=== PATIENT | male | born 1940 | race Caucasian/White ===

== ENCOUNTER 2023-01-12 18:51 | Emergency (ER) | payer MEDICARE, OTHER ==
--- NOTE | 2023-01-12 20:37 | ED Physician Documentation ---
History of Present Illness - Stated complaint Stated Complaint: LEG SWELLING - Chief complaint Chief Complaint: Ext Problem - History obtained from History obtained from: Patient - Additonal information Additional information: HPI from patient. Patient complains of gradual onset but steadily progressive swelling of bilateral lower extremities, scrotum.Denies history of similar symptoms. Does not offer shortness of breath as a chief complaint, but does indicate he is having some dyspnea on exertion on ROS; this JOSEPH has also been over past 3-4 days. Patient takes no medications and has no medication allergies. He does not have a primary care provider and, after much discussion, it is apparent that he has no recollection as to when he last saw a primary care provider on a routine basis. Patient denies chest pain/pressure/tightness. Patient denies fever, cough. Review of Systems Constitutional: denies: Fever, Chills, Sweats Cardiac: reports: Pedal edema. denies: Chest pain / pressure, Palpitations, Calf pain Respiratory: reports: Dyspnea. denies: Cough, Hemoptysis, Wheezing GI: reports: Reviewed and negative : denies: Dysuria, Frequency Skin: reports: Reviewed and negative Musculoskeletal: reports: Extremity swelling Neurologic: denies: Generalized weakness, Focal weakness, Numbness, Headache PD PAST MEDICAL HISTORY - Past Medical History Past Medical History: Yes Other Past Medical History: Patient says he was seen by a urologist in connection with visit to the emergency department at [facility] 1 or 2 years ago. The details are unclear, but patient says that there was suspicion of a tumor which has resulted in difficulty urinating; as result, patient self c aths several times each day - Present Medications Home Medications: Ambulatory Orders Medication Instructions Recorded Confirmed Apixaban [Eliquis] 5 mg PO BID #60 tablet 01/13/23 Furosemide [Lasix] 40 mg PO DAILY #14 tablet 01/13/23 Metoprolol Tartrate [Lopressor] 50 mg PO BID #60 tablet 01/13/23 - Allergies Allergies/Adverse Reactions: Allergies Allergy/AdvReac Type Severity Reaction Status Date / Time No Known Drug Allergies Allergy Verified 01/12/23 18:55 PD ED PE NORMAL - Vitals Vital signs reviewed: Yes - General General: Alert and oriented X 3, No acute distress, Well developed/nourished - HEENT HEENT: Moist mucous membranes - Neck Neck: No JVD - Respiratory Respiratory: No respiratory distress, Other (bibasial rales, predominantly on right) - Abdomen Abdomen: Soft, Non tender - Derm Derm: Normal color, Warm and dry PD ED PE EXPANDED - Cardiac Cardiac: Irregularly irregular - Extremities Extremities: Pedal edema bilateral (2+ pitting edema bilaterally from inguinal creases to toes) Results - Vitals Vitals: Oxygen O2 Source Room air - EKG (time done) No standard instances EKG releavant findings:: EKG personally interpreted by author of this note. Relevant findings are: Rate: Rate (enter#) (105) Rhythm: Atrial fibrillation QRS: Normal Ischemia: Non specific changes - Labs Labs: Laboratory Tests 01/12/23 01/12/23 01/12/23 20:57 20:57 20:57 WBC 9.3 RBC 4.77 Hgb 14.2 Hct 43.0 MCV 90.1 MCH 29.8 MCHC 33.0 RDW 14.8 Plt Count 237 MPV 9.9 Neut # (Auto) 6.1 Lymph # (Auto) 1.6 [place] # (Auto) 1.4 H Eos # (Auto) 0.0 Baso # (Auto) 0.1 Absolute Nucleated RBC 0.00 Nucleated RBC % 0.0 PT INR APTT Sodium 135 Potassium 4.2 Chloride 99 L Carbon Dioxide 25 Anion Gap 11.0 BUN 18 Creatinine 0.9 Estimated GFR (MDRD) 81 L Glucose 91 Calcium 9.2 Total Bilirubin 1.5 H AST 58 H ALT 46 Alkaline Phosphatase 153 H Troponin I High Sens 30.7 H* B-Natriuretic Peptide Total Protein 7.6 Albumin 3.8 Globulin 3.8 Albumin/Globulin Ratio 1.0 Lipase 31 TSH 01/12/23 01/13/23 01/13/23 20:57 02:01 02:01 WBC RBC Hgb Hct MCV MCH MCHC RDW Plt Count MPV Neut # (Auto) Lymph # (Auto) [place] # (Auto) Eos # (Auto) Baso # (Auto) Absolute Nucleated RBC Nucleated RBC % PT INR APTT Sodium Potassium Chloride Carbon Dioxide Anion Gap BUN Creatinine Estimated GFR (MDRD) Glucose Calcium Total Bilirubin AST ALT Alkaline Phosphatase Troponin I High Sens 31.4 H* B-Natriuretic Peptide 921 H Total Protein Albumin Globulin Albumin/Globulin Ratio Lipase TSH 2.90 01/13/23 04:43 WBC RBC Hgb Hct MCV MCH MCHC RDW Plt Count MPV Neut # (Auto) Lymph # (Auto) [place] # (Auto) Eos # (Auto) Baso # (Auto) Absolute Nucleated RBC Nucleated RBC % PT 16.4 H INR 1.5 H APTT 37.3 H Sodium Potassium Chloride Carbon Dioxide Anion Gap BUN Creatinine Estimated GFR (MDRD) Glucose Calcium Total Bilirubin AST ALT Alkaline Phosphatase Troponin I High Sens B-Natriuretic Peptide Total Protein Albumin Globulin Albumin/Globulin Ratio Lipase TSH - Rads (name of study) chest xray Relevant Findings:: Prelim report reviewed, See rad report PD Medical Decision Making - ED course Complexity details: reviewed results, re-evaluated patient, considered differential, d/w patient ED course: presents with chief c/o BLE edema and found to be in new-onset atrial fibrill ation. Timing of onset of atrial fibrillation is unknown; patient does not feel palpitations. Electrocardioversion in ED is not an option due to unknown onset. He has no EKG findings nor symptoms (specifically, no chest pain/pressure) to suggest ACS , and hs-cTn , although mildly elevated (30.2), is without significant change on 5-hour redraw (31.4). BNP elevated at 921 and this, combined with BLE edema and abnormalities on cxr (cardiomegaly, pulmonary effusions and edema) are s/o CHF. Normal TSH makes hyper/hypothyroid cause/contribution unlikely. Initial plan was to hold patient overnight in ED for admit in AM when beds become available; reason for admission would be mutifactorial: patient has no PMD and thus obtaining follow up in a timely fashion would be challenging, and medications for new-onset atrial fibrillation, CHF, and HTN can be monitored for appropriate effect and titrated accordingly. Patient was held in ED overnight, but it was found that metoprolol PO effected good rate control, adequate BP improvement (remained elevated but increasingly appropriate for outpatient f/u). He is given lovenox for anticoagulation, then rx eliquis. He is given lasix IV in ED with good UO and improvement in his subjective dyspnea (no respiratory difficulty/distress throughout ED stay). Lasix and metoprolol prescriptions also provided. Although echo was ordered, unclear if/when this would be done. Given his gradual but steady improvement overnight , with achievement of rate control (remains in atrial fibrillation), modest but adequate improvement in blood pressures, and brisk diuresis with no respiratory problems and normal room-air pulse ox, plan is to d/c home. Despite not having seen a PMD for many years, he does have insurance and thus confidence is high that he will be able to arrange follow up with a PMD in a reasonable timeframe (ideally, within no more than 2-3 weeks). We discussed his diagnoses, medications, and return precautions at length. He is comfortable with d/c home. Departure - Departure Disposition: , Self Care Clinical Impression: Peripheral edema Atrial fibrillation Qualifiers: Atrial fibrillation type: persistent (not longstanding) Qualified Code(s): I48.19 - Other persistent atrial fibrillation Hypertension Qualifiers: Hypertension type: unspecified Qualified Code(s): I10 - Essential (primary) hypertension Condition: Good Instructions: ED Afib, ED Edema Legs Bilateral, ED Hypertension New Begin Tx Prescriptions: Apixaban [Eliquis] 5 mg PO BID #60 tablet Furosemide [Lasix] 40 mg PO DAILY #14 tablet Metoprolol Tartrate [Lopressor] 50 mg PO BID #60 tablet Comments: Prescriptions for a blood thinner (apixaban), metoprolol (blood pressure medication that can also help control your heart rate). And furosemide (a diuretic, or "water pill") have all been electronically submitted to the [facility] pharmacy in [place]. During your stay in the emergency department, it is noted that you are in an abnormal heart rhythm called atrial fibrillation; information on this diagnosis are provided within these discharge sheets. As we discussed, one of the chief concerns/risks of atrial fibrillation is an associated risk of stroke. The blood thinner I am prescribing will help significantly lower this risk. Another problem with atrial fibrillation can be an abnormally elevated heart rate; the metoprolol should help control the heart rate. As we discussed, you had significantly elevated blood pressures during your emergency department stay. The metoprolol is also helpful in lowering blood pressure. You might need adjustments in the dose of the metoprolol, or possibly the addition of a second blood pressure medication, but this can be determined by your doctor when you are seen in follow-up. As we discussed, I would recommend that you record your blood pressure 2 or 3 times per day and bring a record of your blood pressures to your doctor when you follow-up. The abnormal heart rhythm (atrial fibrillation) is possibly causing the fluid buildup in your legs and your lungs (as shown on the chest x-ray). If not the cause, it is likely at least a contributing factor. As we discussed, an ultrasound of your heart (echocardiogram) might help and determining other causes and/or contributing factors regarding the fluid buildup. Your primary care provider can order an outpatient echocardiogram if they feel this would be a helpful test. I have prescribed the furosemide to help reduce the amount of fluid in the lungs and the legs. This effect is gradual. I am only providing a 2-week supply of the furosemide, as this requires follow-up to ensure that it is not affecting your kidney function tests nor your potassium level (your primary care provider can recheck these blood tests at their discretion). Discharge Date/Time: 01/13/23 10:50
[2023-01-12 21:07] LABS: BASOPHILS # (AUTO) 0.1 10^3/uL (0.0-0.1); BASOPHILS % (AUTO) 0.6 %; EOSINOPHILS % (AUTO) 0.2 %; HGB - HEMOGLOBIN 14.2 g/dL (14.0-18.0); LYMPHOCYTES # (AUTO) 1.6 10^3/uL (1.5-3.5); LYMPHOCYTES % (AUTO) 17.6 %; MEAN CORPUSCULAR HEMOGLOBIN 29.8 pg (27.0-31.0); MEAN CORPUSCULAR VOLUME 90.1 fL (80.0-94.0); MEAN PLATELET VOLUME 9.9 fL (7.4-11.4); MONOCYTES # (AUTO) 1.4 10^3/uL (0.0-1.0); MONOCYTES % (AUTO) 15.1 %; NEUTROPHILS # (AUTO) 6.1 10^3/uL (1.5-6.6); NEUTROPHILS % (AUTO) 66.3 %; PLT - PLATELET COUNT 237 10^3/uL (130-450); RED BLOOD COUNT 4.77 10^6/uL (4.70-6.10); RED CELL DISTRIBUTION WIDTH 14.8 % (12.0-15.0); WHITE BLOOD COUNT 9.3 x10^3/uL (4.8-10.8)
[2023-01-12] MEDS ORDERED: diltiaZEM INJ 5 MG/ML VIAL IVP STA (21:09)
[2023-01-12 21:22] LABS: ALBUMIN 3.8 g/dL (3.2-5.5); BILIRUBIN,TOTAL 1.5 mg/dL (0.2-1.0); CALCIUM 9.2 mg/dL (8.5-10.3); CREATININE 0.9 mg/dL (0.6-1.2); POTASSIUM 4.2 mmol/L (3.5-5.0); TOTAL PROTEIN 7.6 g/dL (6.7-8.2)
--- NOTE | 2023-01-12 22:49 | XRAY Report ---
PROCEDURE: Chest 2 View X-Ray INDICATIONS: dyspnea TECHNIQUE: 2 views of the chest were acquired. COMPARISON: None. FINDINGS: Surgical changes and devices: None. Lungs and pleura: There is mild pulmonary edema. Small bilateral pleural effusions are present. Asso ciated medial bibasilar opacities likely representing compressive atelectasis. No pneumothorax. Mediastinum: Mediastinal contours appear normal. Heart size is mildly enlarged. Bones and chest wall: No suspicious bony lesions. Overlying soft tissues appear unremarkable. IMPRESSION: 1. Mild cardiomegaly with pulmonary edema and small pleural effusions compatible with congestive hear t failure. Reviewed by: Salvatore Smith MD on 01/12/2023 10:48 PM PDT Approved by: Salvatore Smith MD on 01/12/2023 10:48 PM PDT Station ID: [id number]
[2023-01-12] MEDS ORDERED: METOPROLOL TARTRATE 50 MG TABLET PO STA (23:41)
[2023-01-13] MEDS ORDERED: FUROSEMIDE 40 MG/4 ML VIAL IVP STA (01:53)
[2023-01-13] MEDS ORDERED: ENOXAPARIN 80 MG/0.8 ML SYRINGE SUBQ STA (02:36)
[2023-01-13 04:54] LABS: INR 1.5 (0.8-1.2); PT - PROTHROMBIN TIME 16.4 secs (9.9-12.6)
[2023-01-13 05:01] LABS: PARTIAL THROMBOPLASTIN TIME 37.3 secs (24.9-33.3)
[2023-01-13 09:54] VITALS: BP 176/117
== END 2023-01-13 10:50 | disposition home or self-care (01) ==
LOC: ED 18:51
DX: R60.0 Localized edema (principal); I10 Essential (primary) hypertension; I48.19 Other persistent atrial fibrillation
CPT/HCPCS: 36415; 71046; 80053; 83690; 83880; 84443; 84484; 85025; 85610; 85730; 93005; 96372; 96374; 96375; 99284; A9270; J1650

== ENCOUNTER 2023-01-27 08:18 | Outpatient (CLI) | payer MEDICARE, OTHER | END 2023-01-27 23:59 | disposition critical access hospital (66) | LOC: EMS 08:18 | DX: M79.89 Other specified soft tissue disorders (principal); M79.604 Pain in right leg; L53.9 Erythematous condition, unspecified; S91.301A Unspecified open wound, right foot, initial encounter; X58.XXXA Exposure to other specified factors, initial encounter | CPT/HCPCS: A0425; A0429 ==

== ENCOUNTER 2023-01-27 08:39 | Inpatient (IN) | payer MEDICARE, OTHER ==
[2023-01-27] MEDS ORDERED: cefTRIAXone 1 GM in SODIUM CHLORIDE 0.9% MINIBAG 100 ML IV STA (09:50)
[2023-01-27 10:18] LABS: BASOPHILS % (AUTO) 0.3 %; EOSINOPHILS # (AUTO) 0.1 10^3/uL (0.0-0.7); EOSINOPHILS % (AUTO) 0.4 %; HCT - HEMATOCRIT 41.9 % (42.0-52.0); HGB - HEMOGLOBIN 13.4 g/dL (14.0-18.0); LYMPHOCYTES # (AUTO) 1.3 10^3/uL (1.5-3.5); LYMPHOCYTES % (AUTO) 8.9 %; MEAN CORPUSCULAR HEMOGLOBIN 29.1 pg (27.0-31.0); MEAN CORPUSCULAR VOLUME 91.1 fL (80.0-94.0); MEAN PLATELET VOLUME 9.6 fL (7.4-11.4); MONOCYTES # (AUTO) 1.7 10^3/uL (0.0-1.0); NEUTROPHILS # (AUTO) 11.7 10^3/uL (1.5-6.6); NEUTROPHILS % (AUTO) 78.1 %; PLT - PLATELET COUNT 352 10^3/uL (130-450)
[2023-01-27 10:20] LABS: SLIDE REVIEW? Indicated
[2023-01-27 10:41] LABS: ALBUMIN/GLOBULIN RATIO 0.6 (1.0-2.2); BILIRUBIN,TOTAL 2.3 mg/dL (0.2-1.0); CALCIUM 8.5 mg/dL (8.5-10.3); CREATININE 0.9 mg/dL (0.6-1.2); TOTAL PROTEIN 7.9 g/dL (6.7-8.2)
[2023-01-27 10:42] LABS: POTASSIUM 2.2 mmol/L (3.5-5.0)
[2023-01-27 10:44] LABS: DIFFERENTIAL COMMENT MANUAL=AUTO DIFF; PLATELET ESTIMATE, MANUAL NORMAL (130-450,000) (NORMAL); PLATELET MORPHOLOGY NORMAL APPEARANCE (NORMAL); WBC MORPHOLOGY (MULTIPLE) NORMAL APPEARANCE (NORMAL)
--- NOTE | 2023-01-27 10:55 | ED Physician Documentation ---
History of Present Illness - Stated complaint Stated Complaint: CELLULITIS - Chief complaint Chief Complaint: Wound - History obtained from History obtained from: Patient - History of Present Illness Timing: How many weeks ago (2) - Additonal information Additional information: 82-year-old Gio Lewis lives on his [place] in the [place] in [place] and 2 weeks ago he presented to the emergency department with lower extremity swelling and dyspnea and was found to be in new onset atrial fibrillation. He was started on metoprolol Lasix and Eliquis and had improvement in the swelling especially in his left leg and he placed a compression stocking on his right foot that went up to his ankle and yesterday he went to take this off and discovered that his leg is red from the tip of his toes to the knee and that he has some open wounds to the area where the cuff of the compression stocking rests just above his ankle. He called the ambulance for transport to the hospital with concerns about infection in his leg. Review of Systems Constitutional: denies: Fever Eyes: denies: Decreased vision Ears: denies: Ear pain Nose: denies: Rhinorrhea / runny nose, Congestion Throat: denies: Sore throat Cardiac: denies: Chest pain / pressure, Palpitations Respiratory: denies: Dyspnea, Cough GI: denies: Abdominal Pain, Nausea, Vomiting, Constipation, Diarrhea : reports: Other (the patient self caths). denies: Dysuria, Frequency Musculoskeletal: reports: Extremity pain, Extremity swelling Neurologic: denies: Generalized weakness, Focal weakness, Numbness PD PAST MEDICAL HISTORY - Past Medical History Past Medical History: Yes : Other - Past Surgical History Past Surgical History: No - Present Medications Home Medications: Ambulatory Orders Medication Instructions Recorded Confirmed Apixaban [Eliquis] 10 mg PO DAILY 01/27/23 01/27/23 Furosemide [Lasix] 80 mg PO DAILY 01/27/23 01/27/23 Gabapentin [Neurontin] 3 cap PO DAILY 01/27/23 01/27/23 Losartan [Cozaar] 1 tab PO DAILY 01/27/23 01/27/23 Metoprolol Tartrate [Lopressor] 2 tab PO DAILY 01/27/23 01/27/23 Naproxen Sodium [Aleve] 1 tab PO DAILY PRN 01/27/23 01/27/23 - Allergies Allergies/Adverse Reactions: Allergies Allergy/AdvReac Type Severity Reaction Status Date / Time No Known Drug Allergies Allergy Verified 01/12/23 18:55 - Social History Does the pt smoke?: No Smoking Status: Never smoker PD ED PE NORMAL - Vitals Vital signs reviewed: Yes (hypertensive mild ) - General General: Alert and oriented X 3, No acute distress, Well developed/nourished - HEENT HEENT: Atraumatic, PERRL, EOMI - Neck Neck: Supple, no meningeal sign, No bony TTP - Cardiac Cardiac: No murmur - Respiratory Respiratory: No respiratory distress, Clear bilaterally - Abdomen Abdomen: Soft, Non tender - Back Back: No CVA TTP, No spinal TTP - Derm Derm: Normal color, Warm and dry, No rash - Extremities Extremities: Other (There is marked swelling to the right lower extremity that extends from the foot to the knee. The lower extremity is erythematous there is a line consistent with the top of the a compression stocking that has necrotic tissue along the stripe posteriorly on the calf.There is an anterior ulceration.) - Neuro Neuro: Alert and oriented X 3, supervisor spring up 2-12 intact, No motor deficit, No sensory deficit, Normal speech Eye Opening: Spontaneous Motor: Obeys Commands Verbal: Oriented GCS Score: 15 - Psych Psych: Normal mood, Normal affect Results - Vitals Vitals: Vital Signs - 24 hr 01/27/23 01/27/23 01/27/23 09:13 11:00 12:29 Temperature 37.0 C Heart Rate 91 88 90 Respiratory 20 16 17 Rate Blood Pressure 128/103 H 157/107 H 137/98 H O2 Saturation 100 100 98 01/27/23 13:31 Temperature Heart Rate Respiratory 17 Rate Blood Pressure 150/114 H O2 Saturation 98 Oxygen O2 Source Room air - Labs Labs: Microbiology 01/27/23 09:57 Wound Culture - Preliminary Leg - Right Laboratory Tests 01/27/23 01/27/23 01/27/23 10:09 10:09 10:09 WBC 15.0 H RBC 4.60 L Hgb 13.4 L Hct 41.9 L MCV 91.1 MCH 29.1 MCHC 32.0 RDW 16.0 H Plt Count 352 MPV 9.6 Neut # (Auto) 11.7 H Lymph # (Auto) 1.3 L [place] # (Auto) 1.7 H Eos # (Auto) 0.1 Baso # (Auto) 0.0 Absolute Nucleated RBC 0.00 Band Neuts % (Manual) Not Reportable Abnorm Lymph % (Manual) Not Reportable Nucleated RBC % 0.0 Neutrophils # (Manual) Not Reportable Lymphocytes # (Manual) Not Reportable Monocytes # (Manual) Not Reportable Eosinophils # (Manual) Not Reportable Basophils # (Manual) Not Reportable Differential Comment MANUAL=AUTO DIFF Manual Slide Review Indicated WBC Morphology NORMAL APPEARANCE Platelet Estimate NORMAL (130-450,000) Platelet Morphology NORMAL APPEARANCE RBC Morph Micro Appear 1+ TARGET CELLS ESR Sodium 141 Potassium 2.2 L* Chloride 93 L Carbon Dioxide 39 H* Anion Gap 9.0 BUN 21 H Creatinine 0.9 Estimated GFR (MDRD) 81 L Glucose 95 Lactic Acid 1.4 Calcium 8.5 Total Bilirubin 2.3 H AST 45 H ALT 52 Alkaline Phosphatase 170 H Troponin I High Sens B-Natriuretic Peptide Total Protein 7.9 Albumin 3.0 L Globulin 4.9 H Albumin/Globulin Ratio 0.6 L Lipase 43 01/27/23 01/27/23 01/27/23 10:09 10:09 10:09 WBC RBC Hgb Hct MCV MCH MCHC RDW Plt Count MPV Neut # (Auto) Lymph # (Auto) [place] # (Auto) Eos # (Auto) Baso # (Auto) Absolute Nucleated RBC Band Neuts % (Manual) Abnorm Lymph % (Manual) Nucleated RBC % Neutrophils # (Manual) Lymphocytes # (Manual) Monocytes # (Manual) Eosinophils # (Manual) Basophils # (Manual) Differential Comment Manual Slide Review WBC Morphology Platelet Estimate Platelet Morphology RBC Morph Micro Appear ESR 14 Sodium Potassium Chloride Carbon Dioxide Anion Gap BUN Creatinine Estimated GFR (MDRD) Glucose Lactic Acid Calcium Total Bilirubin AST ALT Alkaline Phosphatase Troponin I High Sens 32.0 H* B-Natriuretic Peptide 724 H Total Protein Albumin Globulin Albumin/Globulin Ratio Lipase PD Medical Decision Making - ED course Reviewed Lab Results: We reviewed a complete blood count showing an elevated white blood cell count of 15,000 with a left shift. He has normal hemoglobin hematocrit and platelets. The patient's electrolytes showed a critically low potassium of 2.2 and elevated carbon dioxide of 39 and a low chloride of 93 BUN elevated at 21 bilirubin 2.3 AST 45 mildly elevated mildly elevated alkaline phosphatase lactate is 1.4 my interpretation of these results is it appears the patient may have hypokalemia as a result of diuresis and this looks to have caused some contraction alkalosis. The elevated white blood cell count is consistent with the infection seen on examination and indicates an a significant infection. ED course: 82-year-old male with peripheral edema as a result of congestive failure related to atrial fibrillation has gained control of his atrial fibrillation and is diuresing. He has developed an infection in the right lower extremity related to the use of a compression stocking. The infection appears significant and the patient's electrolyte abnormalities combined with the appearance of infection indicate hospitalization. I have talked to our hospitalist Dr. Gaming and she will admit the patient for further care. I did ask for a wound care consult. Here in the ED he has been given IV rocephin and potassium. We consulted wound care and Dr. Aguayo presented to the emergency department to evaluate the patient. He recommends an arterial Doppler of the right lower extremity as there is some monophasic waveforms in the [id number] ultrasound used. He recommends hospitalization for care of the cellulitis and congestive failure. He does point out the patient has not had echocardiogram as yet. Departure - Departure Disposition: [facility] DC/Xfer Clinical Impression: Hypokalemia Cellulitis Qualifiers: Site of cellulitis: extremity Site of cellulitis of extremity: lower extremity Laterality: right Qualified Code(s): L03.115 - Cellulitis of right lower limb Discharge Date/Time: 01/27/23 14:55
[2023-01-27] MEDS ORDERED: POTASSIUM BICARB 25 MEQ TABLET PO STA (11:07)
[2023-01-27] MEDS ORDERED: POTASSIUM CHLOR 10 MEQ/100 ML 10 MEQ/100 ML BAG IV ONE (11:07)
[2023-01-27] MEDS ORDERED: ONDANSETRON 4 MG/2 ML VIAL IVP PRN (13:44)
[2023-01-27] MEDS ORDERED: SODIUM CHLORIDE FLUSH 0.9% 10 ML SYRINGE IVP PRN (13:44)
[2023-01-27] MEDS ORDERED: FUROSEMIDE 20 MG/2 ML VIAL IVP SCH (14:00)
--- NOTE | 2023-01-27 14:00 | HISTORY & PHYSICAL EXAMINATION ---
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 He has not seen a doctor in many years. He is retired and wanted to be [place]. 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 Two weeks ago he came to our ER with complaints of slowly progressing leg edema and new shortness of breath w/ exertion. He was found to be in heart failure on chest x-ray and in new onset of atrial fib. He was discharged from that ER visit on Metoprolol, Eliquis and Lasix. He has been taking these medications as prescribed and also using compression RILEY hose for the leg swelling. When he took off the RILEY hose last night, he noticed there was redness of his R leg from ankle up to the thigh, and a line of skin breakdown where the lower edge of the RILEY hose was compressing his skin. He put on Neosporin and a gauze bandage. This morning he saw the linear open wound was draining pus and\\ he called an ambulance and was brought into the ER. He denies a fever or chills. Wound cultu res and blood cultures were taken, and he was given IV Ceftriaxone. Lab work-up showed elevated WBC of 15, but normal Lactic Acid level, he has a potassium of 2.2 and he has been ordered to get potassium replacement. Wound consult was requested and Dr. Stark from the [facility] saw him and was concerned about arterial insufficiency and has ordered an ultrasound arterial of the leg. The ED provider spoke to me about this patient. The patient will be admitted for management of severe hypokalemia caused by diuretic use and for treating R leg cellulitis and an purulent leg wound. I spoke to him about his CODE BLUE wishes and he wants to be a full code. History - Past Medical History Cardiovascular: reports: Congestive heart failure, Atrial fibrillation : reports: Retention (and he does self-catheterization) MRSA Hx?: No - Family & Social History Family History Comment/Other: No diseases run in the family. He has no natural children. He has a half sister who and another half sister who is alive. Living arrangement: Other (He lives on a boat in [place]) Living Situation: Alone Social History Notes: He is retired full-time [employer]. 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 He drives a car. He quit smoking 20 years ago. He drinks no alcohol. There is no drug abuse history. - Substance History Use: Uses substance without health or social issues: NONE Meds/Allgy - Home Medications Home Medications: Ambulatory Orders Medication Instructions Recorded Confirmed Apixaban [Eliquis] 10 mg PO DAILY 01/27/23 01/27/23 Furosemide [Lasix] 80 mg PO DAILY 01/27/23 01/27/23 Gabapentin [Neurontin] 3 cap PO DAILY 01/27/23 01/27/23 Losartan [Cozaar] 1 tab PO DAILY 01/27/23 01/27/23 Metoprolol Tartrate [Lopressor] 2 tab PO DAILY 01/27/23 01/27/23 Naproxen Sodium [Aleve] 1 tab PO DAILY PRN 01/27/23 01/27/23 - Allergies Allergies/Adverse Reactions: Allergies Allergy/AdvReac Type Severity Reaction Status Date / Time No Known Drug Allergies Allergy Verified 01/12/23 18:55 Review of Systems - Cardiovascular Cariovascular: reports: Edema - Genitourinary Genitourinary: reports: Other (Urinary retention and needs to self-cath) - Integumentary Integumentary: reports: Lesions (R leg redness and open wounds near R ankle) - All Other Systems All Other Systems: reports: Reviewed and negative Exam - Vital Signs Vital Signs: Vital Signs x48h Temp Pulse Resp BP Pulse Ox 01/27/23 13:31 17 150/114 H 98 01/27/23 12:29 90 17 137/98 H 98 01/27/23 11:00 88 16 157/107 H 100 01/27/23 09:13 37.0 C 91 20 128/103 H 100 - Physical Exam General Appearance: positive: No acute distress, Alert, Other (Elderly thin male, wearing a cap) Eyes Bilateral: positive: EOMI, Other (Sclerae are icteric) ENT: positive: ENT inspection nml, No signs of dehydration Neck: positive: Nml inspection, No JVD Respiratory: positive: No respiratory distress, Breath sounds nml Cardiovascular: positive: No murmur, Irregularly irregular Abdomen: positive: Non-tender, No distention Skin: positive: Warm, Dry, Other (Icteric) Extremities: positive: Other (2+ edema of both legs to above the knees. Right leg has a diffuse redness from the ankle up to the groin. There is a grade 1 round clean abrasion, size of a quarter, on the anterior ankle. There is a circumferential linear wound at the ankle level, which is draining yellow pus.) Conclusion/Plan - Problem List (1) Hypokalemia Conclusion/Plan: All labs were reviewed. His K is 2.2. This is likely from being on diuretics for 2-week This is <2.5, and he is at risk of arrhythmias Plan: Admit to inpatient status, monitor for dysrhythmias on telemetry Replace potassium. Monitor serum potassium every 12 hours (2) Cellulitis Conclusion/Plan: The source appears to be the linear wound which is circumferential, at the spot where the lower RILEY stockings were impinging his skin, which is draining yellow pus Plan: Await wound culture and blood culture results Continue with IV antibiotics, will use empiric IV Vanco for gram-positive plus MRSA coverage Start probiotics Await recommendations from the [facility]ound Clinic excellence consultant, Dr Stark, regarding drressing to manage the open wound Give pain meds if needed Qualifiers: Site of cellulitis: extremity Site of cellulitis of extremity: lower extremity Laterality: right Qualified Code(s): L03.115 - Cellulitis of right lower limb (3) Atrial fibrillation Conclusion/Plan: Two weeks ago, this was a new finding for him and he was started on beta-duane and Eliquis. He has been compliant with both meds. The heart rate at rest is under control today. Plan: Continue with a beta-blockerbut will change Tartrate to Succinate for even be tter HR control Continue his Eliquis dose Monitor rhythm on telemetry Check his TSH Qualifiers: Atrial fibrillation type: unspecified chronic Qualified Code(s): I48.20 - Chronic atrial fibrillation, unspecified; I48.2 - Chronic atrial fibrillation (4) CHF (congestive heart failure) Conclusion/Plan: Two weeks ago when he presented in new A-fib he had leg edema and pulmonary edema on chest x-ray. An outpatient Echo was planned. He had not yet seen a (new) PCP to have that done. Two weeks ago he had troponins done x2 which were normal at 30 and 34. There was no BNP done today An Echocardiogram was just done today. This shows LV systolic failure and RV systolic failure. These were likely caused by having rapid A-fib, for unknown duration. Plan: Will add spironolactone and LEWIS inhibitor, continue his beta-duane. Woill order a low salt diet. Will hold the Lasix for 1-2 days, given the contraction alkalosis on labs (CO2 39), and prerenal azotemia on labs (BUN/creat 21/0.9) (all labs were reviewed) Check troponins x2, and a resting EKG Obtain a CXR Check BNP and follow this daily while we are treating CHF Follow his daily weight, I's and O's, electrolytes and magnesium daily, replace if low (5) Hypertension Conclusion/Plan: He is running blood pressures around 150 systolic/100-1 10 diastolic Plan: We will add Lisinopril and spironolactone and continue a beta-duane, for CHF management as well as for blood pressure control Order low-salt diet Qualifiers: Hypertension type: unspecified Qualified Code(s): I10 - Essential (primary) hypertension (6) Elevated bilirubin Conclusion/Plan: The patient denies alcohol use or abuse. He has a mildly elevated AST and alk phos plus this bili is elevated at 2.3. 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 Since EKG from 01/12/2023, similar findings. - Other Other Results/Comments: Attestation: The patient is expected to be hospitalized greater than 2 midnights and is expected to be discharged or transferred to another facility within 96 hours: Yes
--- NOTE | 2023-01-27 14:34 | PHARMACY PROGRESS NOTE ---
- Therapy Status Vancomycin regimen day #: 1 Therapy status: Awaiting steady state Basis for treatment: Empirical Treatment indication: CELLULITIS Trough goal: 15-20 - KULWINDER Risk Risk level for Acute Kidney Injury: Moderate Acute Kidney Injury risk factors: Goal trough >15 - Monitoring and Recommendation Clinical response to treatment: I&O Previous 24 hours 01/25/23 01/26/23 01/27/23 23:59 23:59 23:59 Intake Total 200 Balance 200 Lab Results 01/27/23 01/27/23 10:09 10:09 ESR 14 BUN 21 H Creatinine 0.9 Estimated GFR (MDRD) 81 L Monitoring plan: Daily serum creatinine Next trough due prior to maintenance dose #: 4 Next trough due (date/time): 14:30
--- NOTE | 2023-01-27 14:50 | XRAY Report ---
PROCEDURE: Chest 1 View X-Ray INDICATIONS: CHF TECHNIQUE: One view of the chest was acquired. COMPARISON: None. FINDINGS: Surgical changes and devices: None. Lungs and pleura: No pleural effusions or pneumothorax. Lungs are clear. Mediastinum: Mediastinal contours appear normal. Mild cardiomegaly. Bones and chest wall: No suspicious bony lesions. Overlying soft tissues appear unremarkable. IMPRESSION: Mild cardiomegaly. No acute pulmonary process. Reviewed by: Guy Torres MD on 01/27/2023 2:49 PM PDT Approved by: Guy Torres MD on 01/27/2023 2:49 PM PDT Station ID: [id number]
[2023-01-27] MEDS ORDERED: VANCOMYCIN INJ 1 GM, VANCOMYCIN INJ 500 MG in SODIUM CHLORIDE 0.9% 500 ML IV ONE (15:00)
[2023-01-27] MEDS ORDERED: VANCOMYCIN INJ 1.5 GM in SODIUM CHLORIDE 0.9% 500 ML IV ONE (15:00)
--- NOTE | 2023-01-27 15:05 | PHARMACY PROGRESS NOTE ---
- Best Possible Medication History Admit Date and Time: 01/27/23 1348 Processed by: Pharmacy Medication History completed: Yes Patient Interview: Completed Secondary Source(s): Pharmacy records (Takes all his meds in the morning) As the person ultimately responsible for medication therapy, providers are able to order a medication from an existing home medication list in [facility] via the "Reconcile Routine" prior to Confirmation of that medication by applications support lead. Such practice is discouraged except when the physician, in their clinical judgment, deems that a medical need exists for a medication without regard to previous use.
[2023-01-27] MEDS: SODIUM CHLORIDE FLUSH 0.9% 10 ML SYRINGE IVP SCH ×2 (15:46→23:43)
[2023-01-27] MEDS ORDERED: lisinopriL 5 MG TABLET PO STA (16:57)
[2023-01-27] MEDS: POTASSIUM CHLOR 10 MEQ/100 ML 10 MEQ/100 ML BAG IV SCH ×4 (19:23→23:34)
[2023-01-27] MEDS ORDERED: METOPROLOL TARTRATE 50 MG TABLET PO SCH (21:00)
[2023-01-27] MEDS: APIXABAN 5 MG TABLET PO SCH (21:48)
[2023-01-27] MEDS: METOPROLOL SUCCINATE 50 MG TABLET PO SCH (21:48)
--- NOTE | 2023-01-28 01:20 | Ultrasound Report ---
PROCEDURE: Duplex Lwr Ext Arterial RT INDICATIONS: open wounds/cellulitis TECHNIQUE: Color and pulse Doppler interrogation was performed of the right lower extremity arterial system, wit h image documentation. COMPARISON: None. FINDINGS: Common femoral artery: 105 cm/sec, with monophasic low resistance flow. Deep femoral artery: 210 cm/sec, with monophasic flow. Proximal superficial femoral artery: 48 cm/sec, with monophasic flow. Mid superficial femoral artery: 39 cm/sec, with monophasic flow. Distal superficial femoral artery: 19 cm/sec, with monophasic flow. Popliteal artery: 104 cm/sec, with monophasic low resistance flow. Posterior tibial artery: 36-43 cm/sec, with monophasic flow. Anterior tibial artery/dorsalis pedis: 26, 22 cm/sec, with monophasic flow. Brock-scale imaging description: There is severe atherosclerotic plaque within the right lower extrem ity. IMPRESSION: 1. Multifocal stenoses within the right lower extremity including hemodynamically significant stenose s within the profunda and distal superficial femoral arteries. 2. Sequelae of multifocal narrowing in the lower leg. Reviewed by: Salvatore Smith MD on 01/28/2023 1:19 AM PDT Approved by: Salvatore Smith MD on 01/28/2023 1:19 AM PDT Station ID: [id number]
[2023-01-28 06:29] LABS: BASOPHILS % (AUTO) 0.4 %; EOSINOPHILS # (AUTO) 0.1 10^3/uL (0.0-0.7); EOSINOPHILS % (AUTO) 0.8 %; HCT - HEMATOCRIT 34.7 % (42.0-52.0); HGB - HEMOGLOBIN 11.2 g/dL (14.0-18.0); LYMPHOCYTES # (AUTO) 1.5 10^3/uL (1.5-3.5); LYMPHOCYTES % (AUTO) 13.8 %; MEAN CORPUSCULAR HEMOGLOBIN 29.5 pg (27.0-31.0); MEAN CORPUSCULAR HGB CONC 32.3 g/dL (32.0-36.0); MEAN CORPUSCULAR VOLUME 91.3 fL (80.0-94.0); MEAN PLATELET VOLUME 9.6 fL (7.4-11.4); MONOCYTES # (AUTO) 1.3 10^3/uL (0.0-1.0); MONOCYTES % (AUTO) 11.7 %; NEUTROPHILS # (AUTO) 7.8 10^3/uL (1.5-6.6); NEUTROPHILS % (AUTO) 72.5 %; PLT - PLATELET COUNT 300 10^3/uL (130-450); RED CELL DISTRIBUTION WIDTH 16.2 % (12.0-15.0); WHITE BLOOD COUNT 10.7 x10^3/uL (4.8-10.8)
[2023-01-28 06:46] LABS: ALBUMIN 2.2 g/dL (3.2-5.5); BILIRUBIN,DIRECT 0.6 mg/dL (0.1-0.5); BILIRUBIN,TOTAL 1.3 mg/dL (0.2-1.0); CALCIUM 7.9 mg/dL (8.5-10.3); CREATININE 0.8 mg/dL (0.6-1.2); POTASSIUM 3.1 mmol/L (3.5-5.0); TOTAL PROTEIN 6.1 g/dL (6.7-8.2)
[2023-01-28 08:08] LABS: CHOL/HDL RATIO 3.7 (<5.0); CHOLESTEROL 104 mg/dL; HDL CHOLESTEROL 28 mg/dL; LDL CHOLESTEROL,CALCULATED 65 mg/dL; LDL/HDL RATIO 2.3 (<3.6); TRIGLYCERIDES 56 mg/dL; VLDL CHOLESTEROL 11 mg/dL
[2023-01-28] MEDS: LOSARTAN 50 MG TABLET PO SCH (08:52)
[2023-01-28] MEDS: FUROSEMIDE 40 MG TABLET PO SCH (08:52)
[2023-01-28] MEDS: APIXABAN 5 MG TABLET PO SCH ×2 (08:52→20:45)
[2023-01-28] MEDS: METOPROLOL SUCCINATE 50 MG TABLET PO SCH ×2 (08:52→20:45)
[2023-01-28] MEDS: SPIRONOLACTONE 25 MG TABLET PO SCH (08:52)
[2023-01-28] MEDS: GABAPENTIN 300 MG CAPSULE PO SCH (08:52)
[2023-01-28] MEDS: SODIUM CHLORIDE FLUSH 0.9% 10 ML SYRINGE IVP SCH ×2 (08:53→18:14)
[2023-01-28] MEDS: ACETAMINOPHEN 325 MG TABLET PO PRN (08:55)
[2023-01-28] MEDS ORDERED: lisinopriL 5 MG TABLET PO SCH (09:00)
[2023-01-28] MEDS ORDERED: ASPIRIN EC 81 MG TABLET PO SCH (09:00)
[2023-01-28] MEDS ORDERED: APIXABAN 5 MG TABLET PO SCH (09:00)
--- NOTE | 2023-01-28 12:04 | PROVIDER PROGRESS NOTE ---
Assessment/Plan - Problem List (1) Open wound of right lower leg with complication Assessment/Plan: He presented with a line of skin breakdown where the lower edge of the RILEY hose was compressing his skin, circumferential around his R ankle. It had developed 2 days ago. By the time I saw him for admission yesterday, it was draining copious amounts of yellow pus. Wound solutions delivery consultant Dr Stark saw him yesterday, advised dressings, antibx and W/U for PVD. That arterial US was abnormal (see #3). The patient thinks it is draining less then yesterday already. The nurse just placed honey and a dry dressing on it, and wrapped it. Plan: Continue dressing changes, iv antibx Await Wound cx to tailor antibx Will order narcotics for pain when bearing weight, but will order PT and OT to start working with him. Await consult with recommendations from the [facility] delivery consultant, Dr Stark, regarding dressing changes etc to manage the open wound Dr Stark wants to see him weekly in [facility]. I updated the patient today with this entire plan. (2) Infection due to beta-hemolytic Streptococcus Assessment/Plan: The wound culture is growing beta-hemolytic group strep. Plan: We will stop IV vancomycin We will change to IV ampicillin (3) Cellulitis Qualifiers: Site of cellulitis: extremity Site of cellulitis of extremity: lower extremity Laterality: right Qualified Code(s): L03.115 - Cellulitis of right lower limb Assessment/Plan: The source appears to be the circumferential linear wound of the R ankle that was draining yellow pus. The entire right leg is red and the patient describes pain when bearing weight on the right Plan: Await wound culture and blood culture results Continue with IV antibiotics, will use empiric IV Vanco for gram-positive plus MRSA coverage Cont probiotics Start pain meds if needed Qualifiers: Site of cellulitis: extremity Site of cellulitis of extremity: lower extremity Laterality: right Qualified Code(s): L03.115 - Cellulitis of right lower limb (4) PVD (peripheral vascular disease) Assessment/Plan: Arterial Doppler ultrasound of the right leg was done yesterday evening and showed several areas with severe atherosclerotic stenosis Plan: I will order 1 baby aspirin daily added to his regimen Check lipids and treat with a statin if needed, target LDL will be <70 and want a high HDL. This PVD will impede his wound healing. He will need further outpatient work-up and management with a vascular specialist going forward. I told him that today. (5) Atrial fibrillation Conclusion/Plan: Two weeks ago, this was a new finding for him and he was started on beta-duane and Eliquis. He has been compliant with both meds. The heart rate at rest is under control I changed Metoprolol Tartrate to Succinate for even better HR control Plan: Continue with the beta-duane Continue his Eliquis dose Monitor rhythm on telemetry Check his TSH and if needed his T4 Qualifiers: Atrial fibrillation type: unspecified chronic Qualified Code(s): I48.20 - Chronic atrial fibrillation, unspecified; I48.2 - Chronic atrial fibrillation (6) Chronic systolic CHF (congestive heart failure) Conclusion/Plan: Two weeks ago when he presented to the ER in [facility], he c/o leg edema and pulmonary edema was seen on chest x-ray. An outpatient Echo was planned. He had not yet seen his PCP to have that Echo ordered & done. Two weeks ago he had troponins done x2 which were normal at 30 and 34. His Echocardiogram was done at admission yesterday 01/27 which showed LV systolic failure and RV systolic failure. These were likely caused by having rapid A- fib, for unknown duration. Troponins x2 again were unremarkable yesterday BNP at admission was 724 and today is 996. His admission CXR yesterday showed no pulm edema. I started him on Spironolactone and LEWIS inhibitor, continued a beta-duane, and ordered a low salt diet. I planned on holding the Lasix for a day, given the contraction alkalosis on labs (CO2 39), and prerenal azotemia on labs (BUN/creat 21/0.9) (all labs were reviewed) Plan: Continue Toprol, Losartan, Spironolactone Restart Lasix po Follow his daily weight, I's and O's, electrolytes and magnesium daily, replace if low (7) Hypokalemia Conclusion/Plan: All labs were reviewed. His K was 2.2. at admission, likely from being on diur etics for 2-week Since K was <2.5, he is at risk of arrhythmias, he was admitted and placed on telemetry. K replacement was ordered. Today K is 3.1 Plan: Cont to monitor for dysrhythmias on telemetry Replace potassium. Monitor serum potassium every 12 hours (8) Hypertension Conclusion/Plan: He was running blood pressures around 150 systolic/100-110 diastolic. I started him on Lisinopril and spironolactone and continued a beta-duane, for systolic page failure management as well as for blood pressure control Low-salt diet ordered. Plan: I will change the Lisinopril order and resume his Losartan dose, which she was taking at home, and will continue the spironolactone, beta-duane and low-salt diet. Qualifiers: Hypertension type: unspecified Qualified Code(s): I10 - Essential (primary) hypertension (9) Elevated bilirubin Conclusion/Plan: I re-questioned him today, and the patient denied alcohol use or abuse. He said he did not notice being jaundiced. He denies any history of gallbladder problems or CA with liver mets, as we spoke today. He had a mildly elevated AST and alk phos plus bili elevated at 2.3. 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 Today he gave me details that a Urologist in [place] saw him once and told him his prostate is very hard, and possibly cancerous. Patient responded that he did not want surgery. No other management was ever ordered for him such as prostate biopsy, seeds or chemo, or even tamsulosin or finasteride. He has been self cathing for 2 years. Plan: I will order that patient can self cath himself as needed, put supplies in room. Patient has an appointment with his PCP next week and I will urge that he has a Urology referral - Current Meds Current Meds: Current Medications Generic Name Dose Route Start Last Admin Trade Name Freq PRN Reason Stop Dose Admin Acetaminophen 650 mg 01/27/23 13:44 01/28/23 08:55 Acetaminophen 325 Mg Tablet PO 650 mg Q4HR PRN Administration Pain 1 to 4, or Fever Apixaban 5 mg 01/27/23 21:00 01/28/23 08:52 Apixaban 5 Mg Tablet PO 5 mg BID JOSE Administration Aspirin 162 mg 01/28/23 09:00 01/28/23 08:52 Aspirin Ec 81 Mg Tablet PO 162 mg DAILY JOSE Administration Furosemide 40 mg 01/28/23 09:00 01/28/23 08:52 Furosemide 40 Mg Tablet PO 40 mg DAILY JOSE Administration Gabapentin 900 mg 01/28/23 09:00 01/28/23 08:52 Gabapentin 300 Mg Capsule PO 900 mg DAILY JOSE Administration Losartan Potassium 50 mg 01/28/23 09:00 01/28/23 08:52 Losartan 50 Mg Tablet PO 50 mg DAILY OJSE Administration Metoprolol Succinate 50 mg 01/27/23 21:00 01/28/23 08:52 Metoprolol Succinate 50 Mg Tablet PO 50 mg BID JOSE Administration Sodium Chloride 10 ml 01/27/23 17:00 01/28/23 08:53 Sodium Chloride Flush 0.9% 10 Ml Syringe IVP 10 ml 0100,0900,1700 JOSE Administration Spironolactone 25 mg 01/28/23 09:00 01/28/23 08:52 Spironolactone 25 Mg Tablet PO 25 mg DAILY JOSE Administration - Lab Result Fish Bone Diagrams: 01/28/23 05:57 01/28/23 05:57 - Additional Planning My Orders: My Active Orders 01/27/23 13:44 Activity Orders [RC] Q2HR IO [RC] IOSHIFT Incentive Spirometry - RT [RC] .tid Initiate Bowel Care Protocol [RC] .protocol Initiate Line Care Protocol [RC] QSHIFT Initiate Personal Care Protoco [RC] .protocol Oxygen Therapy [RC] .PRN Telemetry- [RC] Q4HR Vital Signs [RC] Q4HR Acetaminophen [Tylenol] 650 mg PO Q4HR PRN Ondansetron Inj [Zofran Inj] 4 mg IVP Q6HR PRN Sodium Chloride Flush 0.9% [Normal Saline Flush 0.9%] 10 ml IVP PRN PRN Code Status [OTHERS] Routine Condition of Patient [OTHERS] Routine DVT Prophylaxis [OTHERS] Routine 01/27/23 13:45 Daily Weight [RC] 0600 IV Insert [RC] .ONCE 01/27/23 13:46 Initiate Line Care Protocol [RC] QSHIFT 01/27/23 Dinner Low Sodium Diet [DIET] 01/27/23 17:00 Sodium Chloride Flush 0.9% [Normal Saline Flush 0.9%] 10 ml IVP 0100,0900,1700 01/27/23 21:00 Apixaban [Eliquis] 5 mg PO BID Metoprolol Succinate [Toprol Xl] 50 mg PO BID 01/28/23 Evaluate and Treat OT [OT] Routine Evaluate and Treat PT [PT] Routine 01/28/23 09:00 Aspirin EC [Ecotrin] 162 mg PO DAILY Furosemide [Lasix] 40 mg PO DAILY Gabapentin [Neurontin] 900 mg PO DAILY Losartan [Cozaar] 50 mg PO DAILY Spironolactone [Aldactone] 25 mg PO DAILY 01/28/23 11:59 Miscellaenous Nursing Order [RC] QSHIFT Straight Catheter Insertion [RC] PRN 01/28/23 15:00 Vancomycin Inj [Vancomycin] 1 gm Vancomycin Inj [Vancomycin Hcl] 500 mg Sodium Chloride 0.9% [Normal Saline 0.9%] 500 ml IV Q24H 01/28/23 21:00 Atorvastatin [Lipitor] 40 mg PO QPM 01/29/23 05:00 BMP - BASIC METABOLIC PANEL [CHEM] DAILYLAB BNP - B-NATRIURETIC PEPTIDE [IAI] DAILYLAB CBC - COMP BLD CT W/AUTO DIFF [HEME] DAILYLAB LIVER PANEL [CHEM] DAILYLAB MAGNESIUM [CHEM] DAILYLAB 01/30/23 05:00 BMP - BASIC METABOLIC PANEL [CHEM] DAILYLAB CBC - COMP BLD CT W/AUTO DIFF [HEME] DAILYLAB LIVER PANEL [CHEM] DAILYLAB MAGNESIUM [CHEM] DAILYLAB 01/30/23 14:30 VANCOMYCIN TROUGH [CHEM] Timed Objective Vital Signs: Vital Signs - 24 hr 01/27/23 01/27/23 01/27/23 12:29 13:31 14:15 Temperature 36.4 C L Heart Rate 90 88 Heart Rate [ Brachial] Respiratory 17 17 16 Rate Blood Pressure 137/98 H 150/114 H 141/85 H Blood Pressure [Right Brachial artery] O2 Saturation 98 98 100 01/27/23 01/27/23 01/27/23 14:42 15:54 15:55 Temperature 36.7 C Heart Rate Heart Rate [ 53 L 92 Brachial] Respiratory 17 18 Rate Blood Pressure Blood Pressure 143/130 H 166/118 H [Right Brachial artery] O2 Saturation 100 01/27/23 01/27/23 01/28/23 20:34 23:51 05:00 Temperature 37.3 C 37.8 C 37.6 C Heart Rate Heart Rate [ 101 H 107 H 104 H Brachial] Respiratory 16 18 18 Rate Blood Pressure Blood Pressure 111/73 112/74 127/81 H [Right Brachial artery] O2 Saturation 97 96 93 01/28/23 01/28/23 08:25 11:42 Temperature 37.2 C 36.5 C Heart Rate Heart Rate [ 106 H 88 Brachial] Respiratory 18 18 Rate Blood Pressure Blood Pressure 101/80 92/63 [Right Brachial artery] O2 Saturation 93 95 Oxygen O2 Source Room air I&O (Last 24 Hrs): Intake and Output Totals x24h 01/26/23 01/27/23 01/28/23 23:59 23:59 23:59 Intake Total 1476.25 220 Output Total 600 1500 Balance 876.25 -1280 - Results Results: Laboratory Results WBC 10.7 x10^3/uL (4.8-10.8) 01/28/23 05:57 RBC 3.80 10^6/uL (4.70-6.10) L 01/28/23 05:57 Hgb 11.2 g/dL (14.0-18.0) L 01/28/23 05:57 Hct 34.7 % (42.0-52.0) L 01/28/23 05:57 MCV 91.3 fL (80.0-94.0) 01/28/23 05:57 MCH 29.5 pg (27.0-31.0) 01/28/23 05:57 MCHC 32.3 g/dL (32.0-36.0) 01/28/23 05:57 RDW 16.2 % (12.0-15.0) H 01/28/23 05:57 Plt Count 300 10^3/uL (130-450) 01/28/23 05:57 MPV 9.6 fL (7.4-11.4) 01/28/23 05:57 Neut # (Auto) 7.8 10^3/uL (1.5-6.6) H 01/28/23 05:57 Lymph # (Auto) 1.5 10^3/uL (1.5-3.5) 01/28/23 05:57 [place] # (Auto) 1.3 10^3/uL (0.0-1.0) H 01/28/23 05:57 Eos # (Auto) 0.1 10^3/uL (0.0-0.7) 01/28/23 05:57 Baso # (Auto) 0.0 10^3/uL (0.0-0.1) 01/28/23 05:57 Absolute Nucleated RBC 0.00 x10^3/uL 01/28/23 05:57 Band Neuts % (Manual) Not Reportable 01/27/23 10:09 Abnorm Lymph % (Manual) Not Reportable 01/27/23 10:09 Nucleated RBC % 0.0 /100WBC 01/28/23 05:57 Neutrophils # (Manual) Not Reportable 01/27/23 10:09 Lymphocytes # (Manual) Not Reportable 01/27/23 10:09 Monocytes # (Manual) Not Reportable 01/27/23 10:09 Eosinophils # (Manual) Not Reportable 01/27/23 10:09 Basophils # (Manual) Not Reportable 01/27/23 10:09 Differential Comment MANUAL=AUTO DIFF 01/27/23 10:09 Manual Slide Review Indicated 01/27/23 10:09 WBC Morphology NORMAL APPEARANCE (NORMAL) 01/27/23 10:09 Platelet Estimate NORMAL (130-450,000) (NORMAL) 01/27/23 10:09 Platelet Morphology NORMAL APPEARANCE (NORMAL) 01/27/23 10:09 RBC Morph Micro Appear 1+ ANISOCYTOSIS (NORMAL) 1+ TARGET CELLS (NORMAL) 01/27/23 10:09 RBC Morph Micro Appear 1+ ANISOCYTOSIS (NORMAL) 1+ TARGET CELLS (NORMAL) 01/27/23 10:09 ESR 14 mm/Hr (0-20) 01/27/23 10:09 Sodium 143 mmol/L (135-145) 01/28/23 05:57 Potassium 3.1 mmol/L (3.5-5.0) L 01/28/23 05:57 Chloride 101 mmol/L (101-111) 01/28/23 05:57 Carbon Dioxide 34 mmol/L (21-32) H 01/28/23 05:57 Anion Gap 8.0 (6-13) 01/28/23 05:57 BUN 18 mg/dL (6-20) 01/28/23 05:57 Creatinine 0.8 mg/dL (0.6-1.2) 01/28/23 05:57 Estimated GFR (MDRD) 93 (>89) 01/28/23 05:57 Glucose 104 mg/dL (70-100) H 01/28/23 05:57 Lactic Acid 1.4 mmol/L (0.5-2.2) 01/27/23 10:09 Calcium 7.9 mg/dL (8.5-10.3) L 01/28/23 05:57 Magnesium 2.0 mg/dL (1.7-2.8) 01/28/23 05:57 Total Bilirubin 1.3 mg/dL (0.2-1.0) H 01/28/23 05:57 Direct Bilirubin 0.6 mg/dL (0.1-0.5) H 01/28/23 05:57 AST 32 IU/L (10-42) 01/28/23 05:57 ALT 36 IU/L (10-60) 01/28/23 05:57 Alkaline Phosphatase 125 IU/L (42-121) H 01/28/23 05:57 Troponin I High Sens 29.1 ng/L (2.3-19.7) H* 01/27/23 17:09 B-Natriuretic Peptide 996 pg/mL (5-100) H 01/28/23 05:57 Total Protein 6.1 g/dL (6.7-8.2) L 01/28/23 05:57 Albumin 2.2 g/dL (3.2-5.5) L 01/28/23 05:57 Globulin 3.9 g/dL (2.1-4.2) 01/28/23 05:57 Albumin/Globulin Ratio 0.6 (1.0-2.2) L 01/27/23 10:09 Triglycerides 56 mg/dL (-149) 01/28/23 05:57 Cholesterol 104 mg/dL (-199) 01/28/23 05:57 LDL Cholesterol, Calc 65 mg/dL (-129) 01/28/23 05:57 VLDL Cholesterol 11 mg/dL 01/28/23 05:57 HDL Cholesterol 28 mg/dL (60-) L 01/28/23 05:57 LDL/HDL Ratio 2.3 (<3.6) 01/28/23 05:57 Cholesterol/HDL Ratio 3.7 (<5.0) 01/28/23 05:57 Lipase 43 U/L (22-51) 01/27/23 10:09
[2023-01-28] MEDS ORDERED: POTASSIUM BICARB 25 MEQ TABLET PO ONE (13:43)
[2023-01-28] MEDS: POTASSIUM CHLOR 10 MEQ/100 ML 10 MEQ/100 ML BAG IV SCH ×4 (13:54→19:24)
[2023-01-28] MEDS ORDERED: VANCOMYCIN INJ 1 GM, VANCOMYCIN INJ 500 MG in SODIUM CHLORIDE 0.9% 500 ML IV SCH (15:00)
[2023-01-28] MEDS ORDERED: VANCOMYCIN INJ 1.5 GM in SODIUM CHLORIDE 0.9% 500 ML IV SCH (15:00)
[2023-01-28] MEDS: AMPICILLIN 2 GM in SODIUM CHLORIDE 0.9% MINIBAG 100 ML IV SCH (18:14)
[2023-01-28] MEDS ORDERED: ATORVASTATIN 40 MG TABLET PO SCH (21:00)
[2023-01-29] MEDS: AMPICILLIN 2 GM in SODIUM CHLORIDE 0.9% MINIBAG 100 ML IV SCH ×4 (00:10→18:06)
[2023-01-29] MEDS: SODIUM CHLORIDE FLUSH 0.9% 10 ML SYRINGE IVP SCH ×3 (00:16→18:08)
[2023-01-29] MEDS: ACETAMINOPHEN 325 MG TABLET PO PRN (01:13)
[2023-01-29 05:49] LABS: BASOPHILS % (AUTO) 0.3 %; EOSINOPHILS # (AUTO) 0.2 10^3/uL (0.0-0.7); EOSINOPHILS % (AUTO) 1.3 %; HCT - HEMATOCRIT 33.4 % (42.0-52.0); HGB - HEMOGLOBIN 10.7 g/dL (14.0-18.0); LYMPHOCYTES # (AUTO) 1.9 10^3/uL (1.5-3.5); LYMPHOCYTES % (AUTO) 16.2 %; MEAN CORPUSCULAR HEMOGLOBIN 29.2 pg (27.0-31.0); MEAN PLATELET VOLUME 9.7 fL (7.4-11.4); MONOCYTES # (AUTO) 1.5 10^3/uL (0.0-1.0); MONOCYTES % (AUTO) 12.9 %; NEUTROPHILS # (AUTO) 7.9 10^3/uL (1.5-6.6); NEUTROPHILS % (AUTO) 68.3 %; PLT - PLATELET COUNT 301 10^3/uL (130-450); RED BLOOD COUNT 3.67 10^6/uL (4.70-6.10); RED CELL DISTRIBUTION WIDTH 16.2 % (12.0-15.0); WHITE BLOOD COUNT 11.6 x10^3/uL (4.8-10.8)
[2023-01-29 06:03] LABS: ALBUMIN 2.2 g/dL (3.2-5.5); BILIRUBIN,DIRECT 0.4 mg/dL (0.1-0.5); BILIRUBIN,TOTAL 1.1 mg/dL (0.2-1.0); TOTAL PROTEIN 6.2 g/dL (6.7-8.2)
[2023-01-29] MEDS: OMEGA-3 ACID ETHYL ESTERS 1 GM CAPSULE PO SCH (08:01)
[2023-01-29] MEDS: METOPROLOL SUCCINATE 50 MG TABLET PO SCH ×2 (08:01→22:08)
[2023-01-29] MEDS: FUROSEMIDE 40 MG TABLET PO SCH (08:01)
[2023-01-29] MEDS: ASPIRIN EC 81 MG TABLET PO SCH (08:01)
[2023-01-29] MEDS: SPIRONOLACTONE 25 MG TABLET PO SCH (08:01)
[2023-01-29] MEDS: LOSARTAN 50 MG TABLET PO SCH (08:01)
[2023-01-29] MEDS: APIXABAN 5 MG TABLET PO SCH ×2 (08:01→22:08)
[2023-01-29] MEDS: GABAPENTIN 300 MG CAPSULE PO SCH (08:01)
[2023-01-29] MEDS: MULTIVITAMIN W/MINERALS TABLET PO SCH (08:36)
[2023-01-29] MEDS: MEDIHONEY TOP SCH (14:04)
--- NOTE | 2023-01-29 17:59 | PROVIDER PROGRESS NOTE ---
Assessment/Plan - Problem List (1) Open wound of right lower leg with complication Assessment/Plan: He presented with a line of skin breakdown where the lower edge of the RILEY hose was compressing his skin, circumferential around his R ankle. It had developed 2 days before admission. By the time I saw him at admission, it was draining copious yellow pus. Wound it infrastructure consultant Dr Stark saw him, advised dressings with Medihoney, antibx and W/U for PVD. Thet arterial US was abnormal showing PVD (see #3). The patient thinks it is draining less each day. The nurse just placed honey and a dry dressing on it, and wrapped it. Plan: Continue dressing changes, iv antibx Await Strep sensitivities to tailor antibx as I transition him to po antibx Cont narcotics for pain when bearing weight, cont working with PT and OT. He was on a boat and has to climb a ladder plus some stairs which will be difficult with his leg and ankle pain. He very likely will need a SNF before returning home to his boat. Dr Stark wants to see him weekly [facility]. (2) Infection due to beta-hemolytic Streptococcus Assessment/Plan: The wound culture is growing beta-hemolytic group strep. I stopped IV vancomycin Plan: Cont IV ampicillin Await Strep sensitivities to tailor antibx as I transition him to po antibx (3) Cellulitis Qualifiers: Site of cellulitis: extremity Site of cellulitis of extremity: lower extremity Laterality: right Qualified Code(s): L03.115 - Cellulitis of right lower limb Assessment/Plan: The source appears to be the circumferential linear wound of the R ankle that was draining yellow pus. The entire right leg is red and the patient describes pain when bearing weight on the right leg. Blood cx are neg to date Plan: Await wound culture sensitivities Continue with IV antibiotics Cont probiotics Cont prn pain meds Qualifiers: Site of cellulitis: extremity Site of cellulitis of extremity: lower extremity Laterality: right Qualified Code(s): L03.115 - Cellulitis of right lower limb (4) PVD (peripheral vascular disease) Assessment/Plan: Arterial Doppler ultrasound of the right leg was done and showed several areas with severe atherosclerotic stenosis. I checked his fasting lipids and his LDL is already <70 but we want a high HDL >45, and his HDL was low at 28 (all labs were reviewed). Plan: Cont 1 baby aspirin daily Cont [place]-3 to increase HDL This PVD will impede his wound healing. He will need further outpatient work-up and management with a vascular specialist going forward, which I discussed with him on 01/28 (5) Atrial fibrillation Conclusion/Plan: Two weeks ago, Afib was a new finding for him and he was started on beta-duane and Eliquis. He has been compliant with both meds. The heart rate at rest is under control I changed Metoprolol Tartrate to Succinate for even better HR control I checked his TSH and is is WNL Plan: Continue with Toprol Continue his Eliquis dose Monitor rhythm on telemetry during PT to assure rate control Qualifiers: Atrial fibrillation type: unspecified chronic Qualified Code(s): I48.20 - Chronic atrial fibrillation, unspecified; I48.2 - Chronic atrial fibrillation (6) Chronic systolic CHF (congestive heart failure) Conclusion/Plan: Two weeks ago when he presented to the ER in [facility], he c/o leg edema and pulmonary edema was seen on chest x-ray. He was put on oral Lasix. An outpatient Echo was planned. He had not yet seen his PCP to have that Echo ordered & done. Two weeks ago he had troponins done x2 which were normal at 30 and 34. His Echocardiogram was done at admission 01/27 which showed mildly depressed LV systolic failure and RV systolic failure. These were likely caused by having rapid A-fib, for unknown duration. Troponins x2 again were unremarkable at admission now. BNP at admission was 724>> 996 >> 680 today (back on resumed meds) His admission CXR yesterday showed no pulm edema. I started him on Spironolactone and LEWIS inhibitor, continued a beta-duane, and ordered a low salt diet. I held his Lasix for a day, given the admission contraction alkalosis on labs (CO2 39), and admission prerenal azotemia on labs (BUN/creat 21/0.9) (all labs were reviewed) Plan: Continue Toprol, Losartan, Spironolactone and the resumed Lasix Follow his daily weight, I's and O's, electrolytes and magnesium daily, replace if low (7) Hypokalemia Conclusion/Plan: All labs were reviewed. His K was 2.2. at admission, likely from being on diuretics for 2-week Since K was <2.5, he is at risk of arrhythmias, he was admitted and placed on telemetry. K replacement was ordered. Today K is 4 Plan: Cont to monitor for dysrhythmias on telemetry Replace potassium if needed monitoring BMP daily. (8) Hypertension Conclusion/Plan: He was running blood pressures around 150 systolic/100-110 diastolic at admission. I started him on Lisinopril and Spironolactone and continued a beta-duane, for systolic heart failure management, as well as for blood pressure control Low-salt diet ordered. Plan: Continue Toprol, Losartan, Spironolactone and the resumed Lasix and low-salt diet. Qualifiers: Hypertension type: unspecified Qualified Code(s): I10 - Essential (primary) hypertension (9) Elevated bilirubin Conclusion/Plan: I re-questioned him, and the patient denied alcohol use or abuse. He said he did not notice being jaundiced. He denies any history of gallbladder problems or cancer with liver mets. On admission labs, he had a mildly elevated AST, alk phos and bili elevated at 2.3. 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 The details are that a Urologist in [place] saw him once and told him his prostate is very hard, and possibly cancerous. Patient responded that he did not want surgery. No other management was ever ordered for him such as prostate biopsy, seeds or chemo, or even tamsulosin or finasteride. He has been self cathing for 2 years. Plan: I will order that patient can self cath himself as needed, put supplies in room. Patient has an appointment with his PCP next week and I will urge that he has a Urology referral - Current Meds Current Meds: Current Medications Generic Name Dose Route Start Last Admin Trade Name Freq PRN Reason Stop Dose Admin Acetaminophen 650 mg 01/27/23 13:44 01/29/23 01:13 Acetaminophen 325 Mg Tablet PO 650 mg Q4HR PRN Administration Pain 1 to 4, or Fever Apixaban 5 mg 01/27/23 21:00 01/29/23 08:01 Apixaban 5 Mg Tablet PO 5 mg BID JOSE Administration Aspirin 81 mg 01/29/23 09:00 01/29/23 08:01 Aspirin Ec 81 Mg Tablet PO 81 mg DAILY JOSE Administration Furosemide 40 mg 01/28/23 09:00 01/29/23 08:01 Furosemide 40 Mg Tablet PO 40 mg DAILY JOSE Administration Gabapentin 900 mg 01/28/23 09:00 01/29/23 08:01 Gabapentin 300 Mg Capsule PO 900 mg DAILY JOSE Administration Ampicillin Sodium 2 gm/ Sodium 100 mls @ 100 mls/hr 01/28/23 18:00 01/29/23 12:33 Chloride IV 01/29/23 23:59 Infused Q6HR JOSE Infusion Losartan Potassium 50 mg 01/28/23 09:00 01/29/23 08:01 Losartan 50 Mg Tablet PO 50 mg DAILY JOSE Administration Metoprolol Succinate 50 mg 01/27/23 21:00 01/29/23 08:01 Metoprolol Succinate 50 Mg Tablet PO 50 mg BID JOSE Administration Multi-Ingredient Gel 1 ml 01/29/23 13:57 01/29/23 14:04 [facility] 44 Ml Tube TOP Not Given UD JOSE Multivitamins/Minerals 1 tab 01/29/23 08:00 01/29/23 08:36 Multivitamin W/Minerals Tablet PO 1 tab DAILYWM JOSE Administration [id number] Ethyl Esters 1 gm 01/29/23 09:00 01/29/23 08:01 [place]-3 Acid Ethyl Esters 1 Gm Capsule PO 1 gm DAILY JOSE Administration Sodium Chloride 10 ml 01/27/23 17:00 01/29/23 08:01 Sodium Chloride Flush 0.9% 10 Ml Syringe IVP 10 ml 0100,0900,1700 JOSE Administration Spironolactone 25 mg 01/28/23 09:00 01/29/23 08:01 Spironolactone 25 Mg Tablet PO 25 mg DAILY JOSE Administration - Lab Result Fish Bone Diagrams: 01/29/23 04:46 01/29/23 04:46 - Additional Planning My Orders: My Active Orders 01/28/23 18:00 Ampicillin [Ampicillin Sodium] 2 gm Sodium Chloride 0.9% Minibag [Normal Saline 0.9% Minibag] 100 ml IV Q6HR 01/29/23 08:00 Multivitamin W/Minerals [Theragran M] 1 tab PO DAILYWM 01/29/23 09:00 Aspirin EC [Ecotrin] 81 mg PO DAILY [place]-3 Acid Ethyl Esters [Lovaza] 1 gm PO DAILY 01/29/23 Lunch Low Sodium Diet [DIET] 01/29/23 13:56 [facility]ellaenous [facility] 01/29/23 13:57 Medihoney 1 ml TOP 01/30/23 05:00 BMP - BASIC METABOLIC PANEL [CHEM] DAILYLAB CBC - COMP BLD CT W/AUTO DIFF [HEME] DAILYLAB LIVER PANEL [CHEM] DAILYLAB MAGNESIUM [CHEM] DAILYLAB Subjective - Subjective Patient Reports: Feeling Better (Review. Was able to walk with partial weightbearing on the right leg and foot when he worked with PT) Objective Vital Signs: Vital Signs - 24 hr 01/28/23 01/29/23 01/29/23 21:00 00:14 04:53 Temperature 36.5 C 36.9 C 36.9 C Heart Rate [ 96 101 H 103 H Brachial] Respiratory 20 18 16 Rate Blood Pressure 96/61 130/75 124/73 [Right Brachial artery] O2 Saturation 96 95 96 01/29/23 01/29/23 01/29/23 08:04 12:08 17:00 Temperature 37.0 C 37.0 C 37.5 C Heart Rate [ 65 99 110 H Brachial] Respiratory 18 18 16 Rate Blood Pressure 130/95 H 97/66 128/87 H [Right Brachial artery] O2 Saturation 95 96 97 Oxygen O2 Source Room air I&O (Last 24 Hrs): Intake and Output Totals x24h 01/27/23 01/28/23 01/29/23 23:59 23:59 23:59 Intake Total 1476.25 1950 1120 Output Total 600 2800 1850 Balance 876.25 850 -730 General: Alert, Oriented x3 HEENT: Mucous membr. moist/pink Neck: Supple, No JVD Neuro: Alert, Non Focal Cardiovascular: No murmurs Respiratory: No respiratory distress, Breath sounds nml Abdomen: Soft, No tenderness Extremities: Other (1+ edemaof legs. The right leg is bandaged from the knee all the way down to the toes) - Results Results: Laboratory Results WBC 11.6 x10^3/uL (4.8-10.8) H 01/29/23 04:46 RBC 3.67 10^6/uL (4.70-6.10) L 01/29/23 04:46 Hgb 10.7 g/dL (14.0-18.0) L 01/29/23 04:46 Hct 33.4 % (42.0-52.0) L 01/29/23 04:46 MCV 91.0 fL (80.0-94.0) 01/29/23 04:46 MCH 29.2 pg (27.0-31.0) 01/29/23 04:46 MCHC 32.0 g/dL (32.0-36.0) 01/29/23 04:46 RDW 16.2 % (12.0-15.0) H 01/29/23 04:46 Plt Count 301 10^3/uL (130-450) 01/29/23 04:46 MPV 9.7 fL (7.4-11.4) 01/29/23 04:46 Neut # (Auto) 7.9 10^3/uL (1.5-6.6) H 01/29/23 04:46 Lymph # (Auto) 1.9 10^3/uL (1.5-3.5) 01/29/23 04:46 [place] # (Auto) 1.5 10^3/uL (0.0-1.0) H 01/29/23 04:46 Eos # (Auto) 0.2 10^3/uL (0.0-0.7) 01/29/23 04:46 Baso # (Auto) 0.0 10^3/uL (0.0-0.1) 01/29/23 04:46 Absolute Nucleated RBC 0.00 x10^3/uL 01/29/23 04:46 Band Neuts % (Manual) Not Reportable 01/27/23 10:09 Abnorm Lymph % (Manual) Not Reportable 01/27/23 10:09 Nucleated RBC % 0.0 /100WBC 01/29/23 04:46 Neutrophils # (Manual) Not Reportable 01/27/23 10:09 Lymphocytes # (Manual) Not Reportable 01/27/23 10:09 Monocytes # (Manual) Not Reportable 01/27/23 10:09 Eosinophils # (Manual) Not Reportable 01/27/23 10:09 Basophils # (Manual) Not Reportable 01/27/23 10:09 Differential Comment MANUAL=AUTO DIFF 01/27/23 10:09 Manual Slide Review Indicated 01/27/23 10:09 WBC Morphology NORMAL APPEARANCE (NORMAL) 01/27/23 10:09 Platelet Estimate NORMAL (130-450,000) (NORMAL) 01/27/23 10:09 Platelet Morphology NORMAL APPEARANCE (NORMAL) 01/27/23 10:09 RBC Morph Micro Appear 1+ ANISOCYTOSIS (NORMAL) 1+ TARGET CELLS (NORMAL) 01/27/23 10:09 RBC Morph Micro Appear 1+ ANISOCYTOSIS (NORMAL) 1+ TARGET CELLS (NORMAL) 01/27/23 10:09 ESR 14 mm/Hr (0-20) 01/27/23 10:09 Sodium 139 mmol/L (135-145) 01/29/23 04:46 Potassium 4.0 mmol/L (3.5-5.0) 01/29/23 04:46 Chloride 99 mmol/L (101-111) L 01/29/23 04:46 Carbon Dioxide 33 mmol/L (21-32) H 01/29/23 04:46 Anion Gap 7.0 (6-13) 01/29/23 04:46 BUN 20 mg/dL (6-20) 01/29/23 04:46 Creatinine 1.0 mg/dL (0.6-1.2) 01/29/23 04:46 Estimated GFR (MDRD) 72 (>89) L 01/29/23 04:46 Glucose 109 mg/dL (70-100) H 01/29/23 04:46 Lactic Acid 1.4 mmol/L (0.5-2.2) 01/27/23 10:09 Calcium 8.0 mg/dL (8.5-10.3) L 01/29/23 04:46 Magnesium 2.0 mg/dL (1.7-2.8) 01/29/23 04:46 Total Bilirubin 1.1 mg/dL (0.2-1.0) H 01/29/23 04:46 Direct Bilirubin 0.4 mg/dL (0.1-0.5) 01/29/23 04:46 AST 38 IU/L (10-42) 01/29/23 04:46 ALT 37 IU/L (10-60) 01/29/23 04:46 Alkaline Phosphatase 154 IU/L (42-121) H 01/29/23 04:46 Troponin I High Sens 29.1 ng/L (2.3-19.7) H* 01/27/23 17:09 B-Natriuretic Peptide 680 pg/mL (5-100) H 01/29/23 04:46 Total Protein 6.2 g/dL (6.7-8.2) L 01/29/23 04:46 Albumin 2.2 g/dL (3.2-5.5) L 01/29/23 04:46 Globulin 4.0 g/dL (2.1-4.2) 01/29/23 04:46 Albumin/Globulin Ratio 0.6 (1.0-2.2) L 01/27/23 10:09 Triglycerides 56 mg/dL (-149) 01/28/23 05:57 Cholesterol 104 mg/dL (-199) 01/28/23 05:57 LDL Cholesterol, Calc 65 mg/dL (-129) 01/28/23 05:57 VLDL Cholesterol 11 mg/dL 01/28/23 05:57 HDL Cholesterol 28 mg/dL (60-) L 01/28/23 05:57 LDL/HDL Ratio 2.3 (<3.6) 01/28/23 05:57 Cholesterol/HDL Ratio 3.7 (<5.0) 01/28/23 05:57 Lipase 43 U/L (22-51) 01/27/23 10:09 TSH 2.65 uIU/mL (0.34-5.60) 01/29/23 04:46
[2023-01-29] MEDS: HYDROcod/ACETAM 5/325 MG TABLET PO PRN (18:52)
[2023-01-30] MEDS: SODIUM CHLORIDE FLUSH 0.9% 10 ML SYRINGE IVP SCH ×3 (01:30→16:23)
[2023-01-30 04:57] LABS: BASOPHILS # (AUTO) 0.1 10^3/uL (0.0-0.1); BASOPHILS % (AUTO) 0.5 %; EOSINOPHILS # (AUTO) 0.1 10^3/uL (0.0-0.7); EOSINOPHILS % (AUTO) 0.9 %; HCT - HEMATOCRIT 35.5 % (42.0-52.0); HGB - HEMOGLOBIN 11.1 g/dL (14.0-18.0); LYMPHOCYTES # (AUTO) 2.3 10^3/uL (1.5-3.5); LYMPHOCYTES % (AUTO) 17.3 %; MEAN CORPUSCULAR HEMOGLOBIN 28.8 pg (27.0-31.0); MEAN CORPUSCULAR HGB CONC 31.3 g/dL (32.0-36.0); MEAN PLATELET VOLUME 9.7 fL (7.4-11.4); MONOCYTES # (AUTO) 1.6 10^3/uL (0.0-1.0); MONOCYTES % (AUTO) 12.4 %; NEUTROPHILS # (AUTO) 8.9 10^3/uL (1.5-6.6); NEUTROPHILS % (AUTO) 67.8 %; PLT - PLATELET COUNT 367 10^3/uL (130-450); RED BLOOD COUNT 3.86 10^6/uL (4.70-6.10); RED CELL DISTRIBUTION WIDTH 16.4 % (12.0-15.0); WHITE BLOOD COUNT 13.1 x10^3/uL (4.8-10.8)
[2023-01-30 05:15] LABS: ALBUMIN 2.3 g/dL (3.2-5.5); BILIRUBIN,DIRECT 0.4 mg/dL (0.1-0.5); BILIRUBIN,TOTAL 1.1 mg/dL (0.2-1.0); CALCIUM 8.2 mg/dL (8.5-10.3); CREATININE 0.9 mg/dL (0.6-1.2); MAGNESIUM 1.9 mg/dL (1.7-2.8); POTASSIUM 4.2 mmol/L (3.5-5.0); TOTAL PROTEIN 6.4 g/dL (6.7-8.2)
[2023-01-30 05:40] LABS: DIFFERENTIAL COMMENT MANUAL=AUTO DIFF; PLATELET ESTIMATE, MANUAL NORMAL (130-450,000) (NORMAL); RBC MORPHOLOGY (MULTIPLE) NORMAL APPEARANCE (NORMAL)
[2023-01-30] MEDS: ASPIRIN EC 81 MG TABLET PO SCH (09:18)
[2023-01-30] MEDS: GABAPENTIN 300 MG CAPSULE PO SCH (09:18)
[2023-01-30] MEDS: FUROSEMIDE 40 MG TABLET PO SCH (09:18)
[2023-01-30] MEDS: APIXABAN 5 MG TABLET PO SCH ×2 (09:18→21:32)
[2023-01-30] MEDS: LOSARTAN 50 MG TABLET PO SCH (09:18)
[2023-01-30] MEDS: METOPROLOL SUCCINATE 50 MG TABLET PO SCH ×2 (09:18→21:32)
[2023-01-30] MEDS: AMOX/CLAV 875 MG/125 MG TABLET PO SCH ×2 (09:18→21:32)
[2023-01-30] MEDS: MULTIVITAMIN W/MINERALS TABLET PO SCH (09:18)
[2023-01-30] MEDS: OMEGA-3 ACID ETHYL ESTERS 1 GM CAPSULE PO SCH (09:18)
[2023-01-30] MEDS: SPIRONOLACTONE 25 MG TABLET PO SCH (09:18)
[2023-01-30] MEDS: MEDIHONEY TOP SCH (10:54)
--- NOTE | 2023-01-30 13:06 | PROVIDER PROGRESS NOTE ---
Assessment/Plan - Problem List (1) Open wound of right lower leg with complication Assessment/Plan: He presented with a line of skin breakdown where the lower edge of the RILEY hose was compressing his skin, nearly circumferential around his R ankle. It had developed 2 days before admission. At admission, it was draining copious yellow pus. He was started on iv antibx. Wound functional consultant Dr Stark saw him, advised dressings q3days with Medihoney and Meplex, antibx and W/U for PVD. That arterial US was abnormal showing PVD (see #3). WBC has only slightly improved, was 15 at admission >> 10>> 11>> 13 today (all labs were reviewed). Today, the round ankle wound anteriorly has a wet purulent base (was dry p reviously), and the circumferential wound is widening, and base of wound appears yellow and necrotic with red edges. It is tender. Plan: Continue dressing changes, antibx Cont narcotics for pain when bearing weight, cont working with PT and OT. He was on a boat and has to climb a ladder plus some stairs which will be difficult with his leg and ankle pain. He very likely will need a PT and OT rehab before returning home to his boat. I will update Dr Stark for possible debridement now of the [address] Stark wants to see him weekly [facility], next appt 02/01. Follow CBC daily. (2) Infection due to beta-hemolytic Streptococcus Assessment/Plan: The wound culture is growing beta-hemolytic group strep. I stopped IV vancomycin and started iv Ampicillin then changed to po Augmentin. WBC has only slightly improved, WBC was 15 at admission >> 10>> 11>> 13 today (all labs were reviewed). Plan: Cont po antibx Follow CBC daily (3) Cellulitis Qualifiers: Site of cellulitis: extremity Site of cellulitis of extremity: lower extremity Laterality: right Qualified Code(s): L03.115 - Cellulitis of right lower limb Assessment/Plan: Improved The source appears to be the circumferential linear wound of the R ankle that was draining yellow pus. The entire right leg was red at admission. Today the redness is from ankle to below the R knee Blood cx are neg to date Plan: Continue with antibiotics and probiotics Cont prn pain meds Qualifiers: Site of cellulitis: extremity Site of cellulitis of extremity: lower extremity Laterality: right Qualified Code(s): L03.115 - Cellulitis of right lower limb (4) PVD (peripheral vascular disease) Assessment/Plan: Arterial Doppler ultrasound of the right leg was done and showed several areas with severe atherosclerotic stenosis. I checked his fasting lipids and his LDL is already <70 but we want a high HDL >45, and his HDL was low at 28 (all labs were reviewed). Plan: Cont 1 baby aspirin daily Cont [place]-3 to increase HDL This PVD will impede his wound healing. He will need further outpatient work-up and management with a vascular specialist going forward, which I discussed with him on 01/28 (5) Atrial fibrillation Conclusion/Plan: Two weeks ago, Afib was a new finding for him and he was started on beta-duane and Eliquis. He has been compliant with both meds. The heart rate at rest is under control I changed Metoprolol Tartrate to Succinate for even better HR control I checked his TSH and is is WNL Plan: Continue with Toprol and Eliquis Will stop Telemetry Qualifiers: Atrial fibrillation type: unspecified chronic Qualified Code(s): I48.20 - Chronic atrial fibrillation, unspecified; I48.2 - Chronic atrial fibrillation (6) Chronic systolic CHF (congestive heart failure) Conclusion/Plan: Two weeks ago when he presented to the ER in [facility], he c/o leg edema and pulmonary edema was seen on chest x-ray. He was put on oral Lasix. An outpatient Echo was planned. He had not yet seen his PCP to have that Echo ordered & done. Two weeks ago he had troponins done x2 which were normal at 30 and 34. His Echocardiogram was done at admission 01/27 which showed mildly depressed LV systolic failure and RV systolic failure. These were likely caused by having rapid A-fib, for unknown duration. Troponins x2 again were unremarkable at admission now. BNP at admission was 724>> 996 >> 680 (back on resumed meds) His admission CXR yesterday showed no pulm edema. I started him on Spironolactone and LEWIS inhibitor, continued a beta-duane, and ordered a low salt diet. I held his Lasix for a day, given the admission contraction alkalosis on labs (C O2 39), and admission prerenal azotemia on labs (BUN/creat 21/0.9) (all labs were reviewed) Plan: Continue Toprol, Losartan, Spironolactone and Lasix Follow his daily weight, I's and O's, electrolytes and magnesium daily, replace if low (7) Hypertension Conclusion/Plan: He was running blood pressures around 150 systolic/100-110 diastolic at admission. I started him on Lisinopril and Spironolactone and continued a beta-duane, for systolic heart failure management, as well as for blood pressure control Low-salt diet ordered. Plan: Continue Toprol, Losartan, Spironolactone and Lasix and low-salt diet. Qualifiers: Hypertension type: unspecified Qualified Code(s): I10 - Essential (primary) hypertension (8) Elevated bilirubin Conclusion/Plan: I re-questioned him, and the patient denied alcohol use or abuse. He said he did not notice being jaundiced. He denies any history of gallbladder problems or cancer with liver mets. On admission labs, he had a mildly elevated AST, alk phos and bili elevated at 2.3. 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 The details are that a Urologist in [place] saw him once and told him his prostate is very hard, and possibly cancerous. Patient responded that he did not want surgery. No other management was ever ordered for him such as prostate biopsy, seeds or chemo, or even tamsulosin or finasteride. He has been self cathing for 2 years. Plan: I ordered that patient can self cath himself as needed, put supplies in room. Patient has an appointment with his PCP next week and I will urge that he has a Urology referral (10) Hypokalemia Conclusion/Plan: IMPROVED All labs were reviewed. His K was 2.2. at admission, likely from being on diuretics for 2-week Since K was <2.5, he was at risk of arrhythmias, he was admitted and placed on telemetry. K replacement was ordered. Today K is 4.2 Plan: Will follow BMP intermittently - Current Meds Current Meds: Current Medications Generic Name Dose Route Start Last Admin Trade Name Candis PRN Reason Stop Dose Admin Acetaminophen 650 mg 01/27/23 13:44 01/29/23 01:13 Acetaminophen 325 Mg Tablet PO 650 mg Q4HR PRN Administration Pain 1 to 4, or Fever Hydrocodone Bitart/Acetaminophen 1 tab 01/28/23 12:35 01/29/23 18:52 Hydrocod/Acetam 5/325 Mg Tablet PO 1 tab Q4HR PRN Administration Moderate Pain (Level 4-6) Amoxicillin/Clavulanate Potassium 1 tab 01/30/23 08:00 01/30/23 09:18 Amox/Clav 875 Mg/125 Mg Tablet PO 1 tab BID@0800,2100 JOSE Administration Apixaban 5 mg 01/27/23 21:00 01/30/23 09:18 Apixaban 5 Mg Tablet PO 5 mg BID JOSE Administration Aspirin 81 mg 01/29/23 09:00 01/30/23 09:18 Aspirin Ec 81 Mg Tablet PO 81 mg DAILY JOSE Administration Furosemide 40 mg 01/28/23 09:00 01/30/23 09:18 Furosemide 40 Mg Tablet PO 40 mg DAILY JOSE Administration Gabapentin 900 mg 01/28/23 09:00 01/30/23 09:18 Gabapentin 300 Mg Capsule PO 900 mg DAILY JOSE Administration Losartan Potassium 50 mg 01/28/23 09:00 01/30/23 09:18 Losartan 50 Mg Tablet PO 50 mg DAILY JOSE Administration Metoprolol Succinate 50 mg 01/27/23 21:00 01/30/23 09:18 Metoprolol Succinate 50 Mg Tablet PO 50 mg BID JOSE Administration Multi-Ingredient Gel 1 ml 01/29/23 13:57 01/30/23 10:54 [facility] 44 Ml Tube TOP 1 ml UD JOSE Administration Multivitamins/Minerals 1 tab 01/29/23 08:00 01/30/23 09:18 Multivitamin W/Minerals Tablet PO 1 tab DAILYWM JOSE Administration [id number] Ethyl Esters 1 gm 01/29/23 09:00 01/30/23 09:18 [place]-3 Acid Ethyl Esters 1 Gm Capsule PO 1 gm DAILY JOSE Administration Sodium Chloride 10 ml 01/27/23 13:44 01/29/23 19:12 Sodium Chloride Flush 0.9% 10 Ml Syringe IVP 10 ml PRN PRN Administration NEEDED PER PROVIDER ORDERS Sodium Chloride 10 ml 01/27/23 17:00 01/30/23 10:16 Sodium Chloride Flush 0.9% 10 Ml Syringe IVP 10 ml 0100,0900,1700 JOSE Administration Spironolactone 25 mg 01/28/23 09:00 01/30/23 09:18 Spironolactone 25 Mg Tablet PO 25 mg DAILY JOSE Administration - Lab Result Fish Bone Diagrams: 01/30/23 04:13 01/30/23 04:13 - Additional Planning My Orders: My Active Orders 01/29/23 13:56 Miscellaenous Nursing Order [RC] QSHIFT 01/29/23 13:57 Medihoney 1 ml TOP UD 01/30/23 08:00 Amox/Clav 875/125 [Augmentin 875/125 Tab] 1 tab PO BID@0800,2100 Objective Vital Signs: Vital Signs - 24 hr 01/29/23 01/29/23 01/29/23 17:00 19:39 23:02 Temperature 37.5 C 37.2 C 37.1 C Heart Rate [ 110 H 96 92 Brachial] Respiratory 16 18 16 Rate Blood Pressure 128/87 H 115/75 87/53 L [Right Brachial artery] O2 Saturation 97 93 95 01/30/23 01/30/23 01/30/23 00:01 04:10 08:17 Temperature 37.3 C 36.9 C Heart Rate [ 97 94 106 H Brachial] Respiratory 18 18 Rate Blood Pressure 102/60 107/81 H 125/77 [Right Brachial artery] O2 Saturation 95 97 01/30/23 12:00 Temperature 37.4 C Heart Rate [ 103 H Brachial] Respiratory 18 Rate Blood Pressure 100/71 [Right Brachial artery] O2 Saturation 96 Oxygen O2 Source Room air I&O (Last 24 Hrs): Intake and Output Totals x24h 01/28/23 01/29/23 01/30/23 23:59 23:59 23:59 Intake Total 1950 1580 880 Output Total 2800 2150 1600 Balance -296 -867 -142 - Results Results: Laboratory Results WBC 13.1 x10^3/uL (4.8-10.8) H 01/30/23 04:13 RBC 3.86 10^6/uL (4.70-6.10) L 01/30/23 04:13 Hgb 11.1 g/dL (14.0-18.0) L 01/30/23 04:13 Hct 35.5 % (42.0-52.0) L 01/30/23 04:13 MCV 92.0 fL (80.0-94.0) 01/30/23 04:13 MCH 28.8 pg (27.0-31.0) 01/30/23 04:13 MCHC 31.3 g/dL (32.0-36.0) L 01/30/23 04:13 RDW 16.4 % (12.0-15.0) H 01/30/23 04:13 Plt Count 367 10^3/uL (130-450) 01/30/23 04:13 MPV 9.7 fL (7.4-11.4) 01/30/23 04:13 Neut # (Auto) 8.9 10^3/uL (1.5-6.6) H 01/30/23 04:13 Lymph # (Auto) 2.3 10^3/uL (1.5-3.5) 01/30/23 04:13 [place] # (Auto) 1.6 10^3/uL (0.0-1.0) H 01/30/23 04:13 Eos # (Auto) 0.1 10^3/uL (0.0-0.7) 01/30/23 04:13 Baso # (Auto) 0.1 10^3/uL (0.0-0.1) 01/30/23 04:13 Absolute Nucleated RBC 0.00 x10^3/uL 01/30/23 04:13 Band Neuts % (Manual) Not Reportable 01/30/23 04:13 Abnorm Lymph % (Manual) Not Reportable 01/30/23 04:13 Nucleated RBC % 0.0 /100WBC 01/30/23 04:13 Neutrophils # (Manual) Not Reportable 01/30/23 04:13 Lymphocytes # (Manual) Not Reportable 01/30/23 04:13 Monocytes # (Manual) Not Reportable 01/30/23 04:13 Eosinophils # (Manual) Not Reportable 01/30/23 04:13 Basophils # (Manual) Not Reportable 01/30/23 04:13 Differential Comment MANUAL=AUTO DIFF 01/30/23 04:13 Manual Slide Review Indicated 01/27/23 10:09 WBC Morphology NORMAL APPEARANCE (NORMAL) 01/27/23 10:09 Platelet Estimate NORMAL (130-450,000) (NORMAL) 01/30/23 04:13 Platelet Morphology NORMAL APPEARANCE (NORMAL) 01/27/23 10:09 RBC Morph Micro Appear NORMAL APPEARANCE (NORMAL) 01/30/23 04:13 ESR 14 mm/Hr (0-20) 01/27/23 10:09 Sodium 139 mmol/L (135-145) 01/30/23 04:13 Potassium 4.2 mmol/L (3.5-5.0) 01/30/23 04:13 Chloride 102 mmol/L (101-111) 01/30/23 04:13 Carbon Dioxide 31 mmol/L (21-32) 01/30/23 04:13 Anion Gap 6.0 (6-13) 01/30/23 04:13 BUN 19 mg/dL (6-20) 01/30/23 04:13 Creatinine 0.9 mg/dL (0.6-1.2) 01/30/23 04:13 Estimated GFR (MDRD) 81 (>89) L 01/30/23 04:13 Glucose 97 mg/dL (70-100) 01/30/23 04:13 Lactic Acid 1.4 mmol/L (0.5-2.2) 01/27/23 10:09 Calcium 8.2 mg/dL (8.5-10.3) L 01/30/23 04:13 Magnesium 1.9 mg/dL (1.7-2.8) 01/30/23 04:13 Total Bilirubin 1.1 mg/dL (0.2-1.0) H 01/30/23 04:13 Direct Bilirubin 0.4 mg/dL (0.1-0.5) 01/30/23 04:13 AST 45 IU/L (10-42) H 01/30/23 04:13 ALT 42 IU/L (10-60) 01/30/23 04:13 Alkaline Phosphatase 178 IU/L (42-121) H 01/30/23 04:13 Troponin I High Sens 29.1 ng/L (2.3-19.7) H* 01/27/23 17:09 B-Natriuretic Peptide 680 pg/mL (5-100) H 01/29/23 04:46 Total Protein 6.4 g/dL (6.7-8.2) L 01/30/23 04:13 Albumin 2.3 g/dL (3.2-5.5) L 01/30/23 04:13 Globulin 4.1 g/dL (2.1-4.2) 01/30/23 04:13 Albumin/Globulin Ratio 0.6 (1.0-2.2) L 01/27/23 10:09 Triglycerides 56 mg/dL (-149) 01/28/23 05:57 Cholesterol 104 mg/dL (-199) 01/28/23 05:57 LDL Cholesterol, Calc 65 mg/dL (-129) 01/28/23 05:57 VLDL Cholesterol 11 mg/dL 01/28/23 05:57 HDL Cholesterol 28 mg/dL (60-) L 01/28/23 05:57 LDL/HDL Ratio 2.3 (<3.6) 01/28/23 05:57 Cholesterol/HDL Ratio 3.7 (<5.0) 01/28/23 05:57 Lipase 43 U/L (22-51) 01/27/23 10:09 TSH 2.65 uIU/mL (0.34-5.60) 01/29/23 04:46
[2023-01-30] MEDS: HYDROcod/ACETAM 5/325 MG TABLET PO PRN (19:54)
[2023-01-31] MEDS: SODIUM CHLORIDE FLUSH 0.9% 10 ML SYRINGE IVP SCH ×3 (02:54→16:17)
--- NOTE | 2023-01-31 08:44 | PROVIDER PROGRESS NOTE ---
Assessment/Plan - Problem List (1) Open wound of right lower leg with complication Assessment/Plan: He presented with a line of skin breakdown where the lower edge of the RILEY hose was compressing his skin, nearly circumferential around his R ankle. It had developed 2 days before admission. At admission, it was draining copious yellow pus. He was started on iv antibx. Wound business management consultant Dr Stark saw him, advised dressing changes q3days with Medihoney and Meplex. He advised antibx and W/U for PVD. That arterial US was abnormal showing PVD (see #3). WBC was 15 at admission >> 10>> 11>> 13>> 10 today (all labs were reviewed). However, his ESR was 14 at admission and is 61 today. I viewed the wound yestetrday 01/30, during a q3d dressing change by nursing. The ankle wound anteriorly, was round, had a wet purulent base (was dry previously), and the circumferential wound on the posterior ankle was widening, and base of wound appeared yellow and necrotic with red edges. It was tender. Plan: Follow ESR and WBC Continue dressing changes, antibx Cont narcotics for pain when bearing weight, cont working with PT and OT. [place] and has to climb a ladder plus some stairs which will be difficult with his leg and ankle pain. He thinks he will manage w/ forearm crutches (which I can order) and help from [place] around [place]. Dr Stark wants to see him [facility], next appt is tomorrow 02/01. He possibly needs debridement of the 2 R ankle wounds. (2) Infection due to beta-hemolytic Streptococcus Assessment/Plan: The wound culture is growing beta-hemolytic group strep. I stopped IV vancomycin and started iv Ampicillin then changed to po Augmentin. WBC has improved but ESR samantha (see #1) Plan: Cont po antibx Follow ESR and WBC (3) Cellulitis Qualifiers: Site of cellulitis: extremity Site of cellulitis of extremity: lower ex tremity Laterality: right Qualified Code(s): L03.115 - Cellulitis of right lower limb Assessment/Plan: Improved The source appears to be the wound of the R ankle. The entire right leg was red at admission. Since yesterday 01/30, the redness is now from ankle to below the R knee Blood cx are neg to date Plan: Continue with antibiotics and probiotics Cont prn pain meds Qualifiers: Site of cellulitis: extremity Site of cellulitis of extremity: lower extremity Laterality: right Qualified Code(s): L03.115 - Cellulitis of right lower limb (4) PVD (peripheral vascular disease) Assessment/Plan: Arterial Doppler ultrasound of the right leg was done and showed several areas with severe atherosclerotic stenosis. I checked his fasting lipids and his LDL is already <70 but we want a high HDL >45, and his HDL was low at 28 (all labs were reviewed). Plan: Cont 1 baby aspirin daily Cont Aurora-3 to increase HDL This PVD will impede his wound healing. He will need further outpatient work-up and management with a vascular specialist going forward, which I discussed with him on 01/28 (5) Atrial fibrillation Conclusion/Plan: Two weeks ago, Afib was a new finding for him and he was started on beta-duane and Eliquis. He has been compliant with both meds. The heart rate at rest is under control I changed Metoprolol Tartrate to Succinate for even better HR control I checked his TSH and is is WNL Telemetry was stopped yesterday 01/30, due to HR control. Plan: Continue with Toprol and Eliquis Qualifiers: Atrial fibrillation type: unspecified chronic Qualified Code(s): I48.20 - Chronic atrial fibrillation, unspecified; I48.2 - Chronic atrial fibrillation (6) Chronic systolic CHF (congestive heart failure) Conclusion/Plan: Two weeks ago when he presented to the ER in [facility], he c/o leg edema and pulmonary edema was seen on chest x-ray. He was put on oral Lasix. An outpatient Echo was planned. He had not yet seen his PCP to have that Echo ordered & done. Two weeks ago he had troponins done x2 which were normal at 30 and 34. His Echocardiogram was done at admission 01/27 which showed mildly depressed LV systolic failure and RV systolic failure. These were likely caused by having rapid A-fib, for unknown duration. Troponins x2 again were unremarkable at admission now. BNP at admission was 724>> 996 >> 680 (back on resumed meds) His admission CXR yesterday showed no pulm edema. I started him on Spironolactone and LEWIS inhibitor, continued a beta-duane, and ordered a low salt diet. I held his Lasix for a day, given the admission contraction alkalosis on labs (CO2 39), and admission prerenal azotemia on labs (BUN/creat 21/0.9) (all labs were reviewed) Plan: Continue Toprol, Losartan, Spironolactone and Lasix Follow his daily weight, I's and O's, electrolytes and magnesium daily, replace if low (7) Hypertension Conclusion/Plan: He was running blood pressures around 150 systolic/100-110 diastolic at admission. I started him on Lisinopril and Spironolactone and continued a beta-duane, for systolic heart failure management, as well as for blood pressure control Low-salt diet ordered. Plan: Continue Toprol, Losartan, Spironolactone and Lasix and low-salt diet. Qualifiers: Hypertension type: unspecified Qualified Code(s): I10 - Essential (primary) hypertension (8) Elevated bilirubin Conclusion/Plan: I re-questioned him, and the patient denied alcohol use or abuse. He said he did not notice being jaundiced. He denies any history of gallbladder problems or cancer with liver mets. On admission labs, he had a mildly elevated AST, alk phos and bili elevated at 2.3. 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 The details are that a Urologist in [place] saw him once and told him his prostate is very hard, and possibly cancerous. Patient responded that he did not want surgery. No other management was ever ordered for him such as prostate biopsy, seeds or chemo, or even tamsulosin or finasteride. He has been self cathing for 2 years. Plan: I ordered that patient can self cath himself as needed, put supplies in room. Patient has an appointment with his PCP next week and I will urge that he has a Urology referral (10) Hypokalemia Conclusion/Plan: IMPROVED All labs were reviewed. His K was 2.2. at admission, likely from being on diuretics for 2-week Since K was <2.5, he was at risk of arrhythmias, he was admitted and placed on telemetry. K replacement was ordered. Today K is 4.2 Plan: Will follow BMP intermittently - Current Meds Current Meds: Current Medications Generic Name Dose Route Start Last Admin Trade Name Freq PRN Reason Stop Dose Admin Acetaminophen 650 mg 01/27/23 13:44 01/29/23 01:13 Acetaminophen 325 Mg Tablet PO 650 mg Q4HR PRN Administration Pain 1 to 4, or Fever Hydrocodone Bitart/Acetaminophen 1 tab 01/28/23 12:35 01/30/23 19:54 Hydrocod/Acetam 5/325 Mg Tablet PO 1 tab Q4HR PRN Administration Moderate Pain (Level 4-6) Amoxicillin/Clavulanate Potassium 1 tab 01/30/23 08:00 01/30/23 21:32 Amox/Clav 875 Mg/125 Mg Tablet PO 1 tab BID@0800,2100 JOSE Administration Apixaban 5 mg 01/27/23 21:00 01/30/23 21:32 Apixaban 5 Mg Tablet PO 5 mg BID JOSE Administration Aspirin 81 mg 01/29/23 09:00 01/30/23 09:18 Aspirin Ec 81 Mg Tablet PO 81 mg DAILY JOSE Administration Furosemide 40 mg 01/28/23 09:00 01/30/23 09:18 Furosemide 40 Mg Tablet PO 40 mg DAILY JOSE Administration Gabapentin 900 mg 01/28/23 09:00 01/30/23 09:18 Gabapentin 300 Mg Capsule PO 900 mg DAILY JOSE Administration Losartan Potassium 50 mg 01/28/23 09:00 01/30/23 09:18 Losartan 50 Mg Tablet PO 50 mg DAILY JOSE Administration Metoprolol Succinate 50 mg 01/27/23 21:00 01/30/23 21:32 Metoprolol Succinate 50 Mg Tablet PO 50 mg BID JOSE Administration Multi-Ingredient Gel 1 ml 01/29/23 13:57 01/30/23 10:54 [facility] 44 Ml Tube TOP 1 ml UD JOSE Administration Multivitamins/Minerals 1 tab 01/29/23 08:00 01/30/23 09:18 Multivitamin W/Minerals Tablet PO 1 tab DAILYWM JOSE Administration Egbod-5-Qbey Ethyl Esters 1 gm 01/29/23 09:00 01/30/23 09:18 Aurora-3 Acid Ethyl Esters 1 Gm Capsule PO 1 gm DAILY JOSE Administration Sodium Chloride 10 ml 01/27/23 13:44 01/29/23 19:12 Sodium Chloride Flush 0.9% 10 Ml Syringe IVP 10 ml PRN PRN Administration NEEDED PER PROVIDER ORDERS Sodium Chloride 10 ml 01/27/23 17:00 01/31/23 02:54 Sodium Chloride Flush 0.9% 10 Ml Syringe IVP 10 ml 0100,0900,1700 JOSE Administration Spironolactone 25 mg 01/28/23 09:00 01/30/23 09:18 Spironolactone 25 Mg Tablet PO 25 mg DAILY JOSE Administration - Lab Result Fish Bone Diagrams: 01/31/23 09:04 01/31/23 09:04 - Additional Planning My Orders: My Active Orders 01/30/23 08:00 Amox/Clav 875/125 [Augmentin 875/125 Tab] 1 tab PO BID@0800,2100 01/31/23 05:00 ESR- ERYTHROCYTE SEDIMENT RATE [HEME] Routine Subjective - Subjective Patient Reports: No Complaints (He is getting itching of his right leg below the knee therefore he thinks there is a healing. The right leg below the knee to the heel is bandaged today.) Objective Vital Signs: Vital Signs - 24 hr 01/30/23 01/30/23 01/30/23 12:00 16:22 20:01 Temperature 37.4 C 37.5 C 36.5 C Heart Rate [ 103 H 96 94 Brachial] Respiratory 18 20 20 Rate Blood Pressure 100/71 101/60 95/58 L [Right Brachial artery] O2 Saturation 96 96 96 01/31/23 01/31/23 01/31/23 00:28 05:00 08:40 Temperature 37.1 C 36.8 C 36.8 C Heart Rate [ 103 H 85 96 Brachial] Respiratory 18 18 18 Rate Blood Pressure 124/87 H 116/78 109/81 H [Right Brachial artery] O2 Saturation 95 95 96 Oxygen O2 Source Room air I&O (Last 24 Hrs): Intake and Output Totals x24h 01/29/23 01/30/23 01/31/23 23:59 23:59 23:59 Intake Total 1580 1470 300 Output Total 2150 2600 1500 Balance -570 -1130 -1200 General: Alert, Oriented x3 HEENT: Mucous membr. moist/pink Neck: Supple, No JVD Neuro: Alert, Non Focal Cardiovascular: No murmurs Respiratory: No respiratory distress, Breath sounds nml Abdomen: Normal bowel sounds, Soft, No tenderness Extremities: Other (Marked wrinkling of both shins, feet and toes. Mild redness of the right leg below the knee. The bandage was not removed (It is bandaged from below the knee down to and including the ankle and heel)) - Results Results: Laboratory Results WBC 13.1 x10^3/uL (4.8-10.8) H 01/30/23 04:13 RBC 3.86 10^6/uL (4.70-6.10) L 01/30/23 04:13 Hgb 11.1 g/dL (14.0-18.0) L 01/30/23 04:13 Hct 35.5 % (42.0-52.0) L 01/30/23 04:13 MCV 92.0 fL (80.0-94.0) 01/30/23 04:13 MCH 28.8 pg (27.0-31.0) 01/30/23 04:13 MCHC 31.3 g/dL (32.0-36.0) L 01/30/23 04:13 RDW 16.4 % (12.0-15.0) H 01/30/23 04:13 Plt Count 367 10^3/uL (130-450) 01/30/23 04:13 MPV 9.7 fL (7.4-11.4) 01/30/23 04:13 Neut # (Auto) 8.9 10^3/uL (1.5-6.6) H 01/30/23 04:13 Lymph # (Auto) 2.3 10^3/uL (1.5-3.5) 01/30/23 04:13 Island # (Auto) 1.6 10^3/uL (0.0-1.0) H 01/30/23 04:13 Eos # (Auto) 0.1 10^3/uL (0.0-0.7) 01/30/23 04:13 Baso # (Auto) 0.1 10^3/uL (0.0-0.1) 01/30/23 04:13 Absolute Nucleated RBC 0.00 x10^3/uL 01/30/23 04:13 Band Neuts % (Manual) Not Reportable 01/30/23 04:13 Abnorm Lymph % (Manual) Not Reportable 01/30/23 04:13 Nucleated RBC % 0.0 /100WBC 01/30/23 04:13 Neutrophils # (Manual) Not Reportable 01/30/23 04:13 Lymphocytes # (Manual) Not Reportable 01/30/23 04:13 Monocytes # (Manual) Not Reportable 01/30/23 04:13 Eosinophils # (Manual) Not Reportable 01/30/23 04:13 Basophils # (Manual) Not Reportable 01/30/23 04:13 Differential Comment MANUAL=AUTO DIFF 01/30/23 04:13 Manual Slide Review Indicated 01/27/23 10:09 WBC Morphology NORMAL APPEARANCE (NORMAL) 01/27/23 10:09 Platelet Estimate NORMAL (130-450,000) (NORMAL) 01/30/23 04:13 Platelet Morphology NORMAL APPEARANCE (NORMAL) 01/27/23 10:09 RBC Morph Micro Appear NORMAL APPEARANCE (NORMAL) 01/30/23 04:13 ESR 14 mm/Hr (0-20) 01/27/23 10:09 Sodium 139 mmol/L (135-145) 01/30/23 04:13 Potassium 4.2 mmol/L (3.5-5.0) 01/30/23 04:13 Chloride 102 mmol/L (101-111) 01/30/23 04:13 Carbon Dioxide 31 mmol/L (21-32) 01/30/23 04:13 Anion Gap 6.0 (6-13) 01/30/23 04:13 BUN 19 mg/dL (6-20) 01/30/23 04:13 Creatinine 0.9 mg/dL (0.6-1.2) 01/30/23 04:13 Estimated GFR (MDRD) 81 (>89) L 01/30/23 04:13 Glucose 97 mg/dL (70-100) 01/30/23 04:13 Lactic Acid 1.4 mmol/L (0.5-2.2) 01/27/23 10:09 Calcium 8.2 mg/dL (8.5-10.3) L 01/30/23 04:13 Magnesium 1.9 mg/dL (1.7-2.8) 01/30/23 04:13 Total Bilirubin 1.1 mg/dL (0.2-1.0) H 01/30/23 04:13 Direct Bilirubin 0.4 mg/dL (0.1-0.5) 01/30/23 04:13 AST 45 IU/L (10-42) H 01/30/23 04:13 ALT 42 IU/L (10-60) 01/30/23 04:13 Alkaline Phosphatase 178 IU/L (42-121) H 01/30/23 04:13 Troponin I High Sens 29.1 ng/L (2.3-19.7) H* 01/27/23 17:09 B-Natriuretic Peptide 680 pg/mL (5-100) H 01/29/23 04:46 Total Protein 6.4 g/dL (6.7-8.2) L 01/30/23 04:13 Albumin 2.3 g/dL (3.2-5.5) L 01/30/23 04:13 Globulin 4.1 g/dL (2.1-4.2) 01/30/23 04:13 Albumin/Globulin Ratio 0.6 (1.0-2.2) L 01/27/23 10:09 Triglycerides 56 mg/dL (-149) 01/28/23 05:57 Cholesterol 104 mg/dL (-199) 01/28/23 05:57 LDL Cholesterol, Calc 65 mg/dL (-129) 01/28/23 05:57 VLDL Cholesterol 11 mg/dL 01/28/23 05:57 HDL Cholesterol 28 mg/dL (60-) L 01/28/23 05:57 LDL/HDL Ratio 2.3 (<3.6) 01/28/23 05:57 Cholesterol/HDL Ratio 3.7 (<5.0) 01/28/23 05:57 Lipase 43 U/L (22-51) 01/27/23 10:09 TSH 2.65 uIU/mL (0.34-5.60) 01/29/23 04:46
[2023-01-31 09:09] LABS: BASOPHILS # (AUTO) 0.1 10^3/uL (0.0-0.1); BASOPHILS % (AUTO) 0.5 %; EOSINOPHILS # (AUTO) 0.1 10^3/uL (0.0-0.7); EOSINOPHILS % (AUTO) 1.1 %; HCT - HEMATOCRIT 34.2 % (42.0-52.0); LYMPHOCYTES # (AUTO) 1.4 10^3/uL (1.5-3.5); LYMPHOCYTES % (AUTO) 13.1 %; MEAN CORPUSCULAR HEMOGLOBIN 29.6 pg (27.0-31.0); MEAN CORPUSCULAR HGB CONC 32.2 g/dL (32.0-36.0); MEAN CORPUSCULAR VOLUME 91.9 fL (80.0-94.0); MONOCYTES # (AUTO) 1.3 10^3/uL (0.0-1.0); MONOCYTES % (AUTO) 12.4 %; NEUTROPHILS # (AUTO) 7.6 10^3/uL (1.5-6.6); NEUTROPHILS % (AUTO) 71.7 %; PLT - PLATELET COUNT 358 10^3/uL (130-450); RED BLOOD COUNT 3.72 10^6/uL (4.70-6.10); RED CELL DISTRIBUTION WIDTH 16.1 % (12.0-15.0); WHITE BLOOD COUNT 10.6 x10^3/uL (4.8-10.8)
[2023-01-31] MEDS: MULTIVITAMIN W/MINERALS TABLET PO SCH (09:12)
[2023-01-31] MEDS: FUROSEMIDE 40 MG TABLET PO SCH (09:12)
[2023-01-31] MEDS: METOPROLOL SUCCINATE 50 MG TABLET PO SCH ×2 (09:12→21:02)
[2023-01-31] MEDS: ASPIRIN EC 81 MG TABLET PO SCH (09:12)
[2023-01-31] MEDS: OMEGA-3 ACID ETHYL ESTERS 1 GM CAPSULE PO SCH (09:12)
[2023-01-31] MEDS: SPIRONOLACTONE 25 MG TABLET PO SCH (09:12)
[2023-01-31] MEDS: APIXABAN 5 MG TABLET PO SCH ×2 (09:12→21:00)
[2023-01-31] MEDS: AMOX/CLAV 875 MG/125 MG TABLET PO SCH ×2 (09:12→20:59)
[2023-01-31] MEDS: LOSARTAN 50 MG TABLET PO SCH (09:12)
[2023-01-31] MEDS: MEDIHONEY TOP SCH (09:13)
[2023-01-31] MEDS: GABAPENTIN 300 MG CAPSULE PO SCH (09:13)
[2023-01-31 09:16] LABS: CALCIUM 8.2 mg/dL (8.5-10.3); CREATININE 0.9 mg/dL (0.6-1.2); POTASSIUM 4.5 mmol/L (3.5-5.0)
[2023-01-31] MEDS ORDERED: LIDOCAINE 2% URO-JET 5 ML SYRINGE UR ONE (14:18)
[2023-01-31] MEDS: HYDROcod/ACETAM 5/325 MG TABLET PO PRN (19:41)
[2023-02-01] MEDS: SODIUM CHLORIDE FLUSH 0.9% 10 ML SYRINGE IVP SCH ×3 (04:48→17:10)
[2023-02-01] MEDS: HYDROcod/ACETAM 5/325 MG TABLET PO PRN ×3 (05:28→22:00)
[2023-02-01 05:31] LABS: BASOPHILS % (AUTO) 0.5 %; HGB - HEMOGLOBIN 11.3 g/dL (14.0-18.0); LYMPHOCYTES % (AUTO) 14.2 %; MEAN CORPUSCULAR HEMOGLOBIN 28.5 pg (27.0-31.0); MEAN CORPUSCULAR HGB CONC 30.5 g/dL (32.0-36.0); MEAN CORPUSCULAR VOLUME 93.4 fL (80.0-94.0); MEAN PLATELET VOLUME 9.4 fL (7.4-11.4); MONOCYTES % (AUTO) 12.9 %; NEUTROPHILS % (AUTO) 70.3 %; PLT - PLATELET COUNT 435 10^3/uL (130-450); RED BLOOD COUNT 3.96 10^6/uL (4.70-6.10); RED CELL DISTRIBUTION WIDTH 16.2 % (12.0-15.0); WHITE BLOOD COUNT 12.9 x10^3/uL (4.8-10.8)
[2023-02-01 05:37] LABS: ABNORMAL LYMPHS % (MANUAL) 0 %; BAND NEUTROPHILS % (MANUAL) 0 %
[2023-02-01 05:43] LABS: CALCIUM 8.6 mg/dL (8.5-10.3); POTASSIUM 5.6 mmol/L (3.5-5.0)
[2023-02-01 05:49] LABS: DIFFERENTIAL COMMENT MANUAL DIFFERENTIAL; LYMPHOCYTES # (MANUAL) 2.6 10^3/uL (1.5-3.5); LYMPHOCYTES % (MANUAL) 20 %; MONOCYTES # (MANUAL) 1.3 10^3/uL (0.0-1.0); PLATELET ESTIMATE, MANUAL NORMAL (130-450,000) (NORMAL); PLATELET MORPHOLOGY NORMAL APPEARANCE (NORMAL); RBC MORPHOLOGY (MULTIPLE) NORMAL APPEARANCE (NORMAL); WBC MORPHOLOGY (MULTIPLE) NORMAL APPEARANCE (NORMAL)
--- NOTE | 2023-02-01 08:02 | PROVIDER PROGRESS NOTE ---
Assessment/Plan - Problem List (1) Open wound of right lower leg with complication Assessment/Plan: He presented with a line of skin breakdown where the lower edge of the RILEY hose was compressing his skin, nearly circumferential, mostly posterior, around his R ankle. It had developed 2 days before admission. At admission, it was draining copious yellow pus. He was started on empiric iv antibx. Wound device sales consultant Dr Stark saw him that day, advised dressing changes q3days with Medihoney and Meplex. He advised antibx and W/U for PVD. That arterial US was abnormal showing PVD (see #3). All labs were reviewed. WBC was 15 at admission >> 10>> 11>> 13>> 10 >> 12.9 today. And his ESR was 14 at admission>> 61 yesterday>> 60 today. I viewed the wound on 01/30, during a q3d dressing change by nursing. The ankle wound anteriorly, was round, had a wet purulent base (was dry previously), and the circumferential wound on the posterior ankle was enlarging, appeared yellow and necrotic with red edges. It was tender. I spoke to Wound clinic nurse Romy, who saw him today (and she had discussed him with Dr Stark). His posterior R ankle wound was unwrapped and looks worse. A new culture was taken. It could not be debrided due to severe pain. Dr Stark advised W/U for osteomyelitis. Plan: Repeat wound cx was taken today at the Wound Clinic appt, await those results Because his WBC and ESR have not improved, I will stop oral antibx and resume iv antibx, using Rocephin 2 gm daily Will order XRays of R ankle to eval for osteo, as advised by Dr Stark. He may also need R ankle MRI. Follow ESR and WBC Continue dressing changes as rec by Wound clinic Cont narcotics for pain. [place] and has to climb a ladder plus some stairs, which will be difficult with his leg and ankle pain. He thinks he will manage using forearm crutches (which I would be able to order if not available in our PT dept) and thinks he will get help from [place] PT wants to check his mobility with forearm crutches before he is [facility]. (2) Infection due to beta-hemolytic Streptococcus Assessment/Plan: The wound culture grew beta-hemolytic Strep. His iv Vanco was then changed to iv Ampicillin, which was changed to po Augmentin when the redness of his leg cellulitis got better. WBC has been fluctuating but ESR samantha (see #1) Plan: Repeat wound cx was taken today at the Wound Clinic appt, await those results Will stop oral antibx and resume iv antibx, using Rocephin 2 gm daily Follow ESR and WBC (3) Cellulitis Qualifiers: Site of cellulitis: extremity Site of cellulitis of extremity: lower extremity Laterality: right Qualified Code(s): L03.115 - Cellulitis of right lower limb Assessment/Plan: Improved The source appeared to be the wound of the R ankle. The entire right leg was red at admission. Since 01/30, the redness is now only from ankle to below the R knee Blood cx are neg to date Plan: Continue with antibiotics and probiotics Cont prn pain meds Qualifiers: Site of cellulitis: extremity Site of cellulitis of extremity: lower extremity Laterality: right Qualified Code(s): L03.115 - Cellulitis of right lower limb (4) Hyerkalemia All labs were reviewed. Patient was admitted with hypokalemia from being on Lasix at home for 2 weeks. Now he has been on spironolactone and losartan for several days which are likely adding to potassium retention Plan: Because his blood pressure is running 90-100 systolic, I will decrease the losartan from 50 mg daily to 12.5 mg daily. Continue the spironolactone. Recheck Potassium in 12 hours, give D50 and Insulin if needed Follow BMP daily (5) PVD (peripheral vascular disease) Assessment/Plan: Arterial Doppler ultrasound of the right leg was done and showed several areas with severe atherosclerotic stenosis. I checked his fasting lipids and his LDL is already <70 but we want a high HDL >45, and his HDL was low at 28 (all labs were reviewed). Plan: Cont 1 baby aspirin daily Cont [place]-3 to increase HDL This PVD will impede his wound healing. He will need further outpatient work-up and management with a vascular specialist going forward, which I discussed with him on 01/28 (6) Chronic Atrial fibrillation Conclusion/Plan: Two weeks ago, Afib was a new finding for him and he was started on beta-duane and Eliquis. He has been compliant with both meds. The heart rate at rest is under control I changed Metoprolol Tartrate to Succinate for even better HR control I checked his TSH and it is WNL Telemetry was stopped yesterday 01/30, due to good HR control. Plan: Continue with Toprol and Eliquis Qualifiers: Atrial fibrillation type: unspecified chronic Qualified Code(s): I48.20 - Chronic atrial fibrillation, unspecified; I48.2 - Chronic atrial fibrillation (7) Chronic systolic CHF (congestive heart failure) Conclusion/Plan: Two weeks ago when he presented to the ER in [facility], he c/o leg edema and pu lmonary edema was seen on chest x-ray. He was put on oral Lasix. An outpatient Echo was planned. He had not yet seen his PCP to have that Echo ordered & done. Two weeks ago he had troponins done x2 which were normal at 30 and 34. His Echocardiogram was done this admission on 01/27 which showed depressed LVEF of 45% and depressed RVEF. These were likely caused by having rapid A-fib, for unknown duration. Troponins x2 again were unremarkable at this admission. BNP at admission was 724>> 996 >> 680 (back on resumed meds) His admission CXR at admission showed no pulm edema. I started him on Spironolactone and LEWIS inhibitor, after the Echo result, continued a beta-duane, and ordered a low salt diet. I held his Lasix for a day, given the admission contraction alkalosis on labs (CO2 39), and admission prerenal azotemia on labs (BUN/creat 21/0.9) (all labs were reviewed) Plan: Continue Toprol, Losartan (today at lower dose), Spironolactone and Lasix (also at lower dose today due to soft BP). Follow his daily weight, I's and O's, electrolytes and magnesium daily, replace if low (8) Hx Hypertension Conclusion/Plan: He was running blood pressures around 150 systolic/100-110 diastolic at admission. I restarted his Losartan, Lasix and started him on Spironolactone and continued a beta-duane, for CHF and HTN treatment. Low-salt diet ordered. For the last few days his blood pressure has been "soft" at 90-110 systolic. Plan: Continue Toprol, and Spironolactone I will decrease the Losartan from 50 mg daily to 12.5 mg daily I will decrease the Lasix from 40 mg daily to 20 mg daily Qualifiers: Hypertension type: unspecified Qualified Code(s): I10 - Essential (primary) hypertension (9) Elevated bilirubin Conclusion/Plan: I re-questioned him, and the patient denied alcohol use or abuse. He said he did not notice being jaundiced. He denies any history of gallbladder problems or cancer with liver mets. On admission labs, he had a mildly elevated AST, alk phos and bili was elevated at 2.3. 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 The details are that a Urologist in [place] saw him once and told him his prostate is very hard, and possibly cancerous. Patient responded that he did not want surgery. No other management was ever ordered for him such as prostate biopsy, seeds or chemo, or even tamsulosin or finasteride. He has been self cathing for 2 years. I ordered that patient can self cath himself as needed, put supplies in room. Patient has been straight cathing here (and for 2 years) and he stated on 01/31, that he is irritating his urethra, because of being on Lasix. He requested a Moser. I ordered Moser be inserted on 01/31. Plan: Moser care Patient has an appointment with his PCP next week and he needs a Urology referral (11) Hypokalemia Conclusion/Plan: RESOLVED All labs were reviewed. His K was 2.2. at admission, likely from being on diuretics for 2-week. K was replaced. - Current Meds Current Meds: Current Medications Generic Name Dose Route Start Last Admin Trade Name Freq PRN Reason Stop Dose Admin Acetaminophen 650 mg 01/27/23 13:44 01/29/23 01:13 Acetaminophen 325 Mg Tablet PO 650 mg Q4HR PRN Administration Pain 1 to 4, or Fever Hydrocodone Bitart/Acetaminophen 1 tab 01/28/23 12:35 02/01/23 05:28 Hydrocod/Acetam 5/325 Mg Tablet PO 1 tab Q4HR PRN Administration Moderate Pain (Level 4-6) Amoxicillin/Clavulanate Potassium 1 tab 01/30/23 08:00 01/31/23 20:59 Amox/Clav 875 Mg/125 Mg Tablet PO 1 tab BID@0800,2100 JOSE Administration Apixaban 5 mg 01/27/23 21:00 01/31/23 21:00 Apixaban 5 Mg Tablet PO 5 mg BID JOSE Administration Aspirin 81 mg 01/29/23 09:00 01/31/23 09:12 Aspirin Ec 81 Mg Tablet PO 81 mg DAILY JOSE Administration Furosemide 40 mg 01/28/23 09:00 01/31/23 09:12 Furosemide 40 Mg Tablet PO 40 mg DAILY JOSE Administration Gabapentin 900 mg 01/28/23 09:00 01/31/23 09:13 Gabapentin 300 Mg Capsule PO 900 mg DAILY JOSE Administration Metoprolol Succinate 50 mg 01/27/23 21:00 01/31/23 21:02 Metoprolol Succinate 50 Mg Tablet PO Not Given BID JOSE Multi-Ingredient Gel 1 ml 01/29/23 13:57 01/31/23 09:13 [facility] 44 Ml Tube TOP 1 ml UD JOSE Administration Multivitamins/Minerals 1 tab 01/29/23 08:00 01/31/23 09:12 Multivitamin W/Minerals Tablet PO 1 tab DAILYWM JOSE Administration Kmzta-1-Ayrp Ethyl Esters 1 gm 01/29/23 09:00 01/31/23 09:12 [place]-3 Acid Ethyl Esters 1 Gm Capsule PO 1 gm DAILY JOSE Administration Sodium Chloride 10 ml 01/27/23 13:44 01/29/23 19:12 Sodium Chloride Flush 0.9% 10 Ml Syringe IVP 10 ml PRN PRN Administration NEEDED PER PROVIDER ORDERS Sodium Chloride 10 ml 01/27/23 17:00 02/01/23 04:48 Sodium Chloride Flush 0.9% 10 Ml Syringe IVP 10 ml 0100,0900,1700 JOSE Administration Spironolactone 25 mg 01/28/23 09:00 01/31/23 09:12 Spironolactone 25 Mg Tablet PO 25 mg DAILY JOSE Administration - Lab Result Fish Bone Diagrams: 02/01/23 04:51 02/01/23 04:51 - Additional Planning My Orders: My Active Orders 01/31/23 08:44 Miscellaenous Nursing Order [RC] QSHIFT 01/31/23 14:17 Moser Insertion [RC] QSHIFT 02/01/23 09:00 Losartan [Cozaar] 12.5 mg PO DAILY 02/02/23 05:00 BMP - BASIC METABOLIC PANEL [CHEM] DAILYLAB 02/03/23 05:00 BMP - BASIC METABOLIC PANEL [CHEM] DAILYLAB 02/04/23 05:00 BMP - BASIC METABOLIC PANEL [CHEM] DAILYLAB Objective Vital Signs: Vital Signs - 24 hr 01/31/23 01/31/23 01/31/23 08:40 12:06 15:49 Temperature 36.8 C 36.8 C 36.8 C Heart Rate [ 96 88 90 Brachial] Respiratory 18 18 24 Rate Blood Pressure 109/81 H 92/53 L 97/60 [Right Brachial artery] O2 Saturation 96 95 96 01/31/23 01/31/23 01/31/23 20:12 21:02 23:59 Temperature 36.7 C 36.9 C Heart Rate [ 88 87 Brachial] Respiratory 24 24 Rate Blood Pressure 99/65 95/60 100/64 [Right Brachial artery] O2 Saturation 97 96 02/01/23 05:00 Temperature 36.7 C Heart Rate [ 96 Brachial] Respiratory 20 Rate Blood Pressure 119/83 H [Right Brachial artery] O2 Saturation 98 Oxygen O2 Source Room air I&O (Last 24 Hrs): Intake and Output Totals x24h 01/30/23 01/31/23 02/01/23 23:59 23:59 23:59 Intake Total 1470 2080 Output Total 2600 4300 1800 Balance -1130 -2220 -1800 - Results Results: Laboratory Results WBC 12.9 x10^3/uL (4.8-10.8) H 02/01/23 04:51 RBC 3.96 10^6/uL (4.70-6.10) L 02/01/23 04:51 Hgb 11.3 g/dL (14.0-18.0) L 02/01/23 04:51 Hct 37.0 % (42.0-52.0) L 02/01/23 04:51 MCV 93.4 fL (80.0-94.0) 02/01/23 04:51 MCH 28.5 pg (27.0-31.0) 02/01/23 04:51 MCHC 30.5 g/dL (32.0-36.0) L 02/01/23 04:51 RDW 16.2 % (12.0-15.0) H 02/01/23 04:51 Plt Count 435 10^3/uL (130-450) 02/01/23 04:51 MPV 9.4 fL (7.4-11.4) 02/01/23 04:51 Neut # (Auto) Not Reportable 02/01/23 04:51 Lymph # (Auto) Not Reportable 02/01/23 04:51 [place] # (Auto) Not Reportable 02/01/23 04:51 Eos # (Auto) Not Reportable 02/01/23 04:51 Baso # (Auto) Not Reportable 02/01/23 04:51 Absolute Nucleated RBC Not Reportable 02/01/23 04:51 Total Counted 100 02/01/23 04:51 Band Neuts % (Manual) 0 % (0-10) 02/01/23 04:51 Abnorm Lymph % (Manual) 0 % 02/01/23 04:51 Nucleated RBC % Not Reportable 02/01/23 04:51 Neutrophils # (Manual) 9.0 10^3/uL (1.5-6.6) H 02/01/23 04:51 Lymphocytes # (Manual) 2.6 10^3/uL (1.5-3.5) 02/01/23 04:51 Monocytes # (Manual) 1.3 10^3/uL (0.0-1.0) H 02/01/23 04:51 Eosinophils # (Manual) 0.0 10^3/uL (0-0.7) 02/01/23 04:51 Basophils # (Manual) 0.0 10^3/uL (0-0.1) 02/01/23 04:51 Differential Comment MANUAL DIFFERENTIAL 02/01/23 04:51 Manual Slide Review Indicated 01/27/23 10:09 WBC Morphology NORMAL APPEARANCE (NORMAL) 02/01/23 04:51 Platelet Estimate NORMAL (130-450,000) (NORMAL) 02/01/23 04:51 Platelet Morphology NORMAL APPEARANCE (NORMAL) 02/01/23 04:51 RBC Morph Micro Appear NORMAL APPEARANCE (NORMAL) 02/01/23 04:51 ESR 60 mm/Hr (0-20) H 02/01/23 04:51 Sodium 141 mmol/L (135-145) 02/01/23 04:51 Potassium 5.6 mmol/L (3.5-5.0) H 02/01/23 04:51 Chloride 101 mmol/L (101-111) 02/01/23 04:51 Carbon Dioxide 32 mmol/L (21-32) 02/01/23 04:51 Anion Gap 8.0 (6-13) 02/01/23 04:51 BUN 19 mg/dL (6-20) 02/01/23 04:51 Creatinine 1.0 mg/dL (0.6-1.2) 02/01/23 04:51 Estimated GFR (MDRD) 72 (>89) L 02/01/23 04:51 Glucose 101 mg/dL (70-100) H 02/01/23 04:51 Lactic Acid 1.4 mmol/L (0.5-2.2) 01/27/23 10:09 Calcium 8.6 mg/dL (8.5-10.3) 02/01/23 04:51 Magnesium 1.9 mg/dL (1.7-2.8) 01/30/23 04:13 Total Bilirubin 1.1 mg/dL (0.2-1.0) H 01/30/23 04:13 Direct Bilirubin 0.4 mg/dL (0.1-0.5) 01/30/23 04:13 AST 45 IU/L (10-42) H 01/30/23 04:13 ALT 42 IU/L (10-60) 01/30/23 04:13 Alkaline Phosphatase 178 IU/L (42-121) H 01/30/23 04:13 Troponin I High Sens 29.1 ng/L (2.3-19.7) H* 01/27/23 17:09 B-Natriuretic Peptide 680 pg/mL (5-100) H 01/29/23 04:46 Total Protein 6.4 g/dL (6.7-8.2) L 01/30/23 04:13 Albumin 2.3 g/dL (3.2-5.5) L 01/30/23 04:13 Globulin 4.1 g/dL (2.1-4.2) 01/30/23 04:13 Albumin/Globulin Ratio 0.6 (1.0-2.2) L 01/27/23 10:09 Triglycerides 56 mg/dL (-149) 01/28/23 05:57 Cholesterol 104 mg/dL (-199) 01/28/23 05:57 LDL Cholesterol, Calc 65 mg/dL (-129) 01/28/23 05:57 VLDL Cholesterol 11 mg/dL 01/28/23 05:57 HDL Cholesterol 28 mg/dL (60-) L 01/28/23 05:57 LDL/HDL Ratio 2.3 (<3.6) 01/28/23 05:57 Cholesterol/HDL Ratio 3.7 (<5.0) 01/28/23 05:57 Lipase 43 U/L (22-51) 01/27/23 10:09 TSH 2.65 uIU/mL (0.34-5.60) 01/29/23 04:46
[2023-02-01] MEDS ORDERED: LOSARTAN 50 MG TABLET PO SCH (09:00)
[2023-02-01] MEDS: SPIRONOLACTONE 25 MG TABLET PO SCH (09:29)
[2023-02-01] MEDS: ASPIRIN EC 81 MG TABLET PO SCH (09:29)
[2023-02-01] MEDS: APIXABAN 5 MG TABLET PO SCH ×2 (09:29→20:58)
[2023-02-01] MEDS: OMEGA-3 ACID ETHYL ESTERS 1 GM CAPSULE PO SCH (09:30)
[2023-02-01] MEDS: GABAPENTIN 300 MG CAPSULE PO SCH (09:30)
[2023-02-01] MEDS: AMOX/CLAV 875 MG/125 MG TABLET PO SCH (09:30)
[2023-02-01] MEDS: MULTIVITAMIN W/MINERALS TABLET PO SCH (09:30)
[2023-02-01] MEDS: FUROSEMIDE 40 MG TABLET PO SCH (09:30)
[2023-02-01] MEDS: METOPROLOL SUCCINATE 50 MG TABLET PO SCH ×2 (10:33→20:58)
[2023-02-01] MEDS: MEDIHONEY TOP SCH (11:33)
--- NOTE | 2023-02-01 15:58 | XRAY Report ---
PROCEDURE: Ankle 2 View RT INDICATIONS: eval for osteo. Ankle wound. TECHNIQUE: 2 views of the ankle were acquired. COMPARISON: None. FINDINGS: Bones: No fractures or dislocations. Ankle mortise is normally aligned. No suspicious bony lesions . Soft tissues: No tibiotalar joint effusion. Achilles tendon appears normal. Skin irregularity of th e posterior medial ankle. IMPRESSION: Skin irregularity the posterior medial ankle, without underlying erosion to suggest osteomyelitis. Reviewed by: Vahid Pettit on 02/01/2023 3:56 PM PDT Approved by: Vahid Pettit on 02/01/2023 3:56 PM PDT Station ID: [id number]
[2023-02-01] MEDS: cefTRIAXone 2 GM in SODIUM CHLORIDE 0.9% MINIBAG 100 ML IV SCH (17:09)
[2023-02-01] MEDS: SACCHAROMYCES BOULARDII 250 MG CAPSULE PO SCH (17:09)
[2023-02-01] MEDS ORDERED: GADOBUTROL 7.5 MMOL/7.5 ML VIAL ONE (18:11)
[2023-02-01] MEDS ORDERED: GADOBUTROL 7.5 MMOL/7.5 ML VIAL IVP ONE (18:45)
--- NOTE | 2023-02-01 19:40 | MRI Report ---
PROCEDURE: ANKLE W/WO - RT INDICATIONS: Eval for osteo CONTRAST: gadavist 7.4 TECHNIQUE: Noncontrast sagittal T1 spin echo and T2 fast spin echo with fat saturation, axial proton density fas t spin echo and T2 fast spin echo with fat saturation, axial T1 spin echo with fat saturation, bynum l T1 spin echo and T2 fast spin echo with fat saturation through the ankle/hindfoot. Post-contrast a xial, coronal, and sagittal T1 spin echo with fat saturation through the ankle/hindfoot. COMPARISON: Right ankle radiograph dated 02/01/2023. FINDINGS: Image quality: Excellent. Bones and joints: Ulceration involving posterior medial distal lower leg soft tissue is seen. There i s adjacent soft tissue swelling and edema extending to distal lower leg and around ankle joint. No di screte drainable abscess collection is noted. Shallow ulceration is also noted involving anterior asp ect of distal lower leg with surrounding soft tissue edema and swelling. No suspicious osseous enhanc ement. Midfoot and hindfoot joint osteoarthritic changes are seen. No marrow edema. No fracture or d islocation. No cortical erosion or abnormal periosteal reaction. No hindfoot coalitions. No osteocho ndral injuries of the talar dome. No pathologic joint effusions. Medial structures: The posterior tibialis, flexor digitorum longus, and flexor hallucis longus tendo ns are intact. The posterior tibial neurovascular bundle appears normal within the tarsal tunnel, wi thout extrinsic mass effect. The deep and superficial layers of the deltoid ligament as well as spri ng ligament are mildly thickened. Lateral structures: The anterior talofibular, calcaneofibular, and posterior talofibular ligaments a ppear mildly thickened. More superiorly, the anterior and posterior tibiofibular ligaments appear no rmal, as is the intermalleolar ligament. The peroneus longus and brevis tendons demonstrate normal l ocation and morphology. The sinus tarsi demonstrates normal fatty signal. Anterior structures: The tibialis anterior, extensor hallucis longus, and extensor digitorum longus tendons appear intact. Posterior and plantar structures: Achilles tendon is intact. Medial and lateral bands of the planta r fascia are of normal thickness. IMPRESSION: 1. Ulceration in anterior and posterior medial aspect of right lower leg with extensive surrounding c ellulitis. No discrete drainable abscess collection. No enhancing soft tissue mass. 2. No underlying lower leg muscle involvement. 3. Low-grade medial and lateral ankle ligament sprain. No ankle ligament rupture. Ankle tendons are i ntact. 4. 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 No fracture or dislocation. No evidenc e of osteomyelitis. No osteochondral injuries of talar dome. Reviewed by: Richard Russell MD on 02/01/2023 7:39 PM PDT Approved by: Richard Russell MD on 02/01/2023 7:39 PM PDT Station ID: [id number]
[2023-02-02] MEDS: SODIUM CHLORIDE FLUSH 0.9% 10 ML SYRINGE IVP SCH ×4 (00:31→20:32)
[2023-02-02 05:24] LABS: BASOPHILS % (AUTO) 0.5 %; EOSINOPHILS % (AUTO) 0.9 %; HCT - HEMATOCRIT 36.6 % (42.0-52.0); HGB - HEMOGLOBIN 11.4 g/dL (14.0-18.0); LYMPHOCYTES % (AUTO) 14.3 %; MEAN CORPUSCULAR HEMOGLOBIN 29.2 pg (27.0-31.0); MEAN CORPUSCULAR HGB CONC 31.1 g/dL (32.0-36.0); MEAN CORPUSCULAR VOLUME 93.6 fL (80.0-94.0); MEAN PLATELET VOLUME 9.4 fL (7.4-11.4); MONOCYTES % (AUTO) 14.2 %; NEUTROPHILS % (AUTO) 68.9 %; PLT - PLATELET COUNT 486 10^3/uL (130-450); RED BLOOD COUNT 3.91 10^6/uL (4.70-6.10); RED CELL DISTRIBUTION WIDTH 16.3 % (12.0-15.0); WHITE BLOOD COUNT 13.6 x10^3/uL (4.8-10.8)
[2023-02-02 05:32] LABS: ABNORMAL LYMPHS % (MANUAL) 0 %; BAND NEUTROPHILS % (MANUAL) 0 %
[2023-02-02 05:37] LABS: CALCIUM 8.3 mg/dL (8.5-10.3); CREATININE 1.1 mg/dL (0.6-1.2); POTASSIUM 5.6 mmol/L (3.5-5.0)
[2023-02-02 05:44] LABS: DIFFERENTIAL COMMENT MANUAL DIFFERENTIAL; EOSINOPHILS # (MANUAL) 0.3 10^3/uL (0-0.7); LYMPHOCYTES # (MANUAL) 1.8 10^3/uL (1.5-3.5); LYMPHOCYTES % (MANUAL) 13 %; MONOCYTES # (MANUAL) 2.7 10^3/uL (0.0-1.0); MYELOCYTES % (MANUAL) 1 %; NEUTROPHILS # (MANUAL) 8.7 10^3/uL (1.5-6.6); PLATELET ESTIMATE, MANUAL INCREASED (>450,000) (NORMAL); PLATELET MORPHOLOGY NORMAL APPEARANCE (NORMAL); RBC MORPHOLOGY (MULTIPLE) NORMAL APPEARANCE (NORMAL); WBC MORPHOLOGY (MULTIPLE) NORMAL APPEARANCE (NORMAL)
[2023-02-02] MEDS: HYDROcod/ACETAM 5/325 MG TABLET PO PRN ×2 (07:28→18:57)
[2023-02-02] MEDS: MEDIHONEY TOP SCH (07:41)
--- NOTE | 2023-02-02 08:15 | PROVIDER PROGRESS NOTE ---
Subjective - Prog Note Date Prog Note Date: 02/02/23 Prog Note Time: 08:12 - Subjective Pt reports feeling: Improved Subjective: Patient registered an elevated temperature of 38.2 at 8:45 last night. A check after 1 hour showed it to be 37.3. Nursing is encouraging incentive spirometry and to get out of bed. Repeat wound culture from 1:30 yesterday afternoon has same Group G beta hemolytic strep found on admit. For some reason the patient has shared that he supposed to be nonweightbearing. When we queried him about this he says that the "wound nurse" told him that. I went to go speak to her, and she says that she has NOT instructed him to be nonweightbearing. So encouraged the patient to get up and walk. He also has a new bruise on his right flank. Rather it was noted by nursing this morning. I am coming on service this morning so I do not know if it is new or old. Patient says he does not know. And if it is a bruise from trauma he does not know how he got it. Current Medications - Current Medications Current Medications: Active Medications Acetaminophen (Acetaminophen 325 Mg Tablet) 650 mg PO Q4HR PRN PRN Reason: Pain 1 to 4, or Fever Last Admin: 01/29/23 01:13 Dose: 650 mg Hydrocodone Bitart/Acetaminophen (Hydrocod/Acetam 5/325 Mg Tablet) 1 tab PO Q4HR PRN PRN Reason: Moderate Pain (Level 4-6) Last Admin: 02/02/23 07:28 Dose: 1 tab Apixaban (Apixaban 5 Mg Tablet) 5 mg PO BID [facility] Last Admin: 02/01/23 20:58 Dose: 5 mg Aspirin (Aspirin Ec 81 Mg Tablet) 81 mg PO DAILY [facility] Last Admin: 02/01/23 09:29 Dose: 81 mg Furosemide (Furosemide 40 Mg Tablet) 20 mg PO DAILY [facility] Gabapentin (Gabapentin 300 Mg Capsule) 900 mg PO DAILY [facility] Last Admin: 02/01/23 09:30 Dose: 900 mg Ceftriaxone Sodium 2 gm/ (Sodium Chloride) 100 mls @ 200 mls/hr IV DAILY [facility] Last Infusion: 02/01/23 18:10 Dose: Infused Losartan Potassium (Losartan 50 Mg Tablet) 12.5 mg PO QPM [facility] Metoprolol Succinate (Metoprolol Succinate 50 Mg Tablet) 50 mg PO BID [facility] Last Admin: 02/01/23 20:58 Dose: 50 mg Multi-Ingredient Gel (Medihoney 44 Ml Tube) 1 ml TOP UD [facility] Last Admin: 02/02/23 07:41 Dose: Not Given Multivitamins/Minerals (Multivitamin W/Minerals Tablet) 1 tab PO DAILYWM [facility] Last Admin: 02/01/23 09:30 Dose: 1 tab [id number] Ethyl Esters ([place]-3 Acid Ethyl Esters 1 Gm Capsule) 1 gm PO DAILY [facility] Last Admin: 02/01/23 09:30 Dose: 1 gm Ondansetron HCl (Ondansetron 4 Mg/2 Ml Vial) 4 mg IVP Q6HR PRN PRN Reason: Nausea / Vomiting Saccharomyces Boulardii (Saccharomyces Boulardii 250 Mg Capsule) 250 mg PO BIDWM [facility] Last Admin: 02/01/23 17:09 Dose: 250 mg Sodium Chloride (Sodium Chloride Flush 0.9% 10 Ml Syringe) 10 ml IVP PRN PRN PRN Reason: NEEDED PER PROVIDER ORDERS Last Admin: 01/29/23 19:12 Dose: 10 ml Sodium Chloride (Sodium Chloride Flush 0.9% 10 Ml Syringe) 10 ml IVP 0100,0900,1700 [facility] Last Admin: 02/02/23 07:29 Dose: 10 ml Spironolactone (Spironolactone 25 Mg Tablet) 25 mg PO 1200 JOSE Apixaban [Eliquis] 10 mg PO DAILY 01/27/23 Furosemide [Lasix] 80 mg PO DAILY 01/27/23 Gabapentin [Neurontin] 3 cap PO DAILY 01/27/23 Losartan [Cozaar] 1 tab PO DAILY 01/27/23 Metoprolol Tartrate [Lopressor] 2 tab PO DAILY 01/27/23 Naproxen Sodium [Aleve] 1 tab PO DAILY PRN 01/27/23 Objective - Vital Signs/Intake & Output Reviewed Vital Signs: Yes Vital Signs: Vital Signs x48h Temp Pulse Resp BP Pulse Ox 02/02/23 07:28 36.6 C 73 16 100/58 L 96 02/02/23 06:25 36.6 C 81 20 114/76 98 02/02/23 00:43 36.7 C 89 20 105/64 95 Intake & Output: Intake & Output 01/30/23 01/31/23 02/01/23 02/02/23 23:59 23:59 23:59 23:59 Intake Total 1470 2080 2180 Output Total 2609 0818 9269 2223 Balance -1130 -2220 -8635 -2225 - Objective General Appearance: positive: No acute distress, Alert, Other (Bald, wearing glasses, thin, alert elderly man) Eyes Bilateral: positive: PERRL, EOMI ENT: positive: No signs of dehydration Neck: positive: No JVD. negative: Stiff neck Respiratory: positive: No respiratory distress. negative: Wheezes, Rales, Rhonchi Cardiovascular: positive: Irregularly irregular, Systolic murmur Abdomen: positive: Non-tender, No organomegaly, Nml bowel sounds, No distention Skin: positive: Warm, Dry, Other (Right flank with resolving bruise and ecchymosis) Extremities: positive: Full ROM, Other (Left leg shrunken and tripled from edema resolved. Otherwise normal skin. Right leg with woody brawny changes from knee down. Also shows signs of shrinkage and wrinkling. No redness, heat. Edema is 1-2+ and hard.) Neurologic/Psychiatric: positive: Oriented x3, CN's nml (2-12), Motor nml - Lab Results Fish Bones: 02/02/23 04:12 02/02/23 13:56 Other Labs: Lab Results x24hrs 02/02/23 02/02/23 02/02/23 Range/Units 04:12 04:12 04:12 WBC 13.6 H (4.8-10.8) x10^3/uL RBC 3.91 L (4.70-6.10) 10^6/uL Hgb 11.4 L (14.0-18.0) g/dL Hct 36.6 L (42.0-52.0) % MCV 93.6 (80.0-94.0) fL MCH 29.2 (27.0-31.0) pg MCHC 31.1 L (32.0-36.0) g/dL RDW 16.3 H (12.0-15.0) % Plt Count 486 H (130-450) 10^3/uL MPV 9.4 (7.4-11.4) fL Neut # (Auto) Not Reportable Lymph # (Auto) Not Reportable [place] # (Auto) Not Reportable Eos # (Auto) Not Reportable Baso # (Auto) Not Reportable Absolute Nucleated RBC Not Reportable Total Counted 100 Band Neuts % (Manual) 0 (0 - 10) % Abnorm Lymph % (Manual) 0 % Myelocytes % 1 H ( - 0) % Nucleated RBC % Not Reportable Neutrophils # (Manual) 8.7 H (1.5-6.6) 10^3/uL Lymphocytes # (Manual) 1.8 (1.5-3.5) 10^3/uL Monocytes # (Manual) 2.7 H (0.0-1.0) 10^3/uL Eosinophils # (Manual) 0.3 (0-0.7) 10^3/uL Basophils # (Manual) 0.0 (0-0.1) 10^3/uL Differential Comment MANUAL DIFFERENTIAL WBC Morphology NORMAL APPEARANCE (NORMAL) Platelet Estimate INCREASED (>450,000) (NORMAL) Platelet Morphology NORMAL APPEARANCE (NORMAL) RBC Morph Micro Appear NORMAL APPEARANCE (NORMAL) ESR 72 H (0-20) mm/Hr Sodium 136 (135-145) mmol/L Potassium 5.6 H (3.5-5.0) mmol/L Chloride 98 L (101-111) mmol/L Carbon Dioxide 32 (21-32) mmol/L Anion Gap 6.0 (6-13) BUN 22 H (6-20) mg/dL Creatinine 1.1 (0.6-1.2) mg/dL Estimated GFR (MDRD) 64 L (>89) Glucose 96 (70-100) mg/dL Calcium 8.3 L (8.5-10.3) mg/dL 02/01/23 Range/Units 15:59 WBC (4.8-10.8) x10^3/uL RBC (4.70-6.10) 10^6/uL Hgb (14.0-18.0) g/dL Hct (42.0-52.0) % MCV (80.0-94.0) fL MCH (27.0-31.0) pg MCHC (32.0-36.0) g/dL RDW (12.0-15.0) % Plt Count (130-450) 10^3/uL MPV (7.4-11.4) fL Neut # (Auto) Lymph # (Auto) [place] # (Auto) Eos # (Auto) Baso # (Auto) Absolute Nucleated RBC Total Counted Band Neuts % (Manual) (0 - 10) % Abnorm Lymph % (Manual) % Myelocytes % ( - 0) % Nucleated RBC % Neutrophils # (Manual) (1.5-6.6) 10^3/uL Lymphocytes # (Manual) (1.5-3.5) 10^3/uL Monocytes # (Manual) (0.0-1.0) 10^3/uL Eosinophils # (Manual) (0-0.7) 10^3/uL Basophils # (Manual) (0-0.1) 10^3/uL Differential Comment WBC Morphology (NORMAL) Platelet Estimate (NORMAL) Platelet Morphology (NORMAL) RBC Morph Micro Appear (NORMAL) ESR (0-20) mm/Hr Sodium (135-145) mmol/L Potassium 4.9 (3.5-5.0) mmol/L Chloride (101-111) mmol/L Carbon Dioxide (21-32) mmol/L Anion Gap (6-13) BUN (6-20) mg/dL Creatinine (0.6-1.2) mg/dL Estimated GFR (MDRD) (>89) Glucose (70-100) mg/dL Calcium (8.5-10.3) mg/dL ABX Reporting Has patient been on IV antibiotics over the past 48 hours?: Yes Assessment/Plan - Problem List (1) Open wound of right lower leg with complication Impression: He presented with a line of skin breakdown where the lower edge of the RILEY hose was compressing his skin, nearly circumferential, mostly posterior, around his R ankle. It had developed 2 days before admission. At admission, it was draining copious yellow pus. He was started on empiric iv antibx. He describes edematous legs on admission. The edema has improved substantially. My physical exam today shows much improved swelling and edema of the left calf so that it is normal now except for wrinkled skin. The right leg still has woody edema and brown discoloration but it again has much improved edema. Wound practice management consultant Dr Stark saw him on admission, advised dressing changes q3days with Medihoney and Meplex. He advised antibx and W/U for PVD. That arterial US was abnormal showing PVD (see #3). I have reviewed his CBC. WBC was 15 at admission >> 10>> 11>> 13>> 10 >> 12.9>>13.6 today. And his ESR was 14 at admission>> 61 yesterday>> 60>>72 today. While his skin exam and edema has improved from admission, his labs showed minimal improvement. If anything they are worsening. Hospitalist looked at wound on 01/30, during a q3d dressing change by nursing. The ankle wound anteriorly, was round, had a wet purulent base (was dry prev iously), and the circumferential wound on the posterior ankle was enlarging, appeared yellow and necrotic with red edges. It was tender. Wound clinic nurse Romy saw him 02/01 (and she had discussed him with Dr Stark). His posterior R ankle wound was unwrapped and looks worse. A new culture was taken. It could not be debrided due to severe pain. Dr Stark advised W/U for osteomyelitis. As such, I have reviewed the radiology that were ordered last night. Ankle MRI shows ulceration in the anterior and posterior medial aspect of the right lower leg with extensive surrounding cellulitis. No discrete abscess or enhancing soft tissue mass. No lower leg muscle involvement. He had low-grade medial and lateral ankle ligament sprain. No ankle ligament rupture. Ankle tendons are intact. 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 He had some osteochondral injury to the talar dome. Ankle x-ray had skin irregularity in the posterior medial ankle without underlying erosion to suggest osteomyelitis. I went down to Dr. Moran's department and I Spoke to Dr. Moran directly. The patient's sed rate and white cell count are elevated, but his exam shows improvement in overall leg edema and redness. The ulcer is felt to be ischemic. This is going to take a very long time to heal and he may need vascular evaluation and treatment. Plan: Because his WBC and ESR had not improved, hospitalist stopped oral antibx and resumed iv antibx, using Rocephin 2 gm daily on 02/01. I will continue that. We do not have penicillin because of a nationwide shortage at this time. Follow ESR and WBC (so far no improvment after one dose of Rocephin) Continue dressing changes as rec by Wound clinic Continue [place] 5/325 1 p.o. every 4 hours as needed moderate pain, Neurontin 900 mg daily. His pain is controlled with this. [place] and has to climb a ladder plus some stairs, which will be difficult with his leg and ankle pain. He thinks he will manage using forearm crutches (which I would be able to order if not available in our PT dept) and thinks he will get help from [place]. PT wants to check his mobility with forearm crutches before he is [facility]. He will continue to work with physical therapy while here. He is working with physical therapy and will continue to do so. I have also told him that he is not with restricted ambulation. He can weight-bear. There is no risk of tendon rupture because he is "walking". (2) Infection due to beta-hemolytic Streptococcus Assessment/Plan: The wound culture grew beta-hemolytic Strep. His iv Vanco was then changed to iv Ampicillin, which was changed to po Augmentin when the redness of his leg cellulitis got better. WBC has been fluctuating but ESR samantha (see #1). Repeat wound from wound clinic on February 01 shows continued beta-hemolytic strep. Antibiotics changed to Rocephin 2 g daily. Plan: Follow ESR and WBC . But I do not know how much these objective indicators will help me decide if he is responding or not. His physical exam shows definite improvement. Other than that depth of the ischemic leg ulcer. I will consider consulting infectious disease by phone call and I will also discussed with general surgery what the timeframe would be to take care of his ischemic ulcer with vascular intervention (3) Cellulitis Qualifiers: Site of cellulitis: extremity Site of cellulitis of extremity: lower extremity Laterality: right Qualified Code(s): L03.115 - Cellulitis of right lower limb Assessment/Plan: Improved The source appeared to be the wound of the R ankle. The entire right leg was red at admission. Since 01/30, the redness is now only from ankle to below the R knee And by my exam the redness superiorly is also fading, even from yesterday Blood cx are neg to date Plan: Continue with antibiotics and probiotics Cont prn pain meds Qualifiers: Site of cellulitis: extremity Site of cellulitis of extremity: lower extremity Laterality: right Qualified Code(s): L03.115 - Cellulitis of right lower limb (4) Hyerkalemia All labs were reviewed. Patient was admitted with hypokalemia from being on Lasix at home for 2 weeks. Now he has been on spironolactone and losartan for several days which are likely adding to potassium retention. The previous hospitalist decreased his losartan from 50 mg daily to 12.5 mg daily. Continued the spironolactone. A repeat potassium went from 5.6->4.9 yesterday. This morning he is 5.6. A repeat potassium is 4.4. He has not needed D50 or insulin. I do suspect that the potassium elevation is due to drug interaction. Plan: Because his blood pressure is running 90-100 systolic, losartan was decreased from 50 mg daily to 12.5 mg daily 02/01 and the spironolactone continued yesterday. K went down by the afternoon but back up this am, and once again, down in the afternoon. I am stopping the spironolactone (5) PVD (peripheral vascular disease) Assessment/Plan: Arterial Doppler ultrasound of the right leg was done and showed several areas with severe atherosclerotic stenosis. I checked his fasting lipids and his LDL is already <70 but we want a high HDL >45, and his HDL was low at 28 (all labs were reviewed). So far our treatment is : 1 baby aspirin daily [place]-3 to increase HDL This PVD will impede his wound healing. He will need further outpatient work-up and management with a vascular specialist going forward, which was discussed with him on 01/28 and with me today (6) Chronic Atrial fibrillation Conclusion/Plan: Two weeks ago, Afib was a new finding for him and he was started on beta-duane and Eliquis. He has been compliant with both meds. The heart rate at rest is under control . TSH was WNL. His Metoprolol Tartrate was changed to Succinate for even better HR control Telemetry was stopped 01/30, due to good HR control. Heart rate is consistently in the 80s, occasionally as high as 93 once today. Plan: Continue with Toprol and Eliquis Qualifiers: Atrial fibrillation type: unspecified chronic Qualified Code(s): I48.20 - Chronic atrial fibrillation, unspecified; I48.2 - Chronic atrial fibrillation (7) Chronic systolic CHF (congestive heart failure) Conclusion/Plan: Two weeks ago when he presented to the ER in [facility], he c/o leg edema and pulmonary edema was seen on chest x-ray. He was put on oral Lasix. An outpatient Echo was planned. He had not yet seen his PCP to have that Echo ordered & done. Two weeks ago he had troponins done x2 which were normal at 30 and 34. His Echocardiogram was done this admission on 01/27 which showed depressed LVEF of 45% and depressed RVEF. These were likely caused by having rapid A-fib, for unknown duration. Troponins x2 again were unremarkable at this admission. BNP at admission was 724>> 996 >> 680 (back on resumed meds) His admission CXR at admission showed no pulm edema. With this admission, he was started on Spironolactone and LEWIS inhibitor, after the Echo result, continued a beta-duane, and ordered a low salt diet. His lasix was held once due to contraction alkalosis on labs (CO2 39), and admission prerenal azotemia on labs (BUN/creat 21/0.9) (all labs were reviewed) His weight on admission was 72 kg. He was as high as 74 kg yesterday. Today he has been 68 kg. In looking at his output, his urine output was increased on the to 4300 cc. On the he had put out 2600. Yesterday he put out 5875 cc. And as of this note dictation he is put out 3825 cc. BUN is slightly elevated today at 23. It was 19 on the . And his creatinine is holding steady at 0.9. As such I think he is approaching euvolemic status. Plan: I am stopping spironolactone because of hyperkalemia. I am continuing to reduce losartan dose to 12.5 mg a day. And I am continuing the Lasix at 20 mg daily (which had been 40 mg). If he continues to have a brisk urine output with even more weight loss, I may consider holding the Lasix tomorrow. Follow his daily weight, I's and O's, electrolytes and magnesium daily, replace if low (8) Hx Hypertension Conclusion/Plan: He was running blood pressures around 150 systolic/100-110 diastolic at admission. He was restarted on Losartan, Lasix and started him on Spironolactone and continued a beta-duane, for CHF and HTN treatment. Low-salt diet ordered. For the last few days his blood pressure has been "soft" at 90-110 systolic. Toprol and spironolactone were continued. On February 01 losartan was decreased to 12.5 mg daily (had been 50 mg daily). Lasix was decreased to 20 mg from 40 mg. Today, Systolic blood pressure since midnight last night has been 105, 114, 100, 101. Plan: Continue Lasix 20 mg, Toprol, losartan 12.5 mg. Stop the spironolactone. Qualifiers: Hypertension type: unspecified Qualified Code(s): I10 - Essential (primary) hypertension (9) Elevated bilirubin Conclusion/Plan: The patient denies alcohol use or abuse. He said he did not notice being jaundiced. He denies any history of gallbladder problems or cancer with liver mets. On admission labs, he had a mildly elevated AST, alk phos and bili was elevated at 2.3. Then bilirubin dropped to 1.3 >> then plateaued at 1.1 It is felt that he has liver congestion from CHF. 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 The details are that a Urologist in [place] saw him once and told him his prostate is very hard, and possibly cancerous. Patient responded that he did not want surgery. No other management was ever ordered for him such as prostate biopsy, seeds or chemo, or even tamsulosin or finasteride. He has been self cathing for 2 years. Order placed that patient can self cath himself as needed, put supplies in room. Patient has been straight cathing here (and for 2 years) and he stated on 01/31, that he is irritating his urethra, because of being on Lasix. He requested a Moser. Moser be inserted on 01/31. Plan: Moser care Patient has an appointment with his PCP next week and he needs a Urology referral PSA in am (11) Hypokalemia Conclusion/Plan: RESOLVED His K was 2.2. at admission, likely from being on diuretics for 2-week. K was replaced. Now he is hyperkalemic.
[2023-02-02] MEDS: cefTRIAXone 2 GM in SODIUM CHLORIDE 0.9% MINIBAG 100 ML IV SCH (08:32)
[2023-02-02] MEDS: GABAPENTIN 300 MG CAPSULE PO SCH (08:32)
[2023-02-02] MEDS: FUROSEMIDE 40 MG TABLET PO SCH (08:32)
[2023-02-02] MEDS: METOPROLOL SUCCINATE 50 MG TABLET PO SCH ×2 (08:33→20:32)
[2023-02-02] MEDS: ASPIRIN EC 81 MG TABLET PO SCH (08:33)
[2023-02-02] MEDS: OMEGA-3 ACID ETHYL ESTERS 1 GM CAPSULE PO SCH (08:33)
[2023-02-02] MEDS: APIXABAN 5 MG TABLET PO SCH ×2 (08:34→20:31)
[2023-02-02] MEDS: MULTIVITAMIN W/MINERALS TABLET PO SCH (08:40)
[2023-02-02] MEDS: SACCHAROMYCES BOULARDII 250 MG CAPSULE PO SCH ×2 (08:40→16:31)
[2023-02-02] MEDS ORDERED: SPIRONOLACTONE 25 MG TABLET PO SCH (12:00)
[2023-02-02 14:10] LABS: CALCIUM 8.1 mg/dL (8.5-10.3); CREATININE 0.9 mg/dL (0.6-1.2); POTASSIUM 4.4 mmol/L (3.5-5.0)
[2023-02-02] MEDS ORDERED: cefTRIAXone 2 GM in SODIUM CHLORIDE 0.9% MINIBAG 100 ML IV SCH (15:23)
[2023-02-02] MEDS: LOSARTAN 50 MG TABLET PO SCH (20:32)
[2023-02-03] MEDS: HYDROcod/ACETAM 5/325 MG TABLET PO PRN ×3 (04:36→20:26)
[2023-02-03 06:07] LABS: BASOPHILS # (AUTO) 0.1 10^3/uL (0.0-0.1); BASOPHILS % (AUTO) 0.8 %; EOSINOPHILS # (AUTO) 0.1 10^3/uL (0.0-0.7); EOSINOPHILS % (AUTO) 0.8 %; HCT - HEMATOCRIT 35.3 % (42.0-52.0); HGB - HEMOGLOBIN 11.1 g/dL (14.0-18.0); LYMPHOCYTES # (AUTO) 1.6 10^3/uL (1.5-3.5); LYMPHOCYTES % (AUTO) 14.4 %; MEAN CORPUSCULAR HGB CONC 31.4 g/dL (32.0-36.0); MEAN CORPUSCULAR VOLUME 92.2 fL (80.0-94.0); MEAN PLATELET VOLUME 9.2 fL (7.4-11.4); MONOCYTES # (AUTO) 1.4 10^3/uL (0.0-1.0); MONOCYTES % (AUTO) 12.5 %; NEUTROPHILS % (AUTO) 70.4 %; PLT - PLATELET COUNT 551 10^3/uL (130-450); RED BLOOD COUNT 3.83 10^6/uL (4.70-6.10); RED CELL DISTRIBUTION WIDTH 16.4 % (12.0-15.0); WHITE BLOOD COUNT 11.3 x10^3/uL (4.8-10.8)
[2023-02-03 06:18] LABS: CALCIUM 8.2 mg/dL (8.5-10.3); CREATININE 0.9 mg/dL (0.6-1.2)
[2023-02-03] MEDS: APIXABAN 5 MG TABLET PO SCH ×2 (08:21→20:26)
[2023-02-03] MEDS: GABAPENTIN 300 MG CAPSULE PO SCH (08:21)
[2023-02-03] MEDS: MULTIVITAMIN W/MINERALS TABLET PO SCH (08:22)
[2023-02-03] MEDS: METOPROLOL SUCCINATE 50 MG TABLET PO SCH ×2 (08:22→20:27)
[2023-02-03] MEDS: ASPIRIN EC 81 MG TABLET PO SCH (08:22)
[2023-02-03] MEDS: OMEGA-3 ACID ETHYL ESTERS 1 GM CAPSULE PO SCH (08:22)
[2023-02-03] MEDS: FUROSEMIDE 40 MG TABLET PO SCH (08:22)
[2023-02-03] MEDS: SACCHAROMYCES BOULARDII 250 MG CAPSULE PO SCH ×2 (08:22→16:46)
[2023-02-03] MEDS: SODIUM CHLORIDE FLUSH 0.9% 10 ML SYRINGE IVP SCH ×3 (08:23→20:28)
[2023-02-03] MEDS: MEDIHONEY TOP SCH (08:23)
[2023-02-03] MEDS: cefTRIAXone 2 GM in SODIUM CHLORIDE 0.9% MINIBAG 100 ML IV SCH (08:24)
--- NOTE | 2023-02-03 18:39 | PROVIDER PROGRESS NOTE ---
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 I explained to him that he can ambulate with weightbearing as tolerated. And he can elevate his legs to reduce edema. For some reason he thought that he was nonweightbearing and that he could only have his legs as dependent. I went over all the wound care instructions. He understands he is getting need to see a vascular surgeon in follow-up. He has a follow-up appointment with Dr. Combs, his PCP in the near future. So far his vitals have been stable other than an isolated episode of 94/63 at midnight last night. He denies chest pain, shortness of breath. Coughing. He is eating 75 to 100% of his food. And he had a bowel movement on February 01 and February 02. He continues to have a Moser catheter. Active Medications Acetaminophen (Acetaminophen 325 Mg Tablet) 650 mg PO Q4HR PRN PRN Reason: Pain 1 to 4, or Fever Last Admin: 01/29/23 01:13 Dose: 650 mg Hydrocodone Bitart/Acetaminophen (Hydrocod/Acetam 5/325 Mg Tablet) 1 tab PO Q4HR PRN PRN Reason: Moderate Pain (Level 4-6) Last Admin: 02/03/23 13:14 Dose: 1 tab Apixaban (Apixaban 5 Mg Tablet) 5 mg PO BID [facility] Last Admin: 02/03/23 08:21 Dose: 5 mg Aspirin (Aspirin Ec 81 Mg Tablet) 81 mg PO DAILY [facility] Last Admin: 02/03/23 08:22 Dose: 81 mg Furosemide (Furosemide 40 Mg Tablet) 20 mg PO DAILY [facility] Last Admin: 02/03/23 08:22 Dose: 20 mg Gabapentin (Gabapentin 300 Mg Capsule) 900 mg PO DAILY [facility] Last Admin: 02/03/23 08:21 Dose: 900 mg Ceftriaxone Sodium 2 gm/ (Sodium Chloride) 100 mls @ 200 mls/hr IV DAILY [facility] Last Infusion: 02/03/23 09:20 Dose: Infused Losartan Potassium (Losartan 50 Mg Tablet) 12.5 mg PO QPM [facility] Last Admin: 02/02/23 20:32 Dose: Not Given Metoprolol Succinate (Metoprolol Succinate 50 Mg Tablet) 50 mg PO BID [facility] Last Admin: 02/03/23 08:22 Dose: 50 mg Multi-Ingredient Gel (Global New Medianey 44 Ml Tube) 1 ml TOP UD [facility] Last Admin: 02/03/23 08:23 Dose: Not Given Multivitamins/Minerals (Multivitamin W/Minerals Tablet) 1 tab PO DAILYWM [facility] Last Admin: 02/03/23 08:22 Dose: 1 tab [place]-6-Hixy Ethyl Esters ([place]-3 Acid Ethyl Esters 1 Gm Capsule) 1 gm PO DAILY [facility] Last Admin: 02/03/23 08:22 Dose: 1 gm Ondansetron HCl (Ondansetron 4 Mg/2 Ml Vial) 4 mg IVP Q6HR PRN PRN Reason: Nausea / Vomiting Saccharomyces Boulardii (Saccharomyces Boulardii 250 Mg Capsule) 250 mg PO BIDWM [facility] Last Admin: 02/03/23 16:46 Dose: 250 mg Sodium Chloride (Sodium Chloride Flush 0.9% 10 Ml Syringe) 10 ml IVP PRN PRN PRN Reason: NEEDED PER PROVIDER ORDERS Last Admin: 01/29/23 19:12 Dose: 10 ml Sodium Chloride (Sodium Chloride Flush 0.9% 10 Ml Syringe) 10 ml IVP 0100,0900,1700 [facility] Last Admin: 02/03/23 16:46 Dose: 10 ml Apixaban [Eliquis] 10 mg PO DAILY 01/27/23 Furosemide [Lasix] 80 mg PO DAILY 01/27/23 Gabapentin [Neurontin] 3 cap PO DAILY 01/27/23 Losartan [Cozaar] 1 tab PO DAILY 01/27/23 Metoprolol Tartrate [Lopressor] 2 tab PO DAILY 01/27/23 Naproxen Sodium [Aleve] 1 tab PO DAILY PRN 01/27/23 Vitals: Temperature 36.6, heart rate 85, blood pressure 113/66, respirations 18, 96% on room air Slender alert elderly gentleman with glasses, balding, scruffy schmid. Cheerful, normal conversation. Slightly deaf. Neck is supple with shotty adenopathy Lungs are clear without crackles rhonchi wheezing. There is no respiratory distress and is comfortable speaking in a normal conversation Regular rate and rhythm with a systolic murmur Abdomen is soft, nontender, normal bowel sounds Left leg skin is shrunken and wrinkled from resolution of edema. There is no redness, discoloration of the skin. Right leg has woody edema where the skin is hard, wrinkled and shrunken as well but still with residual edema. The ulcer over the distal calf above the Achilles has bluish-black eschar. No surrounding redness or cellulitis. Mildly deaf. But alert and oriented to person place and time. No focal def icits. Lab: BMP is normal with an anion gap of 5, BUN 24, creatinine 0.9. Glucose is 112. White cell count is 11.3. He was admitted at 15.0. And it is slowly been coming down. Hemoglobin is 11.1. Platelets are 551. Assessment/Plan - Problem List (1) Open wound of right lower leg with complication Impression: At this time, it is felt that he has an ischemic ulcer. But there is also evidence that there was some pressure where he had skin breakdown from compression of the RILEY hose edge. It started 2 days before admission. On admission exam he had substantial leg edema, redness and heat. The legs been gradually improving with reduction in edema and wrinkling of the skin. But he continues to have woody edema over that right leg. Evaluation shows he does have positive peripheral vascular disease on ABIs. He has been seen by wound clinic twice while here. On January 30 it appeared that the ulcer may be worsening. But it is staying stable between then and now. He has been on Rocephin 2 g daily for antibiotics. [place] 5/325 every 4 hours as needed for pain, Neurontin 900 mg daily. Although objective data of sed rate and white cell count showed worsening, is physical exam is staying stable. I will be changing him to oral antibiotics and sending him home tomorrow. I have given him wound care instructions tonight. He will be making arrangements to be picked up, and to be followed by his primary care provider Tal Combs. He needs referral to vascular surgeon. (2) Infection due to beta-hemolytic Streptococcus Assessment/Plan: Beta hemolytic strep has grown out from the admission culture as well as the February 01 wound clinic culture. Initially he was on IV vancomycin which was changed to ampicillin which was changed to p.o. Augmentin. When his wounds seem to worsen January 30 he was resumed on IV antibiotics and he is on Rocephin. Plan: Changed to Keflex. (3) Cellulitis Qualifiers: Site of cellulitis: extremity Site of cellulitis of extremity: lower extremity Laterality: right Qualified Code(s): L03.115 - Cellulitis of right lower limb Assessment/Plan: Improved The source appeared to be the wound of the R ankle. The entire right leg was red at admission. Since 01/30, the redness is now only from ankle to below the R knee And by my exam the redness superiorly is also fading, even from yesterday Blood cx are neg to date Plan: Continue with antibiotics and probiotics Cont prn pain meds Qualifiers: Site of cellulitis: extremity Site of cellulitis of extremity: lower extremity Laterality: right Qualified Code(s): L03.115 - Cellulitis of right lower limb (4) Hyperkalemia When he was admitted, the patient had hypokalemia because of being on Lasix to reduce his leg edema. Here he was started on spironolactone and losartan but that caused his potassium to rise. After 2 days of potassium elevation, I decreased his losartan, stopped his spironolactone. Today potassium is 5.0. As such when I sent him home he will be on intermittent Lasix, and low-dose losartan. (5) PVD (peripheral vascular disease) Assessment/Plan: Arterial Doppler ultrasound of the right leg was done and showed several areas with severe atherosclerotic stenosis. I checked his fasting lipids and his LDL is already <70 but we want a high HDL >45, and his HDL was low at 28 (all labs were reviewed). So far our treatment is : 1 baby aspirin daily [place]-3 to increase HDL This PVD will impede his wound healing. He will need further outpatient work-up and management with a vascular specialist going forward, which was discussed with him on 01/28 and with me today (6) Chronic Atrial fibrillation Conclusion/Plan: Two weeks ago, Afib was a new finding for him and he was started on beta-duane and Eliquis. He has been compliant with both meds. The heart rate at rest is under control . TSH was WNL. His Metoprolol Tartrate was changed to Succinate for even better HR control Telemetry was stopped 01/30, due to good HR control. Heart rate is consistently in the 80s, occasionally as high as 93 once today. Plan: Continue with Toprol and Eliquis Qualifiers: Atrial fibrillation type: unspecified chronic Qualified Code(s): I48.20 - Chronic atrial fibrillation, unspecified; I48.2 - Chronic atrial fibrillation (7) Chronic systolic CHF (congestive heart failure) Conclusion/Plan: Two weeks ago when he presented to the ER in [facility], he c/o leg edema and pulmonary edema was seen on chest x-ray. He was put on oral Lasix. An outpatient Echo was planned. He had not yet seen his PCP to have that Echo ordered & done. Two weeks ago he had troponins done x2 which were normal at 30 and 34. His Echocardiogram was done this admission on 01/27 which showed depressed LVEF of 45% and depressed RVEF. These were likely caused by having rapid A-fib, for unknown duration. Troponins x2 again were unremarkable at this admission. BNP at admission was 724>> 996 >> 680 (back on resumed meds) His admission CXR at admission showed no pulm edema. With this admission, he was started on Spironolactone and LEWIS inhibitor, after the Echo result, continued a beta-duane, and ordered a low salt diet. His lasix was held once due to contraction alkalosis on labs (CO2 39), and admission prerenal azotemia on labs (BUN/creat 21/0.9) (all labs were reviewed) His weight on admission was 72 kg. He was as high as 74 kg 02/01. Yesterday and today he has been 68 kg. In looking at his output, his urine output was increased on the to 4300 cc. On the he had put out 2600. the , he put out 5875 cc. The his urine output was 5875. The urine output was 4975. As of this note he has urinated 2550 cc since midnight last night. BUN and creatinine are monitored. BUN slightly bumped on the . But I think he has approached his euvolemic status. Spironolactone was stopped February 02 because of hyperkalemia. Continuing reduced low-dose losartan. I cut back his Lasix from 40 mg to 20 mg today. No changes in these medications for today (8) Hx Hypertension Conclusion/Plan: He was running blood pressures around 150 systolic/100-110 diastolic at admission. He was restarted on Losartan, Lasix and started him on Spironolactone and continued a beta-duane, for CHF and HTN treatment. Low-salt diet ordered. For the last few days his blood pressure has been "soft" at 90-110 systolic. Toprol and spironolactone were continued. On February 01 losartan was decreased to 12.5 mg daily (had been 50 mg daily). Lasix was decreased to 20 mg from 40 mg. Today systolic blood pressures been 110, 127, 95, 113. The only change in medication from yesterday to today is that he did not receive his spironolactone dose. Plan: Continue Lasix 20 mg, Toprol, losartan 12.5 mg. Qualifiers: Hypertension type: unspecified Qualified Code(s): I10 - Essential (primary) hypertension (9) Elevated bilirubin Conclusion/Plan: The patient denies alcohol use or abuse. He said he did not notice being jaundiced. He denies any history of gallbladder problems or cancer with liver mets. On admission labs, he had a mildly elevated AST, alk phos and bili was elevated at 2.3. Then bilirubin dropped to 1.3 >> then plateaued at 1.1 It is felt that he has liver congestion from CHF. 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 The details are that a Urologist in [place] saw him once and told him his prostate is very hard, and possibly cancerous. Patient responded that he did not want surgery. No other management was ever ordered for him such as prostate biopsy, seeds or chemo, or even tamsulosin or finasteride. He has been self cathing for 2 years. Order placed that patient can self cath himself as needed, put supplies in room. Patient has been straight cathing here (and for 2 years) and he stated on 01/31, that he is irritating his urethra, because of being on Lasix. He requested a Moser. Moser be inserted on 01/31. Plan: Moser care Patient has an appointment with his PCP next week and he needs a Urology referral PSA in am (11) Hypokalemia Conclusion/Plan: RESOLVED His K was 2.2. at admission, likely from being on diuretics for 2-week. K was replaced. Now he is hyperkalemic.
[2023-02-03] MEDS: LOSARTAN 50 MG TABLET PO SCH (20:27)
[2023-02-04] MEDS: HYDROcod/ACETAM 5/325 MG TABLET PO PRN (04:05)
[2023-02-04 06:07] LABS: BASOPHILS # (AUTO) 0.1 10^3/uL (0.0-0.1); BASOPHILS % (AUTO) 0.6 %; EOSINOPHILS # (AUTO) 0.1 10^3/uL (0.0-0.7); EOSINOPHILS % (AUTO) 0.7 %; HCT - HEMATOCRIT 34.2 % (42.0-52.0); HGB - HEMOGLOBIN 10.8 g/dL (14.0-18.0); LYMPHOCYTES # (AUTO) 1.7 10^3/uL (1.5-3.5); LYMPHOCYTES % (AUTO) 17.2 %; MEAN CORPUSCULAR HEMOGLOBIN 28.8 pg (27.0-31.0); MEAN CORPUSCULAR HGB CONC 31.6 g/dL (32.0-36.0); MEAN CORPUSCULAR VOLUME 91.2 fL (80.0-94.0); MEAN PLATELET VOLUME 9.1 fL (7.4-11.4); MONOCYTES # (AUTO) 1.5 10^3/uL (0.0-1.0); MONOCYTES % (AUTO) 14.9 %; NEUTROPHILS # (AUTO) 6.5 10^3/uL (1.5-6.6); NEUTROPHILS % (AUTO) 65.4 %; PLT - PLATELET COUNT 548 10^3/uL (130-450); RED BLOOD COUNT 3.75 10^6/uL (4.70-6.10); RED CELL DISTRIBUTION WIDTH 16.3 % (12.0-15.0); WHITE BLOOD COUNT 9.9 x10^3/uL (4.8-10.8)
[2023-02-04 06:19] LABS: CALCIUM 7.9 mg/dL (8.5-10.3); CREATININE 0.9 mg/dL (0.6-1.2); POTASSIUM 4.6 mmol/L (3.5-5.0)
[2023-02-04] MEDS: GABAPENTIN 300 MG CAPSULE PO SCH (08:24)
[2023-02-04] MEDS: APIXABAN 5 MG TABLET PO SCH (08:25)
[2023-02-04] MEDS: cefTRIAXone 2 GM in SODIUM CHLORIDE 0.9% MINIBAG 100 ML IV SCH (08:25)
[2023-02-04] MEDS: SACCHAROMYCES BOULARDII 250 MG CAPSULE PO SCH (08:25)
[2023-02-04] MEDS: MULTIVITAMIN W/MINERALS TABLET PO SCH (08:25)
[2023-02-04] MEDS: FUROSEMIDE 40 MG TABLET PO SCH (08:25)
[2023-02-04] MEDS: OMEGA-3 ACID ETHYL ESTERS 1 GM CAPSULE PO SCH (08:25)
[2023-02-04] MEDS: METOPROLOL SUCCINATE 50 MG TABLET PO SCH (08:25)
[2023-02-04] MEDS: ASPIRIN EC 81 MG TABLET PO SCH (08:25)
--- NOTE | 2023-02-04 08:25 | Discharge Plan ---
Discharge Plan Problem Reviewed?: Yes Disposition: Home Health Service Condition: Fair Prescriptions: HYDROcod/ACETAM 5/325 [[place] 5/325] 1 tab PO Q4HR PRN #30 tab PRN Reason: Moderate Pain (Level 4-6) Losartan [Cozaar] 0.5 tab PO DAILY #30 tab Furosemide [Lasix] 20 mg PO DAILY #30 tab [place]-3 Acid Ethyl Esters [Lovaza] 1 gm PO DAILY #30 cap Medihoney 1 ml TOP UD #30 each Metoprolol Succinate [Toprol Xl] 50 mg PO BID #60 tab Diet: Cardiac Activity Restrictions: Activity as Tolerated Shower Restrictions: No Driving Restrictions: No Assistance Devices: Cane Weight Bearing: Full Weight Instruction Topics: Heart Failure, Heart Failure Warning Signs, Heart Failure Tracking Weight, Heart Failure Being Active, Peripheral Artery Disease, Heart Failure Coping, Heart Failure Diet Changes, Disease Peripheral Vascular Dc, PAD Walking Program Health Concerns: You had developed skin breakdown on your calf, going toward your Achilles tendon. You have had edema from congestive heart failure and RILEY hose/compression hose had folded over and had caused an erosion of the skin. Combined with peripheral vascular disease (which is reduced blood flow to that leg) he developed an ischemic pressure ulcer. You probably came to the emergency room for this. We found you to have a leg infection that needed antibiotics. We also found you to have a low potassium from the new medicine you are taking for a new diagnosis of congestive heart failure. After many days, your medications have been adjusted. They may need to continue to be adjusted because of your congestive heart failure. You are on a blood thinner to reduce your risk of stroke with Eliquis. You have finished antibiotic therapy for a leg infection. The edema in your legs has dramatically improved. Your left leg is now shrunken and normal. The right leg still has some edema. Medications for congestive heart failure include a beta-duane, special blood pressure pill to relax heart muscle called an LEWIS inhibitor or ARB, and a diuretic such as Lasix. One of the medicines that we were using with your congestive heart failure and your Lasix is spironolactone. However the combination of spironolactone with losartan was causing your potassium to get dangerously high we have had to stop your spironolactone. You also have continued to have problems with urinary retention. Prior to being in the hospital you had been self catheterizing for a bladder tumor that was causing obstruction of urine outside your bladder. While here, you were with a Moser catheter. We have discontinued a Moser catheter. You will resume self- catheterization. But I strongly encourage you to see your primary care provider to make sure nothing else should be done. Plan of Treatment: Medication changes are: 1. Lasix was 80 mg a day and I am reducing it to 20 mg a day.Because of your diagnosis of congestive heart failure, you will need to take a diuretic on a regular basis. You and your primary care provider will need to monitor your daily weights, and go up or down on the Lasix as needed. 2. I am adding a pain medication of [place] which is hydrocodone and acetaminophen, 1 tablet up to 3 times a day. I can only give you 30 pills. If you need any refills you will need to call your primary care provider. 3. You were on losartan 50 mg tablets a day; we have reduced it to half a tablet a day. This is because of the effect it was having on your kidneys and blood pressure. As such you will be taking 25 mg a day. 4. Metoprolol was changed to a longer acting formulation. You were taking a short acting metoprolol with a brand name of Lopressor. We are changing it to a longer acting form and it is called Toprol XL. You will be taking that twice a day, 50 mg tablet.Not only is this medication to control your heart rate with atrial fibrillation but it is also a medication necessary and congestive heart failure. 5. Please take a multivitamin with minerals. This will help in wound healing 6. Because you have vascular disease that is impeding blood flow to your right leg, we are trying to give you medications that we will reduce your cholesterol and improve healing. As such we are also giving you Lovaza 1 g daily. 7. Because antibiotics on a long-term basis can disrupt the balance of bacteria in your bowel, we are recommending that you take an [id number] probiotic once a day while you are on antibiotics. 8. You have an arrhythmia called atrial fibrillation, and you need to be taking a blood thinner. You are to be on Eliquis 5 mg tablet twice a day since you already completed a loading dose of 10 mg twice a day for a week. 9. On your admission list you had Advil or Aleve or Naprosyn. Now that you are on a blood thinner of Eliquis, you cannot take any other nonsteroidal anti- inflammatory drugs. You cannot take ibuprofen, Aleve, Naprosyn. The only anti- inflammatory you can take at this time is aspirin 81 mg daily. Wound care instructions: Make sure you keep your wound clean and dry on a daily basis. You can take a shower but do not soak it in a tub or hot tub. Do not go swimming in the ocean. 3 times a week make sure the wound has been cleaned with sterile water, soap. Dry it. If you even have to use a blow dryer on a low setting do that. Then put Medihoney on the wound to barely cover it. Then wrapped with a clean white Kerlix bandage. You also need to see the wound care clinic once a week. There are no weightbearing restrictions. You can walk on your leg is much as possible. When you are sitting down at home. Elevate your legs when you sit down. Please see your primary care provider in the next week. You need to be referred to a vascular surgeon to see if there is any way they can open up the artery to your right leg. You should also possibly be referred to a extended day teacher since you have a new diagnosis of congestive heart failure. And normal pump ejection fraction for a heart muscle is above 55%. Sometimes as high as 65%. Your ejection fraction is down to 45%. Care Goals: Right now your goal is to have healing of the right leg wound and control of your edema from congestive heart failure. Big picture, however, is that you would like to remain on your boat for your natural lifespan. Considering that you have 2 major diseases that will significantly impact your ability to take care of yourself down the road, I am asking you to come up [place] Or having caregivers take care of you on your boat. Assessment: Patient is alert, oriented, motivated, understands instructions and has been writing everything down in his notebook. He promises to follow through Follow-Up Care: Home Health - RN, Home Health - OT, [facility] - Wound/Ostomy No Smoking: If you smoke, Please STOP! Call for help. Follow-up with: DANIA PARRA PA [Physician No Access] - Bernard Stark MD [Physician No Access] -
[2023-02-04] MEDS: MEDIHONEY TOP SCH (08:26)
[2023-02-04] MEDS: SODIUM CHLORIDE FLUSH 0.9% 10 ML SYRINGE IVP SCH (08:26)
[2023-02-04 09:58] LABS: PSA FREE 1.077 ng/mL (0.16-2.81)
[2023-02-04 09:59] LABS: PSA TOTAL 4.537 ng/mL (0.000-2.000)
[2023-02-04 11:17] VITALS: BP 123/66
--- NOTE | 2023-02-04 18:50 | DISCHARGE SUMMARY ---
Discharge Summary Admit Date: 01/27/23 Discharge Date: 02/04/23 Discharging Provider: Breanne Cordero MD Primary Care Provider: LUCILA Avila Code Status: Attempt Resuscitation Condition at Discharge: Fair Discharge Disposition: Home Health Service - DIAGNOSES Discharge Diagnoses with Status of Each Condition: 1. Open wound right lower extremity with complication 2. Peripheral vascular disease of legs 3. Chronic systolic heart failure 4. Severe edema 5. Infection due to beta-hemolytic Streptococcus 6. Cellulitis and abscess of right lower extremity 7. Chronic atrial fibrillation 8. Hypertension 9. Elevated bilirubin 10. Chronic urinary retention 11. Hypokalemia - HPI History of Present Illness: This is an 82-year-old white male who lives alone, on a boat for 23 years, moored in [place] for the past 9 yrs. He has not seen a doctor in many years. He is retired and wanted to be close to the [place]. Approximately 2 years ago he went to [facility] ER and was told he has a "tumor" causing urinary obstruction therefore he does self-catheterization. Two weeks ago he came to our ER with complaints of slowly progressing leg edema and new shortness of breath w/ exertion. He was found to be in heart failure on chest x-ray and in new onset of atrial fib. He was discharged from that ER visit on Metoprolol, Eliquis and Lasix. He has been taking these medications as prescribed and also using compression RILEY hose for the leg swelling. When he took off the RILEY hose last night, he noticed there was redness of his R leg from ankle up to the thigh, and a line of skin breakdown where the lower edge of the RILEY hose was compressing his skin. He put on Neosporin and a gauze bandage. This morning he saw the linear open wound was draining pus and\\ he called an ambulance and was brought into the ER. He denies a fever or chills. Wound cultures and blood cultures were taken, and he was given IV Ceftriaxone. Lab work-up showed elevated WBC of 15, but normal Lactic Acid level, he has a potassium of 2.2 and he has been ordered to get potassium replacement. Wound consult was requested and Dr. Stark from the [facility] saw him and was concerned about arterial insufficiency and has ordered an ultrasound arterial of the leg. The ED provider spoke to me about this patient. The patient will be admitted for management of severe hypokalemia caused by diuretic use and for treating R leg cellulitis and an purulent leg wound. I spoke to him about his CODE BLUE wishes and he wants to be a full code. History - Past Medical History Cardiovascular: reports: Congestive heart failure, Atrial fibrillation : reports: Retention (and he does self-catheterization) MRSA Hx?: No - Family & Social History Family History Comment/Other: No diseases run in the family. He has no natural children. He has a half sister who and another half sister who is alive. Living arrangement: Other (He lives on a boat in [place]) Living Situation: Alone Social History Notes: He is retired full-time [employer]. 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 He drives a car. He quit smoking 20 years ago. He drinks no alcohol. There is no drug abuse history. - CONSULTS | PROCEDURES Procedures: Chest x-ray with mild cardiomegaly. No acute pulmonary process. Duplex scan has multifocal stenosis within the right lower extremity with hemodynamically significant stenosis within the profunda and distal superficial femoral arteries. Sequela of multifocal narrowing in the lower leg. Ankle x-ray with skin irregularity in the posterior medial ankle without underlying erosion to suggest osteomyelitis Ankle MRI has ulceration in the anterior and posterior medial aspect of the right lower leg with extensive surrounding cellulitis. No abscess. No soft tissue mass. No muscle involvement. Low-grade medial and lateral ankle ligament sprain. 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 Beta-hemolytic strep grew out of the wound of his right leg on January 27 and February 01. Blood cultures were negative. Echocardiogram done for new onset atrial fibrillation. Normal LV size and mildly reduced systolic function with an LVEF of 45 to 50%. Dilated RV with low normal systolic function. Moderate tricuspid regurg. Mild to moderate mitral regurg. - HOSPITAL COURSE Hospital Course: (1) Open wound of right lower leg with complication Impression: At this time, it is felt that he has an ischemic ulcer. But there is also evidence that there was some pressure where he had skin breakdown from compression of the RILEY hose edge. It started 2 days before admission. On admission exam he had substantial leg edema, redness and heat. The legs been gradually improving with reduction in edema and wrinkling of the skin. But he continues to have woody edema over that right leg. Evaluation shows he does have positive peripheral vascular disease on ABIs. He has been seen by wound clinic twice while here. On January 30 it appeared that the ulcer may be worsening. But it is staying stable between then and now. He has been on Rocephin 2 g daily for antibiotics. Iota 5/325 every 4 hours as needed for pain, Neurontin 900 mg daily. Although objective data of sed rate and white cell count showed worsening, his physical exam was staying stable. His IV antibiotics were changed to oral antibiotics. Wound care instructions were given verbally to the patient as well as written down for his discharge plan. He needs to see his primary care provider Tal Combs. He will follow-up in the wound clinic in the next couple of days. Dressing changes will be 3 times a week. He also needs to be referred to a vascular surgeon for evaluation and possible treatment of peripheral vascular disease of the leg. I explained to him that he needs good blood flow to help heal that leg. (2) Infection due to beta-hemolytic Streptococcus Assessment/Plan: Beta hemolytic strep has grown out from the admission culture as well as the February 01 wound clinic culture. Initially he was on IV vancomycin which was changed to ampicillin which was changed to p.o. Augmentin. When his wounds seem to worsen January 30 he was resumed on IV antibiotics and he is on Rocephin. Rocephin was then changed to p.o. Keflex. At the time of discharge this patient has had 8 days of IV antibiotic therapy. (3) Cellulitis Qualifiers: Site of cellulitis: extremity Site of cellulitis of extremity: lower extremity Laterality: right Qualified Code(s): L03.115 - Cellulitis of right lower limb Assessment/Plan: Improved The source appeared to be the wound of the R ankle. The entire right leg was red at admission. Over the course of the admission, the redness slowly faded. The patient was left with a reddish-brown woody edema of the skin. The infected leg still had 1+ edema in comparison to the left leg which was now shrunken, and no evidence of infection, venous stasis. Qualifiers: Site of cellulitis: extremity Site of cellulitis of extremity: lower extremity Laterality: right Qualified Code(s): L03.115 - Cellulitis of right lower limb (4) Hyperkalemia When he was admitted, the patient had hypokalemia because of being on Lasix to reduce his leg edema. Here he was started on spironolactone and losartan but that caused his potassium to rise. After 2 days of potassium elevation, I decreased his losartan, stopped his spironolactone. Potassium came down with this. He was 5.6 on February 02. By discharge he was 4.6. I sent him home on intermittent Lasix, low-dose losartan. No spironolactone. (5) PVD (peripheral vascular disease) Assessment/Plan: Arterial Doppler ultrasound of the right leg was done and showed several areas with severe atherosclerotic stenosis. I checked his fasting lipids and his LDL was already <70 but we want a high HDL >45, and his HDL was low at 28 (all labs were reviewed). Our treatment consisted of 1 baby aspirin daily and [place]-3 to increase HDL This PVD will impede his wound healing. He will need further outpatient work-up and management with a vascular specialist going forward. This was reiterated to the patient several times. (6) Chronic Atrial fibrillation Conclusion/Plan: Two weeks ago, Afib was a new finding for him and he was started on beta-duane and Eliquis. He has been compliant with both meds. The heart rate at rest is under control . TSH was WNL. His Metoprolol Tartrate was changed to Succinate for even better HR control. Telemetry was stopped 01/30, due to good HR control. Heart rate is consistently in the 80s, occasionally as high as 93 once today. Qualifiers: Atrial fibrillation type: unspecified chronic Qualified Code(s): I48.20 - Chronic atrial fibrillation, unspecified; I48.2 - Chronic atrial fibrillation (7) Chronic systolic CHF (congestive heart failure) Conclusion/Plan: Two weeks ago when he presented to the ER in [facility], he c/o leg edema and pulmonary edema was seen on chest x-ray. He was put on oral Lasix. An outpatient Echo was planned. He had not yet seen his PCP to have that Echo ordered & done. Two weeks ago he had troponins done x2 which were normal at 30 and 34. His Echocardiogram was done this admission on 01/27 which showed depressed LVEF of 45% and depressed RVEF. These were likely caused by having rapid A-fib, for unknown duration. Troponins x2 again were unremarkable at this admission. BNP at admission was 724>> 996 >> 680 (back on resumed meds) His admission CXR at admission showed no pulm edema. With this admission, he was started on Spironolactone and LEWIS inhibitor, after the Echo result, continued a beta-duane, and ordered a low salt diet. His lasix was held once due to contraction alkalosis on labs (CO2 39), and admission prerenal azotemia on labs (BUN/creat 21/0.9) (all labs were reviewed) His weight on admission was 72 kg. He was as high as 74 kg 02/01. By discharge he was 67.5 kg. BUN and creatinine were monitored. BUN slightly bumped on the . But I think he has approached his euvolemic status. Spironolactone was stopped February 02 because of hyperkalemia. Continuing reduced low-dose losartan. I cut back his Lasix from 40 mg to 20 . (8) Hx Hypertension Conclusion/Plan: He was running blood pressures around 150 systolic/100-110 diastolic at admission. He was restarted on Losartan, Lasix and started him on Spironolactone and continued a beta-duane, for CHF and HTN treatment. Low-salt diet ordered. In the initial few days of admission, his blood pressure had been "soft" at 90- 110 systolic. Toprol and spironolactone were continued. On February 01 losartan was decreased to 12.5 mg daily (had been 50 mg daily). Lasix was decreased to 20 mg from 40 mg. Systolic blood pressures improved to 110, 127, 95, 113. I will Continue Lasix 20 mg, Toprol, losartan 12.5 mg. Qualifiers: Hypertension type: unspecified Qualified Code(s): I10 - Essential (primary) hypertension (9) Elevated bilirubin Conclusion/Plan: The patient denies alcohol use or abuse. He said he did not notice being jaundic ed. He denies any history of gallbladder problems or cancer with liver mets. On admission labs, he had a mildly elevated AST, alk phos and bili was elevated at 2.3. Then bilirubin dropped to 1.3 >> then plateaued at 1.1 It is felt that he has liver congestion from CHF. 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 The details are that a Urologist in [place] saw him once and told him his prostate is very hard, and possibly cancerous. Patient responded that he did not want surgery. No other management was ever ordered for him such as prostate biopsy, seeds or chemo, or even tamsulosin or finasteride. He has been self cathing for 2 years. Order placed that patient can self cath himself as needed, put supplies in room. Patient has been straight cathing here (and for 2 years) and he stated on 01/31, that he is irritating his urethra, because of being on Lasix. He requested a Moser. Moser be inserted on 01/31. He did not want a have it at discharge. As such it was discontinued. PSA at discharge was 4.537. (11) Hypokalemia Conclusion/Plan: RESOLVED His K was 2.2. at admission, likely from being on diuretics for 2-week. K was replaced. Now he is hyperkalemic. He was discharged in stable condition. Temperature is 36.5. Heart rate 80. Blood pressure 123/66. Respirations 18. 97% on room air. He is 5 foot 10 inches tall, 67.5 kg. He is a delightful conversationalist. Medium height thin elderly man with glasses. Slightly deaf. But lucid, no cognitive deficits. Neck was supple with shotty adenopathy. Lungs were clear to auscultation and percussion and he did not have any increased respiratory effort, use of accessory muscles with speaking or ambulating in the room. He had an irregular rate and rhythm. Systolic murmur. The abdomen was soft, nontender. The right leg had the woody brown edema with wrinkled skin. He said that his edema had improved substantially from admission. I had not seen him on admission but he tells me that the redness of his leg has just faded to a brown color. The left leg is now completely shriveled and shrunken from no edema. No discoloration no ulcers. The ulcer on the right leg is completely covered with a Kerlix wrap. We talked about cleaning it with soap and water. Gently drying it. Make sure that it is dry as possible before he was Medihoney on it and then we wrapped it with Kerlix. He says that he is going to be seeing the wound clinic in follow- up. I have asked him to see his primary care provider in follow-up. Follow through on the instructions with the wound clinic. Greater than 30 minutes was spent coordinating discharge This document was made in part using voice recognition software. While efforts are made to proofread this document, sound alike and grammatical errors may occur. - ALLERGIES Allergies/Adverse Reactions: Allergies Allergy/AdvReac Type Severity Reaction Status Date / Time No Known Drug Allergies Allergy Verified 01/12/23 18:55 - MEDICATIONS Home Medications: Ambulatory Orders Medication Instructions Recorded Confirmed Gabapentin [Neurontin] 3 cap PO DAILY 01/27/23 01/27/23 Metoprolol Tartrate [Lopressor] 2 tab PO DAILY 01/27/23 01/27/23 Apixaban [Eliquis] 5 mg PO BID tab 02/04/23 Aspirin EC [Ecotrin] 81 mg PO DAILY tab 02/04/23 Furosemide [Lasix] 20 mg PO DAILY #30 tab 02/04/23 HYDROcod/ACETAM 5/325 [Iota 5/325] 1 tab PO Q4HR PRN #30 tab 02/04/23 Losartan [Cozaar] 0.5 tab PO DAILY #30 tab 02/04/23 Medihoney 1 ml TOP UD #30 each 02/04/23 Metoprolol Succinate [Toprol Xl] 50 mg PO BID #60 tab 02/04/23 Multivitamin W/Minerals [Theragran 1 tab PO DAILYWM tab 02/04/23 M] [place]-3 Acid Ethyl Esters [Lovaza] 1 gm PO DAILY #30 cap 02/04/23 - LABS Result Diagrams: 02/04/23 05:27 02/04/23 05:27
== END 2023-02-04 12:20 | disposition home health service (06) | DRG 593 ==
LOC: EDUNIT# → ED 08:39 → MS2 13:44
PROVIDERS: ADMIT Internal Medicine; ATTEND Specialist
DX: L89.519 Pressure ulcer of right ankle, unspecified stage (principal); I48.20 Chronic atrial fibrillation, unspecified; E87.3 Alkalosis; I48.91 Unspecified atrial fibrillation; I50.9 Heart failure, unspecified; L03.115 Cellulitis of right lower limb; I50.22 Chronic systolic (congestive) heart failure; R17 Unspecified jaundice; N13.8 Other obstructive and reflux uropathy; E87.6 Hypokalemia; I11.0 Hypertensive heart disease with heart failure; B95.4 Other streptococcus as the cause of diseases classified elsewhere; R33.8 Other retention of urine; M19.071 Primary osteoarthritis, right ankle and foot; B95.7 Other staphylococcus as the cause of diseases classified elsewhere; Z79.01 Long term (current) use of anticoagulants; T50.1X5A Adverse effect of loop [high-ceiling] diuretics, initial encounter; D49.4 Neoplasm of unspecified behavior of bladder; S30.1XXA Contusion of abdominal wall, initial encounter; X58.XXXA Exposure to other specified factors, initial encounter; S93.401A Sprain of unspecified ligament of right ankle, initial encounter; I73.9 Peripheral vascular disease, unspecified; E87.5 Hyperkalemia; T50.0X5A Adverse effect of mineralocorticoids and their antagonists, initial encounter; T46.5X5A Adverse effect of other antihypertensive drugs, initial encounter; Y92.230 Patient room in hospital as the place of occurrence of the external cause
CPT/HCPCS: 36415; 71045; 73600; 73723; 80048; 80053; 80061; 80076; 83605; 83690; 83735; 83880; 84132; 84153; 84154; 84443; 84484; 85025; 85651; 87040; 87070; 87077; 87205; 93005; 93306; 93926; 96365; 96367; 97116; 97161; 97166; 97530; 97535; 99285; A9270; A9585; J3370; 83721

== ENCOUNTER 2023-03-16 12:35 | Outpatient (CLI) | payer MEDICARE, OTHER ==
--- NOTE | 2023-02-17 14:59 | WOUND CARE PROGRESS NOTE ---
Assessment/Plan - Home Meds/Allergies Allergies No Known Drug Allergies Allergy (Verified 01/12/23 18:55)
== END 2023-03-16 12:36 | disposition home or self-care (01) ==
LOC: DI 12:35
PROVIDERS: ATTEND Student in an Organized Health Care Education/Training Program
DX: I48.91 Unspecified atrial fibrillation (principal); I08.1 Rheumatic disorders of both mitral and tricuspid valves
CPT/HCPCS: 93306

== ENCOUNTER 2023-04-06 16:39 | Outpatient (CLI) | payer MEDICARE, OTHER ==
[2023-04-06 17:32] LABS: CALCIUM 9.7 mg/dL (8.5-10.3); CREATININE 1.1 mg/dL (0.6-1.3); POTASSIUM 4.6 mmol/L (3.5-4.5)
== END 2023-04-06 16:40 | disposition home or self-care (01) ==
LOC: LAB 16:39
PROVIDERS: ATTEND Family Medicine
DX: I50.9 Heart failure, unspecified (principal); L97.312 Non-pressure chronic ulcer of right ankle with fat layer exposed; L97.212 Non-pressure chronic ulcer of right calf with fat layer exposed; I73.9 Peripheral vascular disease, unspecified
CPT/HCPCS: 36415; 80048; 83880

== ENCOUNTER 2023-05-18 12:31 | Outpatient (CLI) | payer MEDICARE, OTHER ==
[2023-05-18 13:25] LABS: CALCIUM 9.9 mg/dL (8.5-10.3); CREATININE 1.2 mg/dL (0.6-1.3); POTASSIUM 5.7 mmol/L (3.5-4.5)
[2023-05-18] MEDS ORDERED: iohexoL-300 100 ML VIAL IVP ONE (18:27)
--- NOTE | 2023-05-19 18:38 | CT Report ---
PROCEDURE: ANGIO ABD RUNOFF W/WO - B/L INDICATIONS: PVD CONTRAST: 125mL Omni 300 TECHNIQUE: After the administration of intravenous contrast, a CT scan of the abdomen, pelvis and lower extremit ies (to the feet) was performed. Images were recorded and evaluated at appropriate window settings. R eformats: coronal and sagittal. For radiation dose reduction, the following was used: automated expos ure control, adjustment of mA and/or kV according to patient size. COMPARISON: None. FINDINGS: Image quality: Excellent. Abdominal aorta: No evidence of acute aortic syndrome. No significant aneurysm. Moderate atheroscler otic disease of the abdominal aorta with calcified and noncalcified plaque. Origins of the celiac, SM A, WESLEY and bilateral renal arteries are patent with no high-grade stenosis. Mild atherosclerotic ossi fication at the origins of the celiac and SMA. Right lower pole accessory renal artery. Right lower extremity: Common iliac artery: No high-grade stenosis. Moderate atherosclerotic disease. External iliac artery: No high-grade stenosis. Moderate to severe atherosclerotic disease. Internal iliac artery: Moderate stenosis at the origin. Moderate to severe scattered atherosclerotic disease. Common femoral artery: No high-grade stenosis. Moderate atherosclerotic calcification. Profunda femoral artery: Patent with mild atherosclerotic disease. Superficial femoral artery: Proximal SFA demonstrates mild to moderate multilevel stenoses. Mid SFA d emonstrates multifocal severe stenoses/occlusion. Distal SFA is chronically occluded (series 4 image [id number]). Popliteal artery: Marked atherosclerotic disease with proximal reconstitution via profunda collateral s. Moderate to severe multifocal stenoses. Below the knee: Evaluation for patency is limited due to atherosclerotic disease. Within these limita tions, peroneal artery appears patent. JYOTI and CONSTRUCTION EQUIPMENT OVERHAULER appear patent with multifocal stenoses and threadl shanae flow. Below the ankle mortise, the dorsalis pedis and distal posterior tibial artery and plantar branches are patent. Left lower extremity: Common iliac artery: No high-grade stenosis. Moderate atherosclerotic disease. External iliac artery: No high-grade stenosis. Moderate to severe atherosclerotic disease. Internal iliac artery: Proximal internal iliac artery is chronically occluded. Branches are reconstit uted likely from cross pelvic collaterals. Common femoral artery: No high-grade stenosis. Moderate atherosclerotic calcification. Profunda femoral artery: Trifurcation, anatomic variant. Patent with mild atherosclerotic disease. Superficial femoral artery: Proximal SFA demonstrates mild to moderate multilevel stenoses. Mid SFA d emonstrates multifocal severe stenoses. Distal SFA is chronically occluded (series 4 image [id number]). Popliteal artery: Marked atherosclerotic disease with chronic occlusion of the proximal segment. Dist al short segment reconstitution via geniculate collaterals (4/379) with moderate to severe multifocal stenosis/occlusion. Below the knee: Evaluation for patency is limited due to atherosclerotic disease. Within these limita tions, peroneal artery appears chronically occluded. JYOTI and CONSTRU[employer] EQUIPMENT OVERHAULER demonstrate threadlike flow and do n ot appear patent below the ankle mortise. OTHER: Lung bases and heart: No suspicious pulmonary nodule or consolidation. No basilar effusion. Coronary vessel calcifications.. Arterial phase imaging limits evaluation of the visceral organs. Liver: Noncirrhotic liver morphology. No arterially enhancing mass. Gallbladder and biliary tree: Unremarkable. Spleen: No splenomegaly. Pancreas: No pancreatic ductal dilation. Adrenals: No adrenal nodule. Kidneys and ureters: Symmetric enhancement with no hydronephrosis or nephrolithiasis. Left interpolar simple cyst. Bowel and peritoneum: Small and large bowel is normal in caliber, without obstruction. Sigmoid and co lonic diverticulosis, without diverticulitis. No pneumatosis, pneumoperitoneum or portal venous gas. Lymph nodes: No central or retroperitoneal adenopathy by size criteria. Reproductive organs: Moderate prostatomegaly. Bladder: No abnormal wall thickening, accounting for underdistention. Pelvic lymph nodes: No pelvic adenopathy by size criteria. Bones: No acute fracture. No aggressive appearing lytic or blastic osseous lesion. Severe degenerativ e changes of the bilateral hips. Moderate to marked multilevel degenerative changes of the spine. Other: Small fat-containing umbilical hernia. Bilateral lower extremity soft tissue swelling. IMPRESSION: 1. Right lower extremity: -Mid SFA multifocal severe stenosis/occlusion and distal SFA chronic occlusion. -Popliteal artery reconstitution via profunda collaterals with marked atherosclerotic disease. -[id number] runoff evaluation is limited secondary to atherosclerotic disease. Within these limit ations, patent three-vessel runoff extending below the ankle mortise with threadlike flow. Consider c orrelation with arterial duplex. 2. Left lower extremity: -Mid SFA multifocal severe stenosis/occlusion and distal SFA chronic occlusion. -Proximal popliteal artery chronic occlusion. Distal popliteal artery reconstitution via geniculate c ollaterals with moderate to severe multifocal stenoses/occlusion. -[id number] runoff evaluation is limited secondary to atherosclerotic disease. Within these limit ations, peroneal artery is chronically occluded. JYOTI and CON[employer] EQU[employer]MENT OVERHA[employer]ER demonstrating threadlike flow to the ank le mortise. Dorsalis pedis and distal CONSTRU[employer] EQUIPMENT OVERHAULER do not appear patent below the ankle mortise which may be s econdary to delayed inflow. Consider correlation with arterial duplex. 3. No abdominal aortic aneurysm. Moderate atherosclerotic disease of the abdominal aorta, described a kartik. 4. Moderate prostatomegaly. Reviewed by: Marlen Soriano MD on 05/19/2023 6:37 PM PDT Approved by: Marlen Soriano MD on 05/19/2023 6:37 PM PDT Station ID: [id number]
== END 2023-05-18 12:32 | disposition home or self-care (01) ==
LOC: LAB 12:31
PROVIDERS: ATTEND Surgery Vascular Surgery
DX: N14.11 Contrast-induced nephropathy (principal); T50.8X5A Adverse effect of diagnostic agents, initial encounter; I70.203 Unspecified atherosclerosis of native arteries of extremities, bilateral legs; I70.0 Atherosclerosis of aorta; N40.0 Benign prostatic hyperplasia without lower urinary tract symptoms
CPT/HCPCS: 36415; 75635; 80048; Q9967